=== PATIENT | female | born 1950 ===

== ENCOUNTER 2025-02-02 09:14 | Outpatient (REF) | payer OTHER, SELFPAY ==
[2025-02-02 13:06] LABS: MANUAL DIFF FLAG NO
[2025-02-02 13:13] LABS: Hematocrit 39.4 % (37.0-47.0); Hemoglobin 13.0 g/dl (12.0-16.0); Imm Gran Abs Auto 0.04 X10*3/uL (0.00-0.03); Imm Gran Pct Auto 0.5 % (0.0-0.4); Lymphocytes Absolute Auto 3.2 X10*3/uL (1.2-4.9); Mean Corpuscular HGB Conc 33.0 g/dl (31.0-35.0); Mean Corpuscular Hemoglobin 28.8 pg (27.0-33.0); Mean Corpuscular Volume 87.2 fL (80.0-98.0); NRBC Abs Auto 0.000 X10*3/uL (0.0-0.012); NRBC Pct Auto 0.0 /100WBC (0.0-0.2); Platelet Count 340 X10*3/uL (160-400); Red Blood Count 4.52 X10*6/uL (4.20-5.50); White Blood Count 7.4 X10*3/uL (4.8-10.8)
[2025-02-02 13:37] LABS: Alanine Aminotransferase 22 U/L (0-31); Albumin Level 4.7 g/dL (3.5-5.0); Alkaline Phosphatase 78 U/L (39-117); Anion Gap 13 (12-20); Aspartate Amino Transferase 23 U/L (5-31); Blood Urea Nitrogen 9 mg/dL (9-16); Calcium 9.9 mg/dL (8.4-10.2); Carbon Dioxide 25 mmol/L (22-29); Chloride 105 mmol/L (96-108); Cholesterol 221 mg/dL (<200); Estimated Glomerular Filt Rate > 60; HDL Cholesterol 45 mg/dL (>40); Magnesium 1.9 mg/dL (1.6-2.6); Potassium 3.9 mmol/L (3.3-5.1); Sodium 139 mmol/L (135-145); Total Protein 7.6 g/dL (6.5-8.0); Triglycerides 197 mg/dL (<150)
[2025-02-02 13:58] LABS: Folate 15.1 ng/mL (> or = 4.0); Vitamin B12 421 pg/mL (200-900)
[2025-02-03 04:28] LABS: Syphilis Screen Nonreactive (Nonreactive)
[2025-02-03 04:50] LABS: HBS Num1 0.65 mIU/mL (0-7.99); HBsAGNum1 0.43 S/CO (0.00-0.99); HIV Num 1 0.05 S/CO (0.00-0.99); Hepatitis B Surface Antigen Negative (Negative); ~HepC Num1 0.07 S/CO (0.00-0.79); ~Hepatitis B Surface Antibody NONREACTIVE (Nonreactive); ~Hepatitis C Antibody Nonreactive (Nonreactive)
[2025-02-06 05:13] LABS: VITAMIN D (1,25 OH) D3 42 pg/mL; Vit D (1,25-Dihydroxy) Total 42 pg/mL (18-72); Vitamin D (1,25 OH) D2 <8 pg/mL
== END 2025-02-02 09:15 | disposition home or self-care (01) ==
LOC: HO.HKASLDS 09:14
PROVIDERS: PCP Student in an Organized Health Care Education/Training Program; Visit Provider Student in an Organized Health Care Education/Training Program
DX: Z76.89 Persons encountering health services in other specified circumstances (principal); Z11.4 Encounter for screening for human immunodeficiency virus [HIV]; K21.9 Gastro-esophageal reflux disease without esophagitis; I10 Essential (primary) hypertension; E78.5 Hyperlipidemia, unspecified; E11.40 Type 2 diabetes mellitus with diabetic neuropathy, unspecified
CPT/HCPCS: 36415; 80053; 80061; 82607; 82652; 82746; 83036; 83735; 84443; 85025; 86706; 86780; 86803; 87340; 87389

== ENCOUNTER 2025-02-02 09:14 | Outpatient (AMB) | payer OTHER, SELFPAY ==
--- OUTSIDE RECORDS SUMMARY | 2012-02-05 04:00 | XMS_ITS | Continuity of Care Document ---
Author Organization [facility] Address [address] [place] [address] Phone Care Team Providers Care Biostatistics Professor Name Role Phone Unavailable Unavailable Unavailable Allergies, Adverse Reactions, Alerts Substance Reaction Status Criticality No Known Allergies Active No Inform ation Medications Medication Instructions Dosage Effective Dates (start - stop) Status Comments Glipizide 5 mg Tab take 1 tablet (5MG) by ORAL route every day before meals 5 MG - No Longer Active Metformin 500 mg Tab take 1 tablet (500MG) by ORAL route 2 times every day with morning and evening meals 500 MG - No Longer Active Lisinopril 20 mg Tab take 1 tablet (20MG) by ORAL route every day 20 MG - No Longer Active Procedures Procedure Date COMPLETE CBC W/AUTO DIFF WBC BASIC METABOLIC PANEL LIPID PANEL GLYCATED HEMOGLOBIN TEST MICROALBUMIN, QUANTITATIVE SPECIMEN HANDLING OFFICE/OUTPATIENT VISIT, [facility] Advance Directives Directive Yes / No Effective Date File Name No Information Encounters Encounter Description Practice Location Reason(s) For Visit Diagnoses Date Provider Providers Copied on Encounter [facility], [address], [place], [id number], [place] tel:[phone] [facility] Labs only (chief complaint) No Information 2 No Information OFFICE/OUTPA TIENT VISIT, [facility], [address], [place], [id number], [place] tel:[phone] [facility] DM/HTN (chief complaint) Diabetes Mellitus Type 2, Uncomplicated Hypertension, BenignObesity 2-201 2 No Information Family History Family Member Type Diagnosis Age At Onset No Information Payers Payer name Insurance type Covered republican ID Authoriza tion(s) No Information Social History [...]
--- OUTSIDE RECORDS SUMMARY | 2016-10-28 04:45 | XMS_ITS | Continuity of Care Document ---
Author Organization [facility] Address [address] [place] [address] Phone Care Team Providers Care Dolly Pusher Name Role Phone [facility] Unavailable Unavailable Procedures Procedure Date ELECTROCARDIOGRAM, COMPLETE OBSERV/HOSP SAME DATE EYE EXAM, NEW PATIENT Bilat dil retinal exam Advance Directives Directive Yes / No Effective Date File Name No Information Encounters Encounter Description Practice Location Reason(s) For Visit Diagnoses Date Provider Providers Copied on Encounter [facility], [address], [place], [address], [place] tel:[phone] [facility] SWA (chief complaint) Encounter for screening for cardiovascular disorders [facility]. [address] [place], [address], [place]. tel:[phone] Referring Provider: VAMSI GRANADOS, [address] [facility], [place], [address]. tel:[phone] OBSERV/HOSP SAME DATE [facility], [address], [place], [address], [place] tel:[phone] [facility] No Information Jn Wooten. [address], [address], [place], [address]. tel:[phone] [facility], [address], [place], [address], tel:[phone] [facility] retinal exam (chief complaint) Diabetes mellitus treated with oral medication Anthony Bustamante. [address], [address], [place], [id number] . tel:[phone] Family History Family Member Type Diagnosis Age At Onset No Information Payers Payer name Insurance type Covered constitution party ID Authordeyaniraa gabe(s) [facility] [id number] Social History Type Description Quantity Date Captured Comments Sex Female Smoking Status No Information Vital Signs Date / Time: Height Weight BMI Pulse Rate Blood Pressure Temperature Respiratory Rate Body Surface Area Head Circumference Head Circ. Percentile Wt./Justo. Percentile BMI percentile Pulse Ox Inhaled Ox 8:39 AM 56.00 in 73.028 kg (161.00 lbs) 36.0 9 kg/m eter (2) 73 /min 130/72 mm[Hg] 97.00 F 16 /min 1.70 meter(2) 98 % Chief Complaint And Reason For Visit From encounter dated '10/28/2016 08:45'. SWA (chief complaint). Description: SEE SCANNED DOCUMENTS. Reason For Referral Reason For Referral No Information Plan Of Treatment Date Type Action Status Goal Zoster vaccine. Due on due Goal DEXA scan. Due on 7 due Goal Td vaccine. Due on 17 due Goal Depression screening. Due on due Goal FOBT. Due on due Goal Eye Exam. Due on due Goal Foot Exam. Due on 7 due Goal Mammogram. Due on 7 due Goal Colonoscopy. Due on 017 due Goal Sigmoidoscopy. Due on due Goal Influenza vaccine. Due on due Goal Tdap. Due on due Goal Pap/HPV testing. Due on due Goal Pneumococcal vaccine. Due on due History Of Present Illness Encounter Date Complaint History Of Prese nt Illness SWA SEE SCANNED DOCU MENTS. Functional Status Date Functional Assessmen t Pain Score 0/10 Instructions Date Instruction Additional Infor mation No Information Assessments Type Assessment Date No Information Patient Care Teams Name Effective Dates (start - stop) Status Members No Information
--- OUTSIDE RECORDS SUMMARY | 2022-01-15 10:03 | XMS_ITS | Continuity of Care Document ---
Author Organization [facility] Address [address] [place] [address] Care Team Providers Care Internal Medicine Hospitalist Name Role Phone Rivas OD, Lavender Unavailable Unavailable Advance Directives Directive Yes / No Effective Date File Name No Information Encounters Encounter Description Practice Location Reason(s) For Visit Diagnoses Date Provider Providers Copied on Encounter [facility], [address], [place], [place], [id number], [place] [address] LMO routine exam (chief complaint) No Information Rivas Lavender. [address] [facility], [address], [place], [place], [address], [place]. tel:[phone] Family History Family Member Type Diagnosis Age At Onset No Information Payers Payer name Insurance type Covered democrat ID Authoriza tion(s) No Information Social History [...]
--- OUTSIDE RECORDS SUMMARY | 2023-10-20 05:15 | XMS_ITS ---
Author Organization [employer] Address [address] [place] [address] Care Team Providers Care Lathmaker Name Role Phone Wilfrido SUNG, Niraj Primary Care Provider Edson Garces PA-C REASON FOR VISIT 3m fasting labs Encounters Encounter Location Date Provider Diagnosis [facility] [address] [place] [id number] 10/20/2023 Edson Garces Plan Of Treatment No Information Progress Notes * Mimi ALBRECHTDOB:1950 (74 yo F)Acc No.[id number]:10/20/2023 UNLOCKED PROGRESS NOTE Patient: Mimi Gleason Provider: Solange Garces PA-C :1950 A ge:73 Y S ex:Female Date:10/20/2023 Address:[facility] [place] [facility] [id number] Pcp:Niraj Anna MD Subjective: * Chief Complaints: * 3 m fasting labs Objective: Past Vitals:* 07/21/2023 BP:sittin/59mm Hg, RR:1 6/min, Pulse:sittin/min, Temp:oral:97.3F, Ht:56in, Wt:148.2lbs, BMI:33.22Index, Oxygen Sat:Room Air:98%, Pain Scale:01-10 * Electronic signature of Vlad Garces PA-C, PA-C on 02/02/2025 at 09:01 AM CDT Sign off status: Pending * Provider: Solange Garces PA-C Date: 0 10/20/2023 Generated for Anjali madison/Lv/Isabelle on: 1 09:01 AM CDT
--- OUTSIDE RECORDS SUMMARY | 2023-12-04 09:15 | XMS_ITS ---
Author Organization [facility] Billing Info Address [address] [place], [place] [address] Care Team Providers Care Tank Cleaning Supervisor Name Role Phone Unruly Kenney Primary Care Provider Unavailabl e UNRULY KENNEY Unavailable [phone] DOMINIC SHANKS Unavailable [phone] Allergies Allergen (clinical drug ingredient) Drug/Non Drug Allergy documented on EMR Reaction Allergy Type Onset Date Status empagliflozin Jardiance nausea/vomiting Drug Allergy Active trazodone Trazodone intolerance Drug Allergy Activ e Reason For Referral Reason eval and treat Diagnosis 1 Left lumbar radiculo chuy (M54.16) Referral Organization [id number] Referring Provider First Name DOMINIC Referring Provider Last Name DIMITRIS Referring Provider Speciality Nurse Prac titioner Referred Provider [place] Referred Provider Specialty Physical The rapy General Notes KRISTI JACOBS 01:23:31 PM >eval and treat [facility] Clinical Notes KRISTI JACOBS 02:47:05 PM >left message for patient to call and schedule an appointment with specialist, KRISTI VICENTE 12/11/2023 10:27:43 AM >rerouted per patientJULES MELISSA 12/11/2023 10:29:43 AM >left message for patient to call and schedule an appointment with specialist Referral Priority Routine REASON FOR VISIT Lt glut / leg pain x 3/d w/ radiculapathy [id number] Medications Medication SIG (Take, Route, Frequency, Duration) [...] 12/04/2023 Encounters Encounter Location Date Provider Diagnosis [id number] [address] [address] [place], [place] [id number] 12/04/2023 DOMINIC SHANKS Left lumbar radiculopathy M54.16 [...] 12/04/2023, eval and treat, Spine and Rehab [place] Next Appt Details Follow Up: prn, Reason: Progress Notes * Mimi ALBRECHTDOB:1950 (73 yo F)Acc No.[id number]:12/04/2023 PROGRESS NOTE Patient: Mimi BENTLEY Provider: MOSHE Pace :1950 A ge:73 Y S ex:Female Date:12/04/2023 C #:[id number] Address:[address] [place] [address], [facility] Pcp:Unruly Kenney Patient's Default Facility:[address] [place] [address] MED [facility] Subjective: * Chief Complaints: * L t glut / leg pain x 3/d w/ radiculapathy [id number] * HPI: F irst Point of Contact [...] or a close contact traveled outside the [facility] and you are now ill? N o [...] pain. Pt has a pending trip to [place]. * Medical History: * Surgical History: N [...] ast Orders: L ab:Comp. Metabolic Panel (14) ([id number]) (Order Date - 10/02/2023) (Collection Date & [...] 0 12/04/2023 Generated for Anjali madison/Lv/Isabelle on: 1 08:59 AM CDT History and Physical Notes * HPI [...] pain. Pt has a pending trip to [place]. First Point of Contact Screening Do any [...]
--- OUTSIDE RECORDS SUMMARY | 2023-12-08 05:49 | XMS_ITS ---
Author Organization [facility]ician [facility] Billing Info Address [address] [place], [place] [address] Care Team Providers Care Gear Technician Name Role Phone Sinan Kenney Primary Care Provider SINAN Olivas Unavailable [phone] REASON FOR VISIT New Referral Encounters Encounter Location Date Provider [id number] [address] [address] [place], [place] [address] 12/08/2023 SINAN KENNEY Plan Of Treatment No Information Progress Notes * Mimi ALBRECHTDOB:1950 (73 yo F)Acc No.[id number]:12/08/2023 Patient: Mimi BENTLEY :1950 A ge:73 Y S ex:Female Address:[address], [place], [address] * true * Date: Generated for Printi ng/Fajoyg/eTransmitting on: 09:00 AM CDT
--- OUTSIDE RECORDS SUMMARY | 2023-12-18 05:03 | XMS_ITS ---
Author Organization [facility] Billing Info Address [address] [place], [place] [address] Care Team Providers Care Director Of Global Sales Name Role Phone Unruly Kenney Primary Care Provider UNRULY Olivas [facility] [phone] REASON FOR VISIT Refill Medications Medication SIG (Take, Route, Frequency, Duration) Notes Start Date End Date Status Amlodipine Besylate 10 MG 1 tablet Orally Once a day Active Encounters Encounter Location Date Provider Diagnosis [id number] [address] [address] [place], [place] [address] 12/18/2023 UNRULY KENNEY Essential hypertensi on I10 [...] Notes * AMBROCIO MimiDOB:1950 (73 yo F)Acc No.[id number]:12/18/2023 Patient: Mimi BENTLEY :1950 A ge:73 Y S ex:Female Address:[facility] [address], [place], [address] * Refills Refill Amlodipine Besylate Tablet, 10 MG, Orally, 1 tablet, Once a day Stop Telmisartan-HCTZ Tablet, 80-12.5 MG, Orally, 1 tablet, Once a day in AM for high blood pressure * true * Date: Generated for Anjali madison/Lv/Isabelle on: 1 08:59 AM CDT
--- OUTSIDE RECORDS SUMMARY | 2024-01-14 10:00 | XMS_ITS ---
Author Organization [facility] Billing Info Address [address] [place], [place] [address] Care Team Providers Care Accountant Controller Name Role Phone Sinan Kenney Primary Care Provider SINAN Olivas [facility] [phone] Allergies Allergen (clinical drug ingredient) Drug/Non Drug [...] smoker Encounters Encounter Location Date Provider Diagnosis [id number] [facility] [address] [address] [place], [place] [phone] 01/14/2024 SINAN KENNEY Assessments Encounter Date Diagnosis (ICD Code) Assessment Notes Treatment Notes Treatment Clinical Notes Section Notes 01/14/2024 Other A Healthy Lifestyle: Care Instructions material was published Plan Of Treatment Treatment Notes Assessment Notes Other A Healthy Lifestyle: Care Instructions material was published Progress Notes * Mimi ALBRECHTDOB:1950 (74 yo F)Acc No.[id number]:01/14/2024 PROGRESS NOTE Patient: Mimi BENTLEY Provider: Tamar KENNEY MD :1950 A ge:73 Y S ex:Female Date:01/14/2024 C HN#:[id number] Address:[facility] [address], [phone] Pcp:Sinan Kenney Patient's Default Facility:[address] [place] [address] MED ASS[facility] Subjective: * Chief Complaints: * [...] MD Date: 0 01/14/2024 Generated for Anjali madison/vL/Kapilitting on: 09:00 AM CDT History and Physical Notes * [...] ill? : No OFFICE USE (If universal Baccarat jordana is not in place, provide patients age 2 years and older with a facemask to wear over their mouth and nose while in the practice.):: Patient answered no to all questions OR only answered yes to question 1 No further action needed : 01/14/2024
--- OUTSIDE RECORDS SUMMARY | 2024-02-11 03:26 | XMS_ITS ---
Author Organization [facility] Physician Servic es Billing Info Address [address] [place], [place] [address] Care Team Providers Care Electron Beam Machine Welder Setter Name Role Phone Unruly Kenney Primary Care Provider UnavailUNRULY Vanegas Unavailable [phone] REASON FOR VISIT reschedule Encounters Encounter Location Date Provider Diagnosis [id number] [address] [address] [place], [place] [phone] 02/11/2024 UNRULY KENNEY Plan Of Treatment No Information Progress Notes * Mimi ALBRECHTDOB:1950 (73 yo F)Acc No.[id number]:02/11/2024 Patient: Mimi BENTLEY :1950 A ge:73 Y S ex:Female Address:[facility] [address], [place], [address] * true * Date: Generated for Printi ng/Fajoyg/eTransmitting on: 09:00 AM CDT
--- OUTSIDE RECORDS SUMMARY | 2024-08-27 11:30 | XMS_ITS ---
Author Organization [facility] Address [address] [place] [address] Care Team Providers Care Electronic Engineering Draftsperson Name Role Phone Chiki Jarquin Primary Care Provider Sujata Santos [phone] REASON FOR VISIT Puerto Rican SpeakerHeart beating irregularly - RR, Consent forms on file-VS Encounters Encounter Location Date Provider Diagnosis [facility] [address] [place] [address] 08/27/2024 Sujata Santos Plan Of Treatment No Information Progress Notes * Mimi ALBRECHTDOB:1950 (74 yo F)Acc No.[id number]:08/27/2024 Patient: Mimi BENTLEY Provider: Tamar Santos APRN :1950 A ge:74 Y S ex:Female Date:08/27/2024 External Visit ID:[id number] [address] [place] Pcp:Chiki Jarquin Subjective: * Chief Complaints: * 1 . Puerto Rican SpeakerHeart beating irregularly - RR, Consent forms on file-VS. * Medical History: Objective: * Vitals: Assessment: Plan: * Treatment: * Billing Information: * Visit Code: * Procedure Codes: * Electronic signature of Giselle Santos APRN on 02/02/2025 at 09:59 AM EDT Sign off status: Pending * Provider: Tamar Santos APRN Date: 0 08/27/2024 Generated for Anjali madison/Lv/eTransmitting on: 1 09:59 AM EDT
--- OUTSIDE RECORDS SUMMARY | 2024-09-06 07:00 | XMS_ITS ---
Author Organization [facility] Address [address] [place] [address] Care Team Providers Care Studio Set Up Worker Name Role Phone Chiki Jarquin Primary Care Provider REASON FOR VISIT mtn a.cKelsey // Nikkie confirmed 08/30/24 11:23am Encounters Encounter Location Date Provider Diagnosis [address] [address] 09/06/2024 Chiki Jarquin Plan Of Treatment No Information Progress Notes * Mimi ALBRECHTDOB:1950 (74 yo F)Acc No.[id number]:09/06/2024 Progress Notes Patient: Mimi BENTLEY Provider: Milo Jarquin DO :1950 A ge:74 Y S ex:Female Date:09/06/2024 External Visit ID:[id number] [address] [place] [facility] Subjective: * Chief Complaints: * 1 . mtn a.cKelsey // Nikkie confirmed 08/30/24 11:23am. * Medical History: Objective: * Vitals: * Physical Examination: Assessment: Plan: * Treatment: Care Plan: * Problems: * Billing Information: * Visit Code: * Procedure Codes: Care Plan Details* * Electronic signature of Yesica Jarquin DO on 02/02/2025 at 09:59 AM EDT Sign off status: Pending * Provider: Milo Jarquin DO Date: 0 09/06/2024 Generated for Printi ng/Faxing/eTransmitting on: 1 09:59 AM EDT
--- OUTSIDE RECORDS SUMMARY | 2025-01-05 07:20 | XMS_ITS ---
Author Organization [facility] Address [address] [place] [address] Care Team Providers Care Document Specialist Name Role Phone Chiki Jarquin Primary Care Provider [phone] REASON FOR VISIT Diabetes Follow-up - gn Encounters Encounter Location Date Provider Diagnosis [address] [address] 01/05/2025 Chiki Jarquin Plan Of Treatment No Information Progress Notes * Mimi ALBRECHTDOB:1950 (74 yo F)Acc No.[id number]:01/05/2025 Progress Notes Patient: Mimi BENTLEY Provider: Milo Jarquin DO :1950 A ge:74 Y S ex:Female Date:01/05/2025 External Visit ID:[id number] [address] [place] Subjective: * Chief Complaints: * 1 . Diabetes Follow-up - gn. * Medical History: Objective: * Vitals: * Physical Examination: Assessment: Plan: * Treatment: Care Plan: * Problems: * Billing Information: * Visit Code: * Procedure Codes: Care Plan Details* * Electronic signature of Yesica Jarquin DO on 02/02/2025 at 09:59 AM EDT Sign off status: Pending * Provider: Milo Jarquin DO Date: 0 01/05/2025 Generated for Anjali madison/Lv/eTransmitting on: 1 09:59 AM EDT
[2025-02-02 09:27] VITALS: BP 154/68; PULSE 89; RESP 16; TEMP 36.7; O2SAT 98; BMI 34.3
--- NOTE | 2025-02-02 09:27 | A.OFFPC_ITS ---
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 Required: No Accompanied by: Self / Same As Patient Allergies empagliflozin (From Jardiance) Allergy (Mild, Verified 02/02/25 09:31) swollen lips gabapentin Allergy (Mild, Verified 02/02/25 09:31) swollen lips Tobacco use date assessed: 02/02/25 Fall risk assessment: No Falls in past year Last assessed Fall Risk: 02/02/25 Dental Screening Dental Screen Date: 02/02/25 Did you have a dental visit in the last 12 months?: Yes Did you have a dental problem in the last 6 months where you did not have access to dental care?: No Was dental information given to patient?: Patient has dentist HPI HPI Comments History of Present Illness Details History of Present Illness The patient is a 74-year-old female presenting for management of chronic conditions including diabetes mellitus, essential hypertension, diabetic neuropathy, and gastroesophageal reflux disease. Diabetes Mellitus: - The patient has had diabetes mellitus for approximately 30 years, managed with metformin 1000 mg twice daily. - Her last A1c was reported to be around 5, indicating good glycemic control. Essential Hypertension: - The patient is on losartan 50 mg twice daily for essential hypertension. Diabetic Neuropathy: - The patient experiences neuropathy and had an adverse reaction to gabapentin, resulting in lip and eye swelling. Gastroesophageal Reflux Disease (GERD): - The patient experiences stomach pain a t night, which is alleviated by esomeprazole, previously tried omeprazole without relief. Hyperlipidemia: - The patient has hyperlipidemia and att empts dietary modifications to manage it. Review of Systems - Endocrine: Reports diabetes mellitus, denies insulin use. - Cardiovascular: Reports essential hype rtension, denies chest pain. - Neurological: Reports neuropathy with adverse reaction to gabapentin. - Gastrointestinal: Reports GERD with ni ghttime stomach pain, alleviated by esomeprazole. - Musculoskeletal: Denies recent foot do ctor visits. - Ophthalmologic: Reports last eye exam last year, uses lenses. 10-point ROS reviewed and negative excep t as noted in HPI Past Medical History - Diabetes Mellitus for 30 years, manage d with metformin. - Essential Hypertension, managed with l osartan. - Diabetic Neuropathy with adverse react ion to gabapentin. - Gastroesophageal Reflux Disease, manag ed with omeprazole - Hyperlipidemia, attempts dietary modif ications. Health Maintenance - Mammography: Last performed last year, results normal. - Eye exam: Last performed last year, us es corrective lenses. colonoscopy performed last year as per patient normal Physical Exam General: Well-appearing, in no acute distress. Vital signs: Within normal limits. HEENT: Normocephalic, atraumatic. PERRLA, EOMI. Conjunctiva clear, sclera anicteric. Oropharynx clear, mucous membranes moist. TMs intact bilaterally. Neck: Supple, no lymphadenopathy, no thyromegaly, no JVD or carotid bruits. Cardiovascular: RRR, normal S1/S2, no murmurs, rubs, or gallops. Peripheral pulses 2+ and symmetric. No edema. Respiratory: Lungs clear to auscultation bilaterally, no wheezes, rales, or rhonchi. Normal effort. Abdomen: Soft, non-tender, non-distended. Normoactive bowel sounds. No hepatospl enomegaly, no masses. MSK: Full range of motion, no joint swelling or deformity. Normal gait. Skin: Warm, dry, intact. No rashes, lesions, or pallor. Neuro: Alert and oriented x3. Cranial nerves II-XII intact. Strength 5/5 throughout. Sensation intact. Reflexes 2+ symmetric. Normal coordination and gait. Psych: Appropriate mood and affect. Normal judgment and insight. Plan 1. Diabetes Mellitus - Continue metformin 1000 mg twice daily , monitor blood glucose levels regularly. 2. Essential Hypertension - Continue losartan 50 mg twice daily, m onitor blood pressure regularly. 3. Diabetic Neuropathy - Avoid gabapentin due to adverse reacti on, consider alternative neuropathy management options. 4. Gastroesophageal Reflux Disease (Gerd ) - Continue esomeprazole for GERD managem ent, monitor symptoms. 5. Hyperlipidemia - Continue dietary modifications, consid er lipid panel monitoring. Discussion Notes During the visit, we discussed the management of the patient's chronic conditions, including diabetes, hypertension, neuropathy, GERD, and hyperlipidemia. We reviewed the current medication regimen and emphasized the importance of regular monitoring of blood glucose and blood pressure. We also discussed the adverse reaction to gabapentin and the need to explore alternative treatments for neuropathy. The patient was advised to continue dietary modifications for hyperlipidemia and to monitor symptoms of GERD while on esomeprazole. Patient was informed and verbally consented to the use of an ambient scribe for clinic note documentation during this visit. Patient Instructions - Continue taking metformin and losartan as prescribed. - Monitor blood glucose and blood pressu re regularly. - Avoid gabapentin due to previous aller gic reaction. - Take esomeprazole for GERD and monitor symptoms. - Maintain dietary modifications to mary carmen ge cholesterol levels. [facility] Medical History (Updated 02/02/25 @ 10:07 by Lee Becerra MD) Chronic GERD without esophagitis Diabetic neuropathy GERD (gastroesophageal reflux disease) Hyperlipidemia Hypertension Diabetes mellitus type 2, controlled, without complications Family History (Updated 02/02/25 @ 09:37 by Cem Starks MA) Father No problems noted. Mother Stroke Social History (Updated 02/02/25 @ 09:37 by Cem Starks MA) Housing: House Alcohol intake: current Alcohol intake frequency: holidays/special occasions only Patient Tobacco Use Status: Never used Tobacco service: No Current occupational status: retired Cognitive needs: Yes (cane) Hearing needs: No Vision needs: Yes (rx glasses) Questionnaire PHQ-9 Over the last 2 weeks, how often have you been bothered by any of the following problems? 1. Little interest or pleasure in doing things: not at all 2. Feeling down, depressed, or hopeless: not at all 3. Trouble falling or staying asleep, or sleeping too much: several days 4. Feeling tired or having little energy: not at all 5. Poor appetite or overeating: not at all 6. Feeling bad about yourself - or that you are a failure or have let yourself or your family down: not at all 7. Trouble concentrating on things, such as reading the newspaper or watching television: not at all 8. Moving or speaking so slowly that other people could have noticed. Or the opposite - being so fidgety or restless that you have been moving around a lot more than usual: not at all 9. Thoughts that you would be better off or of hurting yourself in some way: not at all Total score: 1 Source: Developed by Drs. Frank Jacob, Laura Bahena, Pramod Gustafson and colleagues, with an educational reece from [employer]. Thrive Questionnaire I am a: Patient What is your living situation today?: I have a steady place to live Within the past 12 months, did the food you bought not last and you didn't have the money to get more?: I choose not to answer this question Within the past 12 months, did you worry whether your food would run out before you got money to buy more?: I choose not to answer this question Do you have trouble paying for medicines?: I choose not to answer this question Do you have trouble getting transportation to medical appointments?: I choose not to answer this question Do you have trouble paying your heating and electricity bill?: I choose not to answer this question Do you have trouble taking care of your child, family member or friend?: I choose not to answer this question Are you currently unemployed and looking for a job?: No Are you interested in more education?: No Please select the resources that you would like help with: None Currently or been in a relationship where the following occur: No concerns reported THRIVE Score: 0 AUDIT C Alcohol Use Questionnaire (AUDIT-C) 1. How often do you have a drink containing alcohol?: Never Total Score: 0 J LUIS-7 AMB Questionnaire J LUIS-7 Feeling nervous, anxious, or on edge: 0 = Not at all Not being able to stop or control worryin = Not at all Worrying too much about different things: 0 = Not at all Trouble relaxin = Not at all Being so restless that it is hard to sit still: 0 = Not at all Becoming easily annoyed or irritable: 1 = Several days Feeling afraid as if something awful might happen: 0 = Not at all Total J LUIS-7 score (0-4 normal; 5-9 mild; 10-14 moderate; 15-21 severe): 1 Source: Developed by Drs. Frank Jacob, Pramod Thomas and colleagues, with an educational reece from [employer]. Physical exam (Primary Care) Vital Signs: Last Vital Signs Temp 98.1 F 02/02/25 09:27 Pulse 89 02/02/25 09:27 Resp 16 02/02/25 09:27 BP 154/68 H 02/02/25 09:27 Pulse Ox 98 02/02/25 09:27 Oxygen Delivery Method Room Air 02/02/25 09:27 BMI result Body Mass Index 34.3 Tobacco/Smoking Status: Tobacco use Status Tobacco use date assessed 02/02/25 02/02/25 09:41 Patient Tobacco Use Status Never used Tobacco 02/02/25 09:41 PHQ-9: PHQ-9 Score PHQ-9: Total score 1 02/02/25 09:41 Currently or been in a relationship where the following occur: No concerns reported Coding Level of Care Code New Pt Level 3 (41754) Diagnoses Encounter to establish care Z76.89 Diabetes mellitus type 2, controlled, without complications E11.9 Hypertension I10 Hyperlipidemia E78.5 Encounter for screening, unspecified Z13.9 Counseling, unspecified Z71.9 Diabetic neuropathy E11.40 Chronic GERD without esophagitis K21.9 Assessment & Plan Assessment & Plan (1) Encounter to establish care: Code(s): Z76.89 - Persons encountering health services in other specified circumstances (2) Diabetes mellitus type 2, controlled, without complications: Code(s): E11.9 - Type 2 diabetes mellitus without complications Category: Medical (3) Hypertension: Code(s): I10 - Essential (primary) hypertension Category: Medical (4) Hyperlipidemia: Code(s): E78.5 - Hyperlipidemia, unspecified Category: Medical (5) Encounter for screening, unspecified: Code(s): Z13.9 - Encounter for screening, unspecified (6) Counseling, unspecified: Code(s): Z71.9 - Counseling, unspecified (7) Diabetic neuropathy: Code(s): E11.40 - Type 2 diabetes mellitus with diabetic neuropathy, unspecified Category: Medical (8) Chronic GERD without esophagitis: Code(s): K21.9 - Gastro-esophageal reflux disease without esophagitis Category: Medical Plan Orders: Orders Comprehensive Met. Panel Today Z13.9 - Encounter for screening, unspecified, Z76.89 - Persons encountering health services in other specified circumstances Hemoglobin A1c Today Z13.9 - Encounter for screening, unspecified, Z76.89 - Persons encountering health services in other specified circumstances Hepatitis B Surface Antibody Today Z13.9 - Encounter for screening, unspecified, Z76.89 - Persons encountering health services in other specified circumstances Hepatitis B Surface Antigen Today Z13.9 - Encounter for screening, unspecified, Z76.89 - Persons encountering health services in other specified circumstances Hepatitis C Antibody Today Z13.9 - Encounter for screening, unspecified, Z76.89 - Persons encountering health services in other specified circumstances Lipid Panel Today Z13.9 - Encounter for screening, unspecified, Z76.89 - Persons encountering health services in other specified circumstances Vitamin B12 and Folate Today Z13.9 - Encounter for screening, unspecified, Z76.89 - Persons encountering health services in other specified circumstances Vitamin D 1,25 dihydroxy Today Z13.9 - Encounter for screening, unspecified, Z76.89 - Persons encountering health services in other specified circumstances Complete Blood Count Auto Diff Today Z13.9 - Encounter for screening, unspecified, Z76.89 - Persons encountering health services in other specified circumstances HIV Ab/Ag Today Z13.9 - Encounter for screening, unspecified, Z76.89 - Persons encountering health services in other specified circumstances Magnesium Today Z13.9 - Encounter for screening, unspecified, Z76.89 - Persons encountering health services in other specified circumstances Syphilis Screen Today Z13.9 - Encounter for screening, unspecified, Z76.89 - Persons encountering health services in other specified circumstances TSH reflex Free T4 Today Z13.9 - Encounter for screening, unspecified, Z76.89 - Persons encountering health services in other specified circumstances UA CC w/rflx Micro + Cult Today Z13.9 - Encounter for screening, unspecified, Z76.89 - Persons encountering health services in other specified circumstances Microalbumin, Random (w Creat) Today Z13.9 - Encounter for screening, unspecified, Z76.89 - Persons encountering health services in other specified circumstances Referrals Podiatry Referral E11.9 - Type 2 diabetes mellitus without complications Ophthalmology Referral E11.9 - Type 2 diabetes mellitus without complications Nutrition/Dietitian Referral E11.9 - Type 2 diabetes mellitus without complications Nurse Navigator Referral E11.9 - Type 2 diabetes mellitus without complications Medications: New esomeprazole magnesium 40 mg PO DAILY 90 caps 0RF K21.9 - Gastro-esophageal reflux disease without esophagitis
--- OUTSIDE RECORDS SUMMARY | 2025-02-02 09:59 | XMS_ITS | Patient Health Record ---
Author Organization [employer] Address [address] [place] [address] Care Team Providers Care Member Certification Manager Name Role Phone Niraj Anna MD Primary Care Provider Allergies Allergen (clinical drug ingredient) Drug/Non Drug Allergy documented on EMR Reaction Allergy Type Onset Date Status empagliflozin Jardiance edema Drug Allergy 07/21/2023 Ac tive Reason For Referral No Information Medications Medication SIG (Take, Route, Frequency, Duration) Notes Start Date End Date Status traZODone HCl 50 MG Tablet 1 tablet at b edtime as needed Orally Once a day; Duration: 90 days Active Omeprazole 20 MG Capsule Delayed Release 1 capsule 30 minutes before morning meal Orally Once a day; Duration: 90 days Active amLODIPine Besylate 10 MG Tablet 1 tablet Orally Once a day; Duration: 90 days Active FreeStyle Lite Test - Strip use 1 strip In Vitro once daily; Duration: 90 days Active Losartan Potassium 50 MG Tablet 1 tablet Orally Once a day; Duration: 90 days Active metFORMIN HCl 1000 MG Tablet 1 tablet with a meal Orally Once a day in the evening; Duration: 90 days Active Atorvastatin Calcium 20 MG Tablet 1 tablet Orally Once a day; Duration: 90 days Active metFORMIN HCl 500 MG Tablet 1 tablet wit h a meal Orally Once a day in the morning; Duration: 90 days Active Social History Social History Elder Abuse Suspicion Index Social Info Question Answer Notes EASI 1. Have you relied o n people for any of the following: bathing, dressing, shopping or meals? Yes 2. Has anyone prevented you from getting food, clothes, medications, glasses, hearing aids or medical care, or from being with people you wanted to be with? No 3. Have you been upset becau se someone talked to you in a way that made you feel shamed or threatened? No 4. Has anyone tried to force you to sign papers or to use your money against your will? No 5. Has anyone made you afrai d, touched you in ways that you did not want, or hurt you physically? No Other Social Factors: Social Info Question Answer Notes Caffeine Intake: Frequency: 1-2 cups per day coffee, tea Pets: Do you have any pets? none Home Health: Is the patient in a Home Health program? No Exercise: Frequency: occasional walking Driving Status: Does the patient drive? yes Home detector use: Type of detector(s) used? smoke det ectors Functional Status: Pt uses ambulatory a ssisted device(s): No Patient/Family Concerns Concerns regardi ng abuse and/or neglect No Domestic Violence: none Travel outside of the [place]: In the last six m onths: none Seatbelt Use: Uses seatbelt everytime? Yes HISTORICAL Occupation: Employment status: unemployed Living with: spouse Marital status: Status: Tobacco Control Assessment Social Info Question Answer Notes Questionnaire 1. Do you currently use any form or forms of tobacco or nicotine? No 2. Have you in the past used any form or forms of tobacco or nicotine? No 3. Have you been/are you cur rently exposed to second hand smoke? No Interpretation: Non-smoker/Never smo ked (less than 100 cigarettes during individual's lifetime) Physical Activity Assessment Social Info Question Answer Notes Physical Activity Assessment 1. How physically active are you? Not at all active Additional Details Category Social Info Options Details Other Social Factors: ----- Annmarie Mandujano RMA 07/21/2023 10:56:45 AM > Problems Problem Type SNOMED Code ICD Code Onset Dates Problem Status W/U Status Risk Notes Problem Mixed hyperlipidemia (599799180) Mixed hyperlipidemia (E78.2) Active confirmed Problem Primary insomnia (9014129) Primary insomnia (F51.01) Active confirmed Problem Gastroesophageal reflux disease (292499247) GERD without esophagitis (K21.9) Active confirmed Problem Essential hypertension (03399022) Essential (primary) hypertension (I10) Active confirmed Problem Polyneuropathy due to type 2 diabetes mellitus (333414960) Type 2 diabetes mellitus with diabetic polyneuropathy, without long-term current use of insulin (E11.42) Active confirmed Problem Type 2 diabetes mellitus with other specified complication, unspecified whether care home insulin use (E11.69) Active confirmed Problem Screening procedure (87896708) Due for screening (Z13.9) Active confirmed Encounters Encounter Location Date Provider Diagnosis [facility] [address] [facility] [place] [phone] 03/09/2024 Niraj Anna [facility] [address] [facility] [id number] 03/11/2024 Niraj Anna [facility] [address] [facility] [id number] 03/11/2024 Niraj Anna [facility] [address] [facility] [place] [id number] 03/16/2024 Niraj Anna Plan Of Treatment Future Test Test Name Order Date Hemoglobin A1C 10/17/2023 Complete Blood Count With Differential W ith Reflex to Smear Review (CBC) 10/17/2023 Lipid Panel Without Ratio 10/17/2023 Comprehensive Metabolic Panel 14 (CMP) 0 10/17/2023 Insurance Providers Payer Name Payer Address Payer Phone Subscriber Number Group Number Insured Name Patient Relationship to Insured Coverage Start Date Coverage End Date [id number] [employer] [place] [address] [address] [place], [place] [id number] [phone] Mimi Vallejo Self - patient is the insured Medical (General) History Medical History History ICD Code diabetes high cholesterol hypertension acid reflux insomnia neuropathy [place], repeat in 2025 Surgical History Surgery Date(Month/Year) C section 1986 Hospitalization History Reason Date(Month/Year) 3 child 1973,1983, 1986 hypertension 2020
--- OUTSIDE RECORDS SUMMARY | 2025-02-02 10:00 | XMS_ITS | Patient Health Record ---
Author Organization [facility] Billing Info Address [address] [place] [address] Care Team Providers Care Assisted Living Assistant Name Role Phone Sinan Kenney Primary Care Provider SINAN Olivas Unavailable [phone] Allergies Allergen (clinical drug ingredient) Drug/Non Drug Allergy documented on EMR Reaction Allergy Type Onset Date Status empagliflozin Jardiance nausea/vomiting Drug Allergy Active trazodone Trazodone intolerance Drug Allergy Activ e Reason For Referral No Information Medications Medication SIG (Take, Route, Frequency, Duration) Notes Start Date End Date Status Losartan Potassium 50 MG 1 tablet Orally Once a day for 90 days Not-Taking Amlodipine Besylate 10 MG 1 tablet Orall y Once a day Active Ashwagandha 500 MG as directed Orally Active Metformin HCl 500 MG 1 tablet with a janessa l Orally Once a day for 90 days Active Atorvastatin Calcium 20 MG 1 tablet Orally Once a day for 90 days Active Beet Root 500 MG as directed Orally Active Omeprazole 10 MG 1 capsule 30 minutes before morning meal Orally Once a day for 90 days Active GlipiZIDE ER 2.5 MG 1 tablet with breakf ast Orally Once a day for 90 days 11/20/2023 Active Glucose Test Strips - Patient Choice of Test Strips -- check blood glucose as directed capillary as directed for 100 days 10/02/2023 Active Ibuprofen 600 MG 1 tablet with food o r milk Orally Three times a day for 14 days 12/04/2023 Active Handicap Placard for Mobility Impairment -- 10/02/2023 Activ e Gabapentin 300 MG 1 capsule Orally harsh ry 8 hrs prn nerve pain for 30 days 12/04/2023 Active Social History Tobacco Use: Social History Observation Description Date Details (start date - stop date) Never Smoker NA - NA Tobacco Status: Question Answer Notes Patient is a never smoker Problems Problem Type SNOMED Code ICD Code Onset Dates Problem Status W/U Status Risk Notes Problem 921090416 Overweight (E66.3) Active confirmed Problem 352829116 Mixed hyperlipid emia (E78.2) Active confirmed Problem 276388474 Dietary counseli ng and surveillance (Z71.3) Active confirmed Problem 52536648 Essential hypertension (I10) Active confirmed Problem 697548124 Chronic insomnia (F51.04) Active confirmed Problem 854959611 Gastroesophageal reflux disease without esophagitis (K21.9) Active confirmed Problem 454989686 BMI 28.0-28.9,ad ult (Z68.28) Active confirmed Problem 20919742 Lipoma of scalp (D17.0) Active confirmed Problem 121488313 Edema of both fe et (R60.0) Active confirmed Problem Diabetic peripheral neuropathy associated with type 2 diabetes mellitus (9534197384230 ) Type 2 diabetes mellitus with diabetic neuropathy, without long-term current use of insulin (E11.40) Active confirmed Problem 756664220 Osteopenia of multiple sites (M85.89) Active confirmed Problem 11219085 Type 2 diabetes mellitus with other specified complication, without long-term current use of insulin (E11.69) Active confirmed Encounters Encounter Location Date Provider Diagnosis [id number] [address] [address] [place], [place] [id number] 02/11/2024 SINAN KENNEY Plan Of Treatment Future Test Test Name Order Date Hemoglobin A1c ([id number]) 01/05/2024 Comp. Metabolic Panel (14) ([id number]) Insurance Providers Payer Name Payer Address Payer Phone Subscriber Number Group Number Insured Name Patient Relationship to Insured Coverage Start Date Coverage End Date [employer] MED ADVANTAGE CHOICE HMO [address] [address] [place], [place] [id number] GenevieveMimi Self - patient is the insured Medical (General) History Medical History History ICD Code HTN DM II DM Neuropathy HLD HTN Osteopenia GERD
--- OUTSIDE RECORDS SUMMARY | 2025-02-02 10:01 | XMS_ITS | Patient Health Record ---
Author Organization [facility] Address [address] [place] [address] Care Team Providers Care Extractions Technician Name Role Phone Chiki Jarquin Primary Care Provider [phone] Sujata Santos Unavailable [phone] Allergies No Known Allergies Results Component Value Reference Range Notes Comp Metabolic Panel w/eGFR 74205 Reviewed date:2024 01:53:00 PM Interpretation:glucose 125 Performing Lab:1, , [address] [place], [address] Catie Maier M.D. Notes/Report: Received Date: 0; 0; 0; 0; 0 FASTING:YES PATIENT UNABLE TO VOID; ADVISED TO RETURN FOR CO FASTING: YES GLUCOSE 125 65-99 mg/dL Fasting reference interval For someone without known diabetes, a glucose value between 100 and 125 mg/dL is consistent with prediabetes and should be confirmed with a follow-up test. UREA NITROGEN (BUN) 10 7-25 mg/dL CREATININE 0.54 0.60-1.00 mg/dL EGFR 98 > OR = 60 mL/min/1.73m2 BUN/CREATININE RATIO 19 6-22 (calc) SODIUM 139 135-146 mmol/L POTASSIUM 4.5 3.5-5.3 mmol/L CHLORIDE 101 98-110 mmol/L CARBON DIOXIDE 28 20-32 mmol/L CALCIUM 9.5 8.6-10.4 mg/dL PROTEIN, TOTAL 7.1 6.1-8.1 g/dL ALBUMIN 4.3 3.6-5.1 g/dL GLOBULIN 2.8 1.9-3.7 g/dL (calc) ALBUMIN/GLOBULIN RATIO 1.5 1.0-2.5 (calc) BILIRUBIN, TOTAL 0.6 0.2-1.2 mg/dL ALKALINE PHOSPHATASE 62 37-153 U/L AST 18 10-35 U/L Results slightl y increased due to hemolysis. ALT 11 6-29 U/L CBC (H/H,RBC,Indices,WBC,Plt ) 1759 Reviewed date:2024 01:53:00 PM Interpretation: Normal Performing Lab:NL1, , [address] [place], [address] Catie Maier M.D. Notes/Report: Received Date: [id number] 0; 0; 0; 0; 0 FASTING:YES PATIENT UNABLE TO VOID; ADVISED TO RETURN FOR CO FASTING: YES WHITE BLOOD CELL COUNT 7.9 3.8-10.8 Thousand/ uL RED BLOOD CELL COUNT 4.36 3.80-5.10 Million/uL HEMOGLOBIN 12.6 11.7-15.5 g/dL HEMATOCRIT 38.8 35.0-45.0 % MCV 89.0 80.0-100.0 fL MCH 28.9 27.0-33.0 pg MCHC 32.5 32.0-36.0 g/dL For adults, a slight decrease in the calculated MCHC value (in the range of 30 to 32 g/dL) is most likely not clinically significant; however, it should be interpreted with caution in correlation with other red cell parameters and the patient's clinical condition. RDW 13.0 11.0-15.0 % PLATELET COUNT 315 140-400 Thousand/uL MPV 10.0 7.5-12.5 fL Hemoglobin A1c 496 Reviewed date:2024 01:53:00 PM Interpretation:7.6 Performing Lab:NL1, , [address] [place], [address] Catie Maier M.D. Notes/Report: Received Date: [id number] 0; 0; 0; 0; 0 FASTING:YES PATIENT UNABLE TO VOID; ADVISED TO RETURN FOR CO FASTING: YES HEMOGLOBIN A1c 7.6 <5.7 % For someone without known diabetes, a hemoglobin A1c value of 6.5% or greater indicates that they may have diabetes and this should be confirmed with a follow-up test. For someone with known diabetes, a value <7% indicates that their diabetes is well controlled and a value greater than or equal to 7% indicates suboptimal control. A1c targets should be individualized based on duration of diabetes, age, comorbid conditions, and other considerations. Currently, no consensus exists regarding use of hemoglobin A1c for diagnosis of diabetes for children. Lipid Panel w/refl LDL 69585 Reviewed date:2024 01:53:00 PM Interpretation: Normal Performing Lab:NL1, , [address] [place], [address] Catie Maier M.D. Notes/Report: Received Date: [id number] 0; 0; 0; 0; 0 FASTING:YES PATIENT UNABLE TO VOID; ADVISED TO RETURN FOR CO FASTING: YES CHOLESTEROL, TOTAL 161 <200 mg/dL HDL CHOLESTEROL 52 > OR = 50 mg/dL TRIGLYCERIDES 121 <150 mg/dL LDL-CHOLESTEROL 87 Reference range: <100 Desirable range <100 mg/dL for primary prevention; <70 mg/dL for patients with CHD or diabetic patients with > or = 2 CHD risk factors. LDL-C is now calculated using the Lewis-Jose E calculation, which is a validated novel method providing better accuracy than the Friedewald equation in the estimation of LDL-C. Lewis SS et al. ARMAND. 2013;310(19): 4612-6603 (http://education.[employer]faq/INP436) CHOL/HDLC RATIO 3.1 <5.0 (calc) NON HDL CHOLESTEROL 109 <130 mg/dL (calc) For patients with diabetes plus 1 major ASCVD risk factor, treating to a non-HDL-C goal of <100 mg/dL (LDL-C of <70 mg/dL) is considered a therapeutic option. Urinalysis IH Reviewed date:09/03/2024 11:28:25 AM Interpretation:Normal Performing Lab: Notes/Report: Normal Exp. Date 02/01/2025 Lot No. [id number] Leuko Negative Nitrite Negative Urobilinogen 0.2 Protein Negative pH 6.0 Blood Negative Sp. Gr. 1.010 Ketone Negative Biliruben Negative Glucose 100 mg/dl Reason For Referral Reason chest pain Diagnosis 1 Chest pain (R07.9) Diagnosis 2 Long QT interval (I4 5.81) Diagnosis 3 Congestive heart dis ease (I50.9) Diagnosis 4 Left axis deviation (R94.31) Referral Organization [facility] Referring Provider First Name Chiki Referring Provider Last Name Britton Referring Provider Speciality Internal M edicine Referred Provider [facility] Referred Provider Specialty Cardiology General Notes Jose D Referral Field Spec Roxann thurman 09/07/2024 02:12:09 PM > faxed referral medical summary progress note labs noEKG [phone], pernell, support 09/07/2024 14:23:00 PM>, [facility]: Referral for , [facility] no auth required, pernell, support 09/07/2024 14:23:00 PM>, [facility]: Referral Recommendations Sent to Patient , [facility] , [address] , [facility], [id number] , , , [employer], support 09/10/2024 14:26:00 PM>, [facility] 09/10/24 02:15 PM: Patient Reviewed Link, pernell, support 09/15/2024 14:23:00 PM>, [facility] 09/15/24 02:17 PM: Patient Confirmed Appt Scheduled, pernell, support 09/20/2024 10:39:00 AM>, [facility] 09/20/24 09:55 AM: Patient opted out of SMS communication., pernell, support 10/20/2024 15:51:42 PM>, [facility] Summary, [facility] 09/07/24 01:13 PM: Patient Sent Specialist Recommendation , [facility] , [address] , [facility], [id number] , , , [facility] 09/10/24 01:13 PM: Patient Sent Recommendations - 2nd Attempt, [facility] 09/10/24 01:15 PM: Patient Reviewed Link, [facility] 09/15/24 01:15 PM: Confirmation of Scheduled Appointment - 1st Request, [facility] 09/15/24 01:17 PM: Appointment Date 1st Request, [facility] 09/15/24 01:17 PM: Patient Confirmed Appt Scheduled, [facility] 09/17/24 01:16 PM: Appointment Date 2nd Request, [facility] 09/17/24 01:19 PM: Patient Provided Appointment Date - 11/16/2024, [facility] 09/20/24 08:55 AM: Patient opted out of SMS communication., Lee Fermin 11/18/2024 12:18:53 PM > consult received Referral Priority Routine Referral Appointment Date 11/16/2024 Medications Medication SIG (Take, Route, Frequency, Duration) Notes Start Date End Date Status Accu-Chek Guide Test - 1 In Vitro 3 times a day for 90 days 11/18/2024 Active Durable Medical Equipment Accu-Check lancets DX code E11.9 three times a day for 90 days 11/18/2024 Active Omeprazole 40 MG 1 capsule Orally Once a day for 90 days Active FreeStyle Lancets - USE TO CHECK BLOOD GLUOCSE ONCE A DAY for 90 Days Active True Metrix Blood Glucose Test - 1 In Vitro 4 times a day for 90 days pls disregard metformin 1000 once a day prescription 08/09/2024 Active metFORMIN HCl 1000 MG TAKE 1 TABLET BY MOUTH DAILY WITH A MEAL Oral twice a day for 90 days Active FreeStyle Lite w/Device USE TO TEST BLOOD SUGAR ONCE A DAY for 90 Days Active Accu-Chek Guide Test - 1 In Vitro once a day for 90 days 11/16/2024 Active FreeStyle Lite Test - USE TO CHECK BLOOD GLUCOSE ONCE A DAY In Vitro for 90 Days Active Accu-Chek Guide w/Device 1 subcutaneous once a day for 90 11/16/2024 Active Losartan Potassium 50 MG 1 tablet Orally twice a day for 90 days Active Atorvastatin Calcium 10 MG TAKE 1 TABLET BY MOUTH EVERY DAY Oral for 90 Days Active Social History Tobacco Use: Social History Observation Description Date Details (start date - stop date) Never Smoker NA - NA Tobacco Control (Standard) Question Answer Notes Tobacco use: Nonsmoker Problems Problem Type SNOMED Code ICD Code Onset Dates Problem Status W/U Status Risk Notes Problem Body mass index 30.00 to 34.99 (785652645260729 ) Body mass index (BMI) 33.0-33.9, adult (Z68.33) 5 Active confirmed Problem Body mass index 30.00 to 34.99 (883982399833908 ) Body mass index (BMI) 34.0-34.9, adult (Z68.34) 5 Active confirmed Problem Hypertension (05961502) Hypertension (I10) Active confirmed Problem Long QT syndrome (3728197) Long QT interval (I45.81) Active confirmed Problem Congestive heart disease (83894013) Congestive heart disease (I50.9) Active confirmed Problem Left axis deviation (59019018) Left axis deviation (R94.31) Active confirmed Problem Type II diabetes mellitus without complication (251258120) DM type 2, goal HbA1c < 7% (E11.9) Active confirmed Vital Signs Temperature 98.5 degrees Fahrenheit 09/03/2024 Respiratory Rate 16 /min 09/03/2024 Oximetry 98 % 09/03/2024 Blood pressure diastolic 85 mm Hg 09/03/2024 Height 57 in 09/03/2024 Blood pressure systolic 138 mm Hg 09/03/2024 Weight 156.4 lbs 09/03/2024 BMI 33.84 kg/m2 09/03/2024 Encounters Encounter Location Date Provider Diagnosis [facility] of [address] [address] 08/09/2024 Chiki Jarquin DM type 2, goal HbA1 c < 7% E11.[address] [address] 08/10/2024 Chiki Jarquin [address] [address] 08/20/2024 Chiki Jarquin [address] [address] 2024 Chiki Jarquin [address] [address] 09/13/2024 [place] [address] 10/15/2024 Chiki Jarquin [address] [id number] [address] 10/21/2024 Chiki Jarquin [address] [address] 11/16/2024 Chiki Jarquin [address] [address] 11/18/2024 Chiki Jarquin [address] [address] 12/13/2024 Chiki Jarquin Hypertension I10 and DM type 2, goal HbA1c < 7% E11.[address] [address] 09/03/2024 Chiki Jarquin Chest pain R07.9 ; Congestive heart disease I50.9 ; Left axis deviation R94.31 ; Long QT interval I45.81 ; Hypertension I10 ; Body mass index (BMI) 33.0-33.9, adult Z68.33 and Dysuria R30.[address] [address] 08/09/2024 Chiki Jarquin Encounter for behavioral health screening Z13.30 ; DM type 2, goal HbA1c < 7% E11.9 ; Hypertension I10 ; Congestive heart disease I50.9 and Body mass index (BMI) 34.0-34.9, adult Z68.34 Assessments Encounter Date Diagnosis (ICD Code) Assessment Notes Treatment Notes Treatment Clinical Notes Section Notes 08/09/2024 DM type 2, goal HbA1c < 7% (ICD-10 - E11.9) 08/09/2024 Encounter for behavioral health screening (ICD-10 - Z13.30) 08/09/2024 DM type 2, goal HbA1c < 7% (ICD-10 - E11.9) 09/03/2024 Chest pain (ICD-10 - R07.9) 09/03/2024 Congestive heart disease (ICD-10 - I50.9) 12/13/2024 Hypertension (ICD-10 - I10) 12/13/2024 DM type 2, goal HbA1c < 7% (ICD-10 - E11.9) 09/03/2024 Left axis deviation (ICD-10 - R94.31) 08/09/2024 Hypertension (ICD-10 - I10) 08/09/2024 Congestive heart disease (ICD-10 - I50.9) 09/03/2024 Long QT interval (ICD-10 - I45.81) 08/09/2024 Body mass index (BMI) 34.0-34.9, adult (ICD-10 - Z68.34) 09/03/2024 Hypertension (ICD-10 - I10) 09/03/2024 Body mass index (BMI) 33.0-33.9, adult (ICD-10 - Z68.33) 09/03/2024 Dysuria (ICD-10 - R30.0) 08/09/2024 Other Plan Of Treatment Pending Test Test Name Order Date Microalbumin,[facility] (w/creat) 6517 0 11/2024 Cologuard 10/22/2024 Insurance Providers Payer Name Payer Address Payer Phone Subscriber Number Group Number Insured Name Patient Relationship to Insured Coverage Start Date Coverage End Date [facility] [address] [place] [address] [phone] [id number] Mimi Vallejo Self - patient is the insured [employer] Cortney Boogie MD [address] [place] [address] [id number] Mimi Vallejo Self - patient is the insured Medical (General) History Hospitalization History Reason Date(Month/Year) HTN
--- OUTSIDE RECORDS SUMMARY | 2025-02-02 10:01 | XMS_ITS | Clinical Summary ---
Author Organization [facility] Address [address] [place] [address] Care Team Providers Care Fire Claims Adjuster Name Role Phone Chiki Jarquin DO Primary Care Provider [phone] Pravin Davis MD Unavailable Allergies Active Allergy Reactions Criticality Noted Date Comments Gabapentin Swelling Medium 11/16/2024 Lip and face Empagliflozin Swelling Medium 11/16/2024 Lip and face swelling Medications losartan (COZAAR) 100 MG tablet Take 1 tablet (100 mg total) by mouth daily. 08/11/2024 Active OMEprazole (PriLOSEC) 40 MG capsule Take 1 capsule (40 mg total) by mouth every morning before breakfast. 11/03/2024 Active atorvastatin (LIPITOR) 20 MG tablet Take 1 tablet (20 mg total) by mouth daily. Active metFORMIN (GLUCOPHAGE) 1000 MG tablet Take 1 tablet (1,000 mg total) by mouth 2 (two) times a day with meals. 08/09/2024 Active amLODIPine (NORVASC) 10 MG tablet Take 1 tablet (10 mg total) by mouth daily. Active glipiZIDE (GLUCOTROL XL) 2.5 MG 24 hr tablet Take 1 tablet (2.5 mg total) by mouth every morning with breakfast. Active Ascorbic Acid (VITAMIN C PO) Take by mouth. Active VITAMIN D PO Take by mouth. Active Active Problems Problem Noted Date Diagnosed Date Chest pain 11/16/2024 Abnormal ECG 11/16/2024 Primary hypertension 11/16/2024 Mixed hyperlipidemia 11/16/2024 Encounters Date Type Department Care Team Description 11/16/2024 9:00 AM EDT Consult [facility] [place] [address] [facility] [address] [place] [address] Pravin Davis MD Chest pain, unspecified type (Primary Dx); Abnormal ECG; Primary hypertension ; Mixed hyperlipidemia 11/16/2024 Travel from Last 3 Months Family History Medical History Relation Name Comments No Known Problems Father No Known Problems Mother Relation Name Status Comments Father Mother Social History Tobacco Use Types Packs/Day Years Used Date Smoking Tobacco: Never Smokeless Tobacco: Never Tobacco Cessation:Counseling Given: Not Answered Alcohol Use Standard Drinks/Week Comments Not Currently 0 (1 standard drink = 0.6 oz pur e alcohol) Comments Unknown Sex and Gender Information Value Date Recorded Sex Assigned at Female 09/10/2024 2:32 PM EDT Legal Sex Female 8:27 AM EDT Gender Identity Female 09/10/2024 2:32 PM EDT Sexual Orientation Heterosexual (straight) 09/10 2:32 PM EDT Last Filed Vital Signs Vital Sign Reading Time Taken Comments Blood Pressure 143/64 11/16/2024 8:22 AM EDT Pulse 102 11/16/2024 8:22 AM EDT Temperature - - Respiratory Rate - - Oxygen Saturation - - Inhaled Oxygen Concentration - - Weight 71.4 kg (157 lb 6.4 oz) 11/16/2024 8:22 A M EDT Height 134.6 cm (4' 5 ) 11/16/2024 8:22 AM EDT Body Mass Index 39.4 11/16/2024 8:22 AM EDT Plan of Treatment Health Maintenance Due Date Last Done Comments Advance Care Planning 1950 Hepatitis C Virus Screening 1950 DTaP/Tdap/Td Vaccines (1 - Tdap) 08/24/1970 Mammogram 1991 Colonoscopy 08/24/1996 Pneumococcal Vaccines 50+ (1 of 1 - PCV) 08/24/2001 Zoster (Shingles) Vaccine (1 of 2) 08/24/2001 RSV Vaccine 60 years and old er and Patients (1 - Risk 60-74 years 1-dose series) 2011 DXA Bone Density (Females,Ag es 65 and older) 08/24/2016 Influenza Vaccine 12/03/2024 COVID-19 Vaccine ( - 2023-2 5 season) 2025 Hepatitis B Vaccines Aged Out No long er eligible based on patient's age to complete this topic Procedures Procedure Name Priority Date/Time Associated Diagnosis Comments ECG 12-LEAD Routine 11/16/2024 8:41 AM EDT Chest pain, unspecified type from Last 3 Months Results * ECG 12 lead (11/16/2024 8:41 AM EDT) Ventricular rate 102 BPM EKG [facility] Atrial rate 102 BPM EKG [facility] P-R interval [address] [facility] QRS duration [address] [facility] Q-T interval [address] [facility] QTC calculation (Bazett) 453 ms EKG [facility] P axis 36 degrees EKG [facility] R axis -37 degrees EKG [facility] T axis 39 degrees EKG [facility] 11/16/2024 8:41 AM EDT Narrative EKG [facility] - 11/16/2024 2:55 PM EDT Sinus tachycardia Left anterior fascicular block Abnormal ECG No previous ECGs available Confirmed by MD Davis Eran () on 11/16/2024 2:55:46 PM Procedure Note Pravin Davis MD - 11/16/2024 Sinus tachycardia Left anterior fascicular block Abnormal ECG No previous ECGs available Confirmed by MD Davis Eran () on 11/16/2024 2:55:46 PM Pravin Davis MD ECG ORDERABLES Final Result [facility] from Last 3 Months Insurance [facility] MEDIC[facility] Care Teams Fire Claims Adjuster Relationship Specialty Start Date End Date Chiki Jarquin DO [address] [place] [id number] PCP - General Internal Medicine 09/10/24 Pravin Davis MD [address] [place] [address] Primary Foot Orthopedist Cardiovascular Disease 11/18/24
--- OUTSIDE RECORDS SUMMARY | 2025-02-02 10:01 | XMS_ITS ---
Author Name [facility] Organization Unknown History of Medication Use Medication Directions Dispensed Refills Start Date End Date Stat us OMEprazole (PriLOSEC) 40 MG capsule Take 1 capsule (40 mg total) by mouth every morning before breakfast. 11/03/2024 active losartan (COZAAR) 100 MG tablet Take 1 tablet (100 mg total) by mouth daily. 08/11/2024 active metFORMIN (GLUCOPHAGE) 1000 MG tablet Take 1 tablet (1,000 mg total) by mouth 2 (two) times a day with meals. 08/09/2024 active amLODIPine (NORVASC) 10 MG tablet Take 1 tablet (10 mg total) by mouth daily. active atorvastatin (LIPITOR) 20 MG tablet Take 1 tablet (20 mg total) by mouth daily. active glipiZIDE (GLUCOTROL XL) 2.5 MG 24 hr tablet Take 1 tablet (2.5 mg total) by mouth every morning with breakfast. active VITAMIN D PO Take by mouth. acti ve Allergies Allergen Reaction Severity Comment Documented Date Source Statu s EMPAGLIFLOZIN SWELLING Lip and face swelling 11/16/2024 [facility] active GABAPENTIN SWELLING Lip and face 11/16/2024 [facility] acti ve Problems Problem Status Onset Date Problem Type Date of Resoluti on Source Chest pain active 2024-11-16 ProblemAct [facility] Mixed hyperlipidemia active 2024-11-16 ProblemAct [facility] Abnormal ECG active 2024-11-16 ProblemAct [facility] Primary hypertension active 2024-11-16 ProblemAct [facility] Encounters Encounter Type Encounter Reason Primary Diagnosis Location Date Ambulatory Chest pain, unspecified Chest pain, unspecified [facility] 11/16/2024 Ambulatory Heart failure, unspecified (CMS/HCC V24, CMS/[facility] V28) Heart failure, unspecified (CMS/HCC V24, CMS/HCC V28) [facility] 08/13/2024 Care Team Organization Name Specialty Phone Email Start Date End [facility] Chiki Jarquin Primary Care 11/16/2024 [facility] 09/10/2024 [facility] 09/08/2024 [facility] Chiki [facility] 08/18/2024 [facility] 08/16/2024 [facility] 08/13/2024
--- OUTSIDE RECORDS SUMMARY | 2025-02-02 10:01 | XMS_ITS | Encounter Summary ---
Author Organization [facility] Address [address] [place] [address] Care Team Providers Care Environmental Associate Name Role Phone JenniferZenia fletcheralberto HAMILTON Primary Care Provider + Pravin Davis MD Unavailable Encounter Details Date Type Department Care Team (Late st Contact Info) Description 09/08/2024 Scanned Document [facility] [address] [address] Primary Care, Scan Social History Tobacco Use Types Packs/Day Years Used Date Smoking Tobacco: Never Assessed Comments Unknown Sex and Gender Information Value Date Recorded Sex Assigned at Female 09/10/2024 2:32 PM EDT Legal Sex Female 8:27 AM EDT Gender Identity Female 09/10/2024 2:32 PM EDT Sexual Orientation Heterosexual (straight) 09/10 2:32 PM EDT documented as of this encounter Plan of Treatment Not on file documented as of this encounter Visit Diagnoses Not on filedocumented in this encounter Care Teams Environmental Associate Relationship Specialty Start Date End Date Chiki Jarquin DO [address] [place] [id number] PCP - General Internal Medicine 09/10/24 Pravin Davis MD [address] [place] [address] Primary Intake Man Cardiovascular Disease 11/18/24 documented as of this encounter
--- OUTSIDE RECORDS SUMMARY | 2025-02-02 10:01 | XMS_ITS | Clinical Summary ---
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 Lip and face Trazodone Other,Hives 12/15/2024 Medications amLODIPine (NORVASC) 10 mg tablet TAKE 1 TABLET (10 MG) BY MOUTH DAILY. FOR BLOOD PRESSURE (BP) 3 Active atorvastatin (LIPITOR) 20 mg tablet 1 (one) time each day in the evening. 3 Active omeprazole (PriLOSEC) [address] capsule Take by mouth 1 (one) time each day. 3 Active mupirocin (BACTROBAN) 2 % ointment APPLY 1 APPLICATION TOPICALLY 2 TIMES DAILY. USE A SMALL AMOUNT DIRECTED 3 Active metFORMIN (GLUCOPHAGE) 500 mg tablet Take 500 mg by mouth in the morning and at bedtime. 3 Active losartan (COZAAR) 50 mg tablet TAKE 1 TABLET (50 MG) BY MOUTH IN THE MORNING AND AT BEDTIME. 3 Active FreeStyle Lite Strips test strip USE 1 STRIP TO TEST TWICE A DAY (BEFORE MEALS) 3 Active diclofenac (VOLTAREN) 1 % topical gel APPLY 2 GRAMS TO THE AFFECTED AREA(S) BY TOPICAL ROUTE 4 TIMES PER DAY Active glimepiride (AMARYL) 2 mg tablet Take 2 mg by mouth. Active nitroglycerin (NITROSTAT) 0.4 mg SL tablet Take 0.4 mg by mouth. 3 Active metFORMIN (GLUCOPHAGE) 1,000 mg tablet Take 1 tablet by mouth in the morning and 1 tablet in the evening. Take with meals. 2 Active calcium carbonate/sherry min D3 (CALCIUM CARBONATE-SHERRY MIN D PO) Take by mouth. Activ e Accu-Chek Guide Glucose Meter misc USE TO CHECK BLOOD SUGAR SUBCUTANEOUSLY ONCE A DAY 5 Active Accu-Chek Softclix Lancets lancets 5 Active FreeStyle Lancets 28 gauge lancets USE TO CHECK BLOOD GLUOCSE ONCE A DAY 90 DAYS 5 Active atorvastatin (LIPITOR) 20 mg tablet Take 20 mg by mouth 1 (one) time each day. Active atorvastatin (LIPITOR) 20 mg tablet Take by mouth. Activ e losartan (COZAAR) 50 mg tablet Take 50 mg by mouth in the morning. Active losartan (COZAAR) 100 mg tablet Take 100 mg by mouth 1 (one) time each day. 5 Active losartan (COZAAR) 50 mg tablet Take by mouth. Activ e metFORMIN (GLUCOPHAGE) 1,000 mg tablet Take 1,000 mg by mouth in the morning and 1,000 mg in the evening. Take with meals. 5 Active omeprazole (PriLOSEC) [address] capsule Take 40 mg by mouth. Active omeprazole (PriLOSEC) [address] capsule Take 40 mg by mouth 1 (one) time each day. 5 Active amLODIPine (NORVASC) 10 mg tablet 1 (one) time each day at the same time. Active atorvastatin (LIPITOR) 20 mg tablet 1 (one) time each day at the same time. Active losartan (COZAAR) 50 mg tablet 1 (one) time each day at the same time. Active metFORMIN (GLUCOPHAGE) 500 mg tablet 1 tablet with a meal Orally Once a day in the morning; Duration: 90 days Active omeprazole (PriLOSEC) [address] capsule 1 (one) time each day at the same time. Active traZODone (DESYREL) 50 mg tablet 1 (one) time each day at the same time. Active atorvastatin (LIPITOR) 20 mg tablet 1 (one) time each day at the same time. Active losartan (COZAAR) 50 mg tablet 1 (one) time each day at the same time. Active metFORMIN (GLUCOPHAGE) 500 mg tablet 1 (one) time each day at the same time. Active omeprazole (PriLOSEC) [address] capsule 1 (one) time each day at the same time. Active Active Problems Problem Noted Date Diagnosed Date Class 1 obesity 12/21/2024 Type 2 diabetes mellitus wit h diabetic neuropathy, unspecified 12/15/2024 Overview (12/15/2024): Type 2 diabetes mellitus with diabetic neuropathy, without long-term current use of insulin Laceration of left index fin elisa without foreign body without damage to nail 07/31/2022 Overview (10/09/2022): Last Assessment & Plan: ACTIVE NOTED ON PE HEALING WELL NO SIGNS OF INFECTION OR TENDERNESS CONTINUE TO MONITOR Laceration of right lower extremity 07/31/2022 Overview (10/09/2022): Last Assessment & Plan: ACTIVE NOTED ON PE HAS ERYTHEMA START MUPIROCIN 2% CREAM BID CONTINUE TO MONITOR Polyneuropathy due to type 2 diabetes mellitus 0 05/28/2022 Overview (10/09/2022): Last Assessment & Plan: - Stable - Tereza current management - DIABETES MILLETUS (DM) foot exam done today - referral podiatry for DIABETES MILLETUS (DM) foot care - Tight BS controled - F/U in 6 M Plantar fasciitis 05/28/2022 Overview (10/09/2022): Last Assessment & Plan: ACTIVE CONTINUE TO TREAT OTC EXERCISES PRINTED AND HANDED TO PT IN CLINIC MONITOR Bilateral hand numbness 04/30/2022 Overview (10/09/2022): Last Assessment & Plan: Stable. Etiology is unclear at this time. Mostly onset at night while asleep. Review of patient's labs show patient's diabetes under good control. May be due to positional changes during sleep. Recommend the patient sleep with a supportive pillow. Referred to chiropractor for further management. F/u prn for new or worsening symptoms. Continue to monitor. Pain of right heel 04/30/2022 Overview (10/09/2022): Last Assessment & Plan: Active. Etiology is unclear at this time. May be due to heel spur vs plantar fasciitis. Recommend the patient ambulate with orthotics. F/u prn for new or worsening symptoms. Continue to monitor. Primary insomnia 03/11/2022 Overview (12/15/2024): Last Assessment & Plan: STABLE DECLINES MEDICATION SLEEP HYGIENE DISCUSSED. AVOID DRINKING CAFFEINE AND USE OF ELECTRONICS NIGHT. RECOMMEND HEALTHY DIET AND EXERCISE. MONITOR. Chronic insomnia Multiple thyroid nodules 10/30/2021 Overview (10/09/2022): Last Assessment & Plan: ACTIVE NOTED ON THYROID US 11/28/21 REFERRED TO IR FOR BX MONITOR Numbness in feet 10/30/2021 Overview (10/09/2022): Last Assessment & Plan: Active Recommended to f/u for self-changed medication report Will assess once changes in medications are clear Monitor Left sided sciatica 10/13/2021 Overview (10/09/2022): Last Assessment & Plan: Symptoms consistent w/ left sciatica Continue w/ ice over SI area Patient making appt with physical therapy soon She has no urine infection per urine culture She may continue tylenol Tizanidine prescribed for further pain relief Lumbar x-ray and SI x-rays ordered Monitor Back pain 10/03/2021 Overview (10/09/2022): Last Assessment & Plan: Stable Ibuprofen and tylenol OTC for pain and rest Referral to PT Return to clinic if sx worsen or do not improve FOLLOW UP with pcp for further treatment and evaluation if not improving. ER precautions given for worsening sx Bilateral cold feet 09/18/2021 Overview (10/09/2022): Last Assessment & Plan: Stable. Diminished pulses noted upon physical exam. US arterial duplex lower extremity to be obtained as ordered below. F/u pending imaging results. Continue to monitor. Edema of both feet 09/18/2021 Overview (12/15/2024): Last Assessment & Plan: Active Recommended to make an appointment to review self-made changes of medications Suspect she decrease dose of JOHNNIE inhibitor causing edema from medication side effect (Amlodipine) Will assess once changes in medications are clear Monitor Edema of both feet Bilateral swelling of feet and ankles 07/19/2021 Overview (10/09/2022): Last Assessment & Plan: Stable. Unlikely to be cardiac in nature. Discussed with the patient that blood vessels lose their elasticity with age, which can predispose her to experience swelling in her feet and ankles. Recommend patient keep her legs elevated as tolerated. Recommend the use of compression stockings. F/u prn for new or worsening symptoms. Continue to monitor. Hepatic steatosis 07/19/2021 Overview (10/09/2022): Last Assessment & Plan: Clinically stable. Revealed by imaging. Weight loss advised. F/u prn. Continue to monitor. UTI symptoms 05/24/2021 Overview (10/09/2022): Last Assessment & Plan: Active. Likely viral. Currently experiencing symptoms of dry cough, congestion, wheezing. Recommend patient drink hot liquids like teas or soups. Continue taking diabetic robitussin to help with cough. F/u prn if symptoms persist or worsen. Continue to monitor. Last Assessment & Plan: Active. Given symptoms of lower abdominal pain and burning with urination, suspect likely to be UTI. UA in clinic returned negative. Urine culture sent to pathology. Patient is to begin taking Keflex 250 mg QID x 5 days as prescribed below. F/u if symptoms persist despite completion of complete course of antibiotics. Monitor. Mixed hyperlipidemia 05/17/2021 Overview (12/15/2024): Mixed hyperlipidemia Fear of flying 04/24/2021 Overview (10/09/2022): Last Assessment & Plan: Active Ativan 0.5 mg prescribed CURES reviewed Monitor Uncontrolled type 2 diabetes mellitus with hyper glycemia 04/24/2021 Overview (10/09/2022): Last Assessment & Plan: Continue with Metformin 1000 mg po twice a day Patient to increase physician activity to help reduce A1C below 7 Diet instructions provided ERICK (obstructive sleep apnea) 02/27/2021 Overview (10/09/2022): Last Assessment & Plan: Referral sent for pulmonology to get sleep study Will reassess after results of sleep study are obtained Will consider further work up upon completion of sleep study Allergic rhinitis due to animal (cat) (dog) hair and dander 08/24/2020 Overview (10/09/2022): Last Assessment & Plan: Active Start the use of Montelukast 10 mg q hs Monitor MDD (major depressive disorder), recurrent episo de, mild 08/24/2020 Overview (10/09/2022): Last Assessment & Plan: . .No flowsheet data found. . FM PHQ9 score 05/30/2022 05/30/2020 PHQ9 Patient Summary Score (calculated) 1 5 -Stable -No HI, OR SI -continue current management -Following recommendations were advised : -Follow-up with psychotherapy -Diary of achievement -Diary of gratefulness -Cognitive triad discussed - Advised Pt to Exercise regularly by walking 30 mint x 5 days/ week and engage in back yard activities -Advised Pt to make check list about concerning things and try to find solutions and action to come over them --Follow-up NEEDED Right upper quadrant abdominal pain 06/15/2020 Overview (10/09/2022): Last Assessment & Plan: Active US abdomen ordered R/o gallstones Advised patient to adhere to healthy lifestyle Monitor F/u pending results Last Assessment & Plan: Active Based off clinical presentation and upon review of EGD from 08/2020, suspect epigastric pain likely to be due to GERD. Directed the patient to continue taking Omeprazole in the morning and TUMS in the evening. Advised patient to avoid spicy, acidic, tomato-based, or fatty foods. Suggested the patient limit intake of coffee, tea, alcohol, and soda beverages. Avoid gorging during mealtime and bedtime snacks. Instructed patient to sleep at a whole body incline and to avoid sleeping with multiple pillows. Referred to gastroenterology and directed the patient to follow-up with GI if symptoms persist or worsen. F/u prn for new or worsening symptoms. Monitor. Thyroid nodule 06/15/2020 Overview (10/09/2022): Atrophic right lobe. Enlarged left lobe secondary to a large nodule. The overall thyroid parenchyma demonstrates diffusely heterogeneous echotexture with normal vascularity. This is unchanged from prior study and suggestive of the sequela of thyroiditis. 2. 5.7 x 4.9 x 5.6 cm solid nodule identified in the left lower lobe. This is labeled 3. This nodule has increased in size from prior study. However, this nodule was previously biopsied in 2017 and found to be benign. Continued clinical monitoring is recommended. ACR TI RADS category 5. 3. 1.3 x 1.0 x 1.0 cm nodule in the left mid lobe. This is labeled 1. This nodule has remained stable from prior imaging. This nodule is indeterminate due to calcification. Continued ultrasound surveillance in 1 year is recommended. ACR TI RADS category 4. 4. 1.2 x 0.8 x 0.8 cm nodule identified in the left mid lobe. This is labeled 2. This nodule has remained stable from prior imaging. This nodule is indeterminate due to calcifications. Continued ultrasound surveillance in 1 year is recommended. ACR TI RADS category 4. Last Assessment & Plan: - Stable - TSH unremarkable - Us noted above - referral endocrine Vitamin D deficiency 06/15/2020 Overview (10/09/2022): Last Assessment & Plan: STABLE LABS REVIEWED: Lab Results Component Value Date VDT 42 10/19/2020 RECOMMEND OTC VITAMIN D3 5,000 I.U. DAILY. INCREASE INTAKE OF FATTY FISH OR FOODS FORTIFIED WITH VITAMIN D. LABS ORDERED MONITOR Arthralgia 05/30/2020 Overview (10/09/2022): Last Assessment & Plan: Stable Continue the use of Votaren topical Medication refillled Anxiety 11/18/2019 Calcification of aorta 11/18/2019 Overview (12/15/2024): XR Chest 12/14/18 XR Chest 12/14/18 Calcified granuloma of lung 11/18/2019 Overview (10/09/2022): CT Angio Chest 11/12/18 Morbid obesity 11/18/2019 Overview (10/09/2022): W/ COMORBIDITY HLD, DM II AND HTN Last Assessment & Plan: .Active BMI 35.06 Advised increased aerobic exercise; recommended 30 min 5x a week Discussed goal of increasing daily step count Advised keeping food log, calorie counting; advised meal planning Advised regular, healthy diet and benefits of keto diet, intermittent fasting Seasonal allergies 11/18/2019 Osteopenia 04/12/2019 Overview (12/15/2024): DEXA scan on 12/15/2018 Osteopenia of multiple sites Nontoxic multinodular goiter 12/04/2018 Vocal fold paresis, left 12/04/2018 Dilatation of pulmonic artery 11/25/2018 Chest pain 11/14/2018 Overview (10/09/2022): Last Assessment & Plan: STABLE REVIEWED ED NOTES 06/16/22 ADVISED TO TAKE NITROGLYCERIN PRESCRIBED PRN FOR CHEST PAIN ER PRECAUTIONS GIVEN MONITOR Hypertension associated with diabetes 11/14/2018 Overview (10/09/2022): Last Assessment & Plan: CONTROLLED. REVIEWED ED VISIT FROM 06/16/22 BLOOD PRESSURE TODAY: WNL CONTINUE TAKING ANTIHYPERTENSIVES PRESCRIBED. RECOMMENDED PATIENT CHECK HOME BLOOD PRESSURE READINGS REGULARLY. UTILIZE EXERCISE AND A HEALTHY DIET. CONTINUE TO FOLLOW UP FOR EVALUATION OF DISEASE PROGRESSION. LABS ORDERED MONITOR Essential hypertension 11/14/2018 Overview (12/15/2024): Last Assessment & Plan: Stable Continue current management Monitor BP at home, and BP diary If avg systolic BP >140, return in 1 week for reassessment Recommend low-salt < 3g /day DASH diet Exercise 30 mint/day/5 days /week Limit ETOH to less than 2 drinks /day for men and 1 drink /day for women Weigh loss for goal is BMI of 25 ED precautions given Essential hypertension Gastroesophageal reflux disease 11/14/2018 Overview (12/15/2024): Last Assessment & Plan: hida scan reviewed with patient, normal findings Will consider CT scan to assess hiatal hernia in the future after sleep study returns normal Continue ppi Gastroesophageal reflux disease without esophagitis Thyroid nodule 11/14/2018 Overview (12/15/2024): Atrophic right lobe. Enlarged left lobe secondary to a large nodule. The overall thyroid parenchyma demonstrates diffusely heterogeneous echotexture with normal vascularity. This is unchanged from prior study and suggestive of the sequela of thyroiditis. 2. 5.7 x 4.9 x 5.6 cm solid nodule identified in the left lower lobe. This is labeled 3. This nodule has increased in size from prior study. However, this nodule was previously biopsied in 2017 and found to be benign. Continued clinical monitoring is recommended. ACR TI RADS category 5. 3. 1.3 x 1.0 x 1.0 cm nodule in the left mid lobe. This is labeled 1. This nodule has remained stable from prior imaging. This nodule is indeterminate due to calcification. Continued ultrasound surveillance in 1 year is recommended. ACR TI RADS category 4. 4. 1.2 x 0.8 x 0.8 cm nodule identified in the left mid lobe. This is labeled 2. This nodule has remained stable from prior imaging. This nodule is indeterminate due to calcifications. Continued ultrasound surveillance in 1 year is recommended. ACR TI RADS category 4. Type 2 diabetes mellitus with other specified co mplication 11/14/2018 Overview (12/15/2024): Last Assessment & Plan: . . Lab Results Component Value Date A1C 7.0 (H) 04/08/2022 A1C 7.5 (H) 11/01/2021 Stable Continue current management Recheck HgbA1c, lipids labs in 3 months Foot exam referral to podiatry Rental exam UTD Pneumonia Decline Shingles Decline Self-Management: -Discussed appropriate glucose monitoring and medication adherence -Discussed adjustment?s/titration of diabetic medication to meet individualized A1c goal -Counseled on hypoglycemic precautions Lifestyle: -Moderate weight loss (7% body weight) and regular physical activity (150 min/week) can reduce the risk of diabetes complications and improve glycemic control. -Reduce intake of trans fat/saturated fat (lowers LDL cholesterol and increases HDL cholesterol) -Discussed carbohydrate consistent diet -Lifestyle modification discussed F/u in 3M Last Assessment & Plan: STABLE. LABS REVIEWED: Lab Results Component Value Date A1C 7.2 (H) 06/24/2022 A1C 7.0 (H) 04/08/2022 DIABETIC DYSLIPIDEMIA IS TREATED WITH STATIN. D/C GLIMEPIRIDE 2MG DUE TO HYPOGLYCEMIA EPISODES. PT IS TAKING METFORMIN 500MG BID INSTEAD OF 1000MG BID PRESCRIBED. CONTINUE WITH METFORMIN 500MG BID DISCUSSED WITH THE PATIENT THE IMPORTANCE OF UTILIZING A LOW CARB/SUGAR DIET. DIRECTED TO EXERCISE TOLERATED. MONITOR. HAS F/U ON 10/02/22 FOR LAB REVIEW Type 2 diabetes mellitus with other specified complication, without long-term current use of insulin Type 2 diabetes mellitus wit h hyperglycemia, without long-term current use of insulin 11/14/2018 Resolved Problems Problem Noted Date Diagnosed Date Resolved Date Screening mammogram for breast cancer 06/15/2020 10/09/2022 Overview (10/09/2022): Last Assessment & Plan: Active Mammogram ordered F/u pending results Monitor Encounters Date Type Department Care Team Description 01/11/2025 3:00 PM PDT Office Visit Dentists [address] [phone] Dexter Quintero DDS 01/05/2025 10:30 AM PDT Office Visit Dentists [address] [address] [place] [phone] Dexter Quintero DDS 12/21/2024 2:00 PM PDT Office Visit Dentists [address] [phone] Dexter Quintero DDS 12/16/2024 1:15 PM PDT Office Visit Dentists [address] [address] [place] [phone] Michelle Graves RDH 12/15/2024 10:00 AM PDT Office Visit Dentists of [address] [phone] Dexter Quintero DDS from Last 3 Months Social History Tobacco Use Types Packs/Day Years Used Date Smoking Tobacco: Never Assessed Comments Unknown Sex and Gender Information Value Date Recorded Sex Assigned at Not on file Legal Sex Female 11:18 AM PDT Gender Identity Not on file Sexual Orientation Not on file Last Filed Vital Signs Vital Sign Reading Time Taken Comments Blood Pressure 148/96 10/09/2022 11:37 AM PDT Pulse 81 10/09/2022 11:37 AM PDT Temperature - - Respiratory Rate - - Oxygen Saturation - - Inhaled Oxygen Concentration - - Weight - - Height - - Body Mass Index - - Plan of Treatment Upcoming Encounters Date Type Department Care Team ([facility] Contact Info) Description 03/22/2025 10:30 AM PST Office Visit Dentists of [address] [phone] Michelle Graves, [facility] [address] [facility] [address] [place] [address] Health Maintenance Due Date Last Done Comments Periodontal Maintenance 1950 Dental X-Ray: Bitewings 04/11/2023 10/09/2022 OralFitnessCheck Screening 06/17/2025 12/15/2024 Dental Oral Exam 06/18/2025 12/15/2024, 10/09/2022 Scaling and Root Planing 12/30/2026 025, 12/16/2024, 12/16/2024, Additional history exists Dental CBCT 12/16/2027 12/15/2024 Dental X-Ray: Full Mouth 12/17/2027 12/15/2024, 11/2022 Dental X-Ray: Panoramic 12/17/2027 12/15/2024, 10/09 Procedures Procedure Name Priority Date/Time Associated Diagnosis Comments RE-EVALUATION POST-OPERATIVE OFFICE VISIT Routine 01/11/2025 3:00 PM PDT CEMENT BRIDGE Routine 01/05/2025 10:30 AM PDT CEMENT BRIDGE Routine 01/05/2025 10:30 AM PDT 4 CORE BUILDUP, INCLUDING ANY PINS WHEN REQUIRED Routine 12/21/2024 2:00 PM PDT 6 CORE BUILDUP, INCLUDING ANY PINS WHEN REQUIRED Routine 12/21/2024 2:00 PM PDT 6 RETAINER CROWN - PFM - ANT Routine 12/21/2024 2:00 PM PDT 4 RETAINER CROWN - PFM - POST Routine 12/21/2024 2:00 PM PDT 5 PONTIC - PFM - POST Routine 12/21/2024 2:00 PM PDT TOPICAL APPLICATION OF FLUORIDE VARNISH Routine 12/16/2024 1:15 PM PDT ORAL HYGIENE INSTRUCTIONS Routine 12/16/2024 1:15 PM PDT LR ANTIBACT IRR/QUAD Routine 12/16/2024 1:15 PM PDT LR PERIODONTAL SCALING AND ROOT PLANING - FOUR OR MORE TEETH PER QUADRANT Routine 12/16/2024 1:15 PM PDT LR PARAS DECON/QD Routine 12/16/2024 1:15 PM PDT LL PARAS DECON/QD Routine 12/16/2024 1:15 PM PDT LL ANTIBACT IRR/QUAD Routine 12/16/2024 1:15 PM PDT LL PERIODONTAL SCALING AND ROOT PLANING - FOUR OR MORE TEETH PER QUADRANT Routine 12/16/2024 1:15 PM PDT UL PARAS DECON/QD Routine 12/16/2024 1:15 PM PDT UL ANTIBACT IRR/QUAD Routine 12/16/2024 1:15 PM PDT UL PERIODONTAL SCALING AND ROOT PLANING - FOUR OR MORE TEETH PER QUADRANT Routine 12/16/2024 1:15 PM PDT UR PARAS DECON/QD Routine 12/16/2024 1:15 PM PDT UR ANTIBACT IRR/QUAD Routine 12/16/2024 1:15 PM PDT UR PERIODONTAL SCALING AND ROOT PLANING - FOUR OR MORE TEETH PER QUADRANT Routine 12/16/2024 1:15 PM PDT NEW PATIENT ORALFITNESSCHECK INITIAL SCREEN Routine 12/15/2024 10:00 AM PDT NEW PATIENT PHOTO INTRA ORAL Routine 12/15/2024 10:00 AM PDT NEW PATIENT PHOTO INTRA ORAL Routine 12/15/2024 10:00 AM PDT NEW PATIENT PHOTO INTRA ORAL Routine 12/15/2024 10:00 AM PDT NEW PATIENT PHOTO INTRA ORAL Routine 12/15/2024 10:00 AM PDT NEW PATIENT INTRAORAL - PERIAPICAL EACH ADDITIONAL RADIOGRAPHIC IMAGE Routine 12/15/2024 10:00 AM PDT NEW PATIENT INTRAORAL - PERIAPICAL EACH ADDITIONAL RADIOGRAPHIC IMAGE Routine 12/15/2024 10:00 AM PDT NEW PATIENT INTRAORAL - PERIAPICAL EACH ADDITIONAL RADIOGRAPHIC IMAGE Routine 12/15/2024 10:00 AM PDT NEW PATIENT INTRAORAL - PERIAPICAL EACH ADDITIONAL RADIOGRAPHIC IMAGE Routine 12/15/2024 10:00 AM PDT NEW PATIENT INTRAORAL - PERIAPICAL EACH ADDITIONAL RADIOGRAPHIC IMAGE Routine 12/15/2024 10:00 AM PDT NEW PATIENT SPECIAL EXAM - ADULT Routine 12/15/2024 10:00 AM PDT HAT STEAMER FOUR BITEWING XRAYS Routine 10:00 AM PDT NEW PATIENT INTRAORAL - PERIAPICAL FIRST RADIOGRAPHIC IMAGE Routine 12/15/2024 10:00 AM PDT HAT STEAMER CBCT Routine 12/15/2024 10:00 AM PDT ORAL FITNESS AMMP-8 DOCKED DEVICE Routine 12/15/2024 9:28 AM PDT PANORAMIC RADIOGRAPHIC IMAGE Routine 10/09/2022 11:30 AM PDT INTRAORAL - COMPREHENSIVE SERIES OF RADIOGRAPHIC IMAGES Routine 10/09/2022 11:30 AM PDT from Last 3 Months or Most Recently Relevant to Health Maintenance Results * (ABNORMAL) POCT Oral Fitness AMMP-8 docked device (12/15/2024 9:28 AM PDT) Active matrix metalloprotein ase-8 level 59(RPD) ng/ml DENTOGNOSTICS Saliva Salivary gland structure / Unknown Dexter Quintero DDS PDS POCT [facility] Prudence l Result DENTOGNOSTICS from Last 3 Months Insurance [facility]
--- OUTSIDE RECORDS SUMMARY | 2025-02-02 10:01 | XMS_ITS | Clinical Summary ---
Author Organization [facility] Address [address] [place] [address] Phone Care Team Providers Care Higher Education Administrator Name Role Phone Chiki Jarquin DO Primary Care Provider [phone] Social History Tobacco Use Types Packs/Day Years Used Date Smoking Tobacco: Never Assessed Comments Unknown Sex and Gender Information Value Date Recorded Sex Assigned at Not on file Legal Sex Female 2:48 PM EDT Gender Identity Not on file Sexual Orientation Not on file Plan of Treatment Health Maintenance Due Date Last Done Comments Breast Cancer Screening 1950 DTaP,Tdap,and Td Vaccines (1 - Tdap) 08/24/1970 Pneumococcal Vaccine: 50+ Ye ars (1 of 1 - PCV) 08/24/2001 Zoster Vaccines (1 of 2) 08/24/2001 RSV Immunization Adult Patie nts (1 - Risk 60-74 years 1-dose series) 2011 Depression Screening 05/05/2024 Colorectal Cancer Screening: Colonoscopy 08/13/2024 Falls Risk Assessment 08/13/2024 Hepatitis C Screening 08/13/2024 Hypertension/CHF/CAD Annual BMP Blood Test 08/13/2024 Medicare Annual Wellness Visit 08/13/2024 Osteoporosis Screening (Bone Density Screening) 08/13/2024 Social Influencers of Health Screening 08/13/2024 COVID-19 Vaccine ( - 2023-2 5 season) 2025 Influenza Vaccine (#1) 2025 HIB Vaccines Aged Out No longer eligi ble based on patient's age to complete this topic HPV Vaccines Aged Out No longer eligi ble based on patient's age to complete this topic Hepatitis A Vaccines Aged Out No long er eligible based on patient's age to complete this topic Hepatitis B Vaccines Aged Out No long er eligible based on patient's age to complete this topic IPV Vaccines Aged Out No longer eligi ble based on patient's age to complete this topic MMR Vaccines Aged Out No longer eligi ble based on patient's age to complete this topic Meningococcal ACWY Vaccine Aged Out N o longer eligible based on patient's age to complete this topic Meningococcal B Vaccine Aged Out No l onger eligible based on patient's age to complete this topic RSV Immunization Patients Un juju 20 months Aged Out No longer eligible b ased on patient's age to complete this topic Varicella Vaccines Aged Out No longer eligible based on patient's age to complete this topic Insurance [employer] MEDICARE Care Teams Higher Education Administrator Relationship Specialty Start Date End Date Chiki Jarquin DO [address] [place] [id number] PCP - General Internal Medicine 10/06/24
--- OUTSIDE RECORDS SUMMARY | 2025-02-02 10:01 | XMS_ITS | Encounter Summary ---
Author Organization [facility] Health Address [address] [place] [address] Care Team Providers Care Train Station Agent Name Role Phone Unavailable Primary Care Provider Unavailabl e Prior Encounters Date Type Department Care Team Description 01/11/2025 3:00 PM PDT Office Visit Dentists [address] [phone] Dexter Quintero DDS 01/05/2025 10:30 AM PDT Office Visit Dentists [address] [address] Dexter Quintero DDS 12/21/2024 2:00 PM PDT Office Visit Dentists [address] [address] Dexter Quintero DDS 12/16/2024 1:15 PM PDT Office Visit Dentists [address] [phone] Michelle Graves [facility] 12/15/2024 10:00 AM PDT Office Visit Dentists [address] [address] Dexter Quintero DDS 10/09/2022 11:30 AM PDT Office Visit [facility] [address] [facility] [place] [phone] Ana Maria Pennington DMD Last Filed Vital Signs Vital Sign Reading Time Taken Comments Blood Pressure 148/96 10/09/2022 11:37 AM PDT Pulse 81 10/09/2022 11:37 AM PDT Temperature - - Respiratory Rate - - Oxygen Saturation - - Inhaled Oxygen Concentration - - Weight - - Height - - Body Mass Index - - Plan of Treatment Upcoming Encounters Date Type Department Care Team ([facility] st Contact Info) Description 03/22/2025 10:30 AM PST Office Visit [facility] [place] [address] [place] [phone] Michelle Graves, [facility] [address] [place] [address] Procedures Procedure Name Priority Date/Time Associated Diagnosis [...] - ADULT Routine 12/15/2024 10:00 AM PDT SPECIAL EFFECTS DESIGNER FOUR BITEWING XRAYS Routine 10:00 AM PDT NEW PATIENT INTRAORAL - PERIAPICAL FIRST RADIOGRAPHIC IMAGE Routine 12/15/2024 10:00 AM PDT SPECIAL EFFECTS DESIGNER CBCT Routine 12/15/2024 10:00 AM PDT ORAL FITNESS AMMP-8 DOCKED DEVICE Routine 12/15/2024 9:28 AM PDT INTRAORAL PHOTO Routine 10/09/2022 11:30 AM PDT INTRAORAL PHOTO Routine 10/09/2022 11:30 AM PDT INTRAORAL PHOTO Routine 10/09/2022 11:30 AM PDT INTRAORAL PHOTO Routine 10/09/2022 11:30 AM PDT PANORAMIC RADIOGRAPHIC IMAGE Routine 10/09/2022 11:30 AM PDT INTRAORAL - COMPREHENSIVE SERIES OF RADIOGRAPHIC IMAGES Routine 10/09/2022 11:30 AM PDT COMPREHENSIVE ORAL EVALUATION - NEW OR ESTABLISHED PATIENT Routine 10/09/2022 11:30 AM PDT 14 ABUTMENT Routine 10/09/2022 12:00 AM PDT 13 ABUTMENT Routine 10/09/2022 12:00 AM PDT 11 ABUTMENT Routine 10/09/2022 12:00 AM PDT 6 ABUTMENT Routine 10/09/2022 12:00 AM PDT 4 ABUTMENT Routine 10/09/2022 12:00 AM PDT 12 PONTIC Routine 10/09/2022 12:00 AM PDT 5 PONTIC Routine 10/09/2022 12:00 AM PDT 17 O AMALGAM FILLING Routine 10/09/2022 12:00 AM PDT 32 O AMALGAM FILLING Routine 10/09/2022 12:00 AM PDT 2 O AMALGAM FILLING Routine 10/09/2022 1 2:00 AM PDT 13 ROOT CANAL Routine 10/09/2022 12:00 AM PDT 6 ROOT CANAL Routine 10/09/2022 12:00 AM PDT 4 ROOT CANAL Routine 10/09/2022 12:00 AM PDT Results * (ABNORMAL) POCT Oral Fitness AMMP-8 docked device (12/15/2024 9:28 AM PDT) Active matrix metalloprotein ase-8 level 59(RPD) ng/ml [facility] Saliva Salivary gland structure / Unknown us Dexter Quintero DDS PDS POCT [facility] Prudence l Result DENTOGNOSTICS Visit Diagnoses Not on file Insurance [facility] HMO
== END 2025-02-02 10:06 | disposition home or self-care (01) ==
LOC: HO.HMCFMS 09:14
PROVIDERS: PCP Student in an Organized Health Care Education/Training Program; Visit Provider Student in an Organized Health Care Education/Training Program
DX: E11.40 Type 2 diabetes mellitus with diabetic neuropathy, unspecified (principal); I10 Essential (primary) hypertension; E78.5 Hyperlipidemia, unspecified; K21.9 Gastro-esophageal reflux disease without esophagitis

== ENCOUNTER 2025-02-16 10:47 | Outpatient (REF) | payer MEDICARE, SELFPAY ==
[2025-02-16 18:28] LABS: Appearance Urine Clear; Glucose Urine UA >=1000 mg/dL (Negative); PH 5.5 (5.0-9.0); Specific Gravity - Urine 1.015 (1.005-1.025); UMIC TRIGGER UACC YES
[2025-02-16 18:59] LABS: Microalbum/Creatinine Ratio Ur 67.2 ug/mg cr (<30)
== END 2025-02-16 10:48 | disposition home or self-care (01) ==
LOC: HO.HKASLDS 10:47
PROVIDERS: PCP Student in an Organized Health Care Education/Training Program; Visit Provider Student in an Organized Health Care Education/Training Program
DX: E11.9 Type 2 diabetes mellitus without complications (principal); E78.5 Hyperlipidemia, unspecified; I10 Essential (primary) hypertension; Z76.89 Persons encountering health services in other specified circumstances
CPT/HCPCS: 81001; 82043; 82570

== ENCOUNTER 2025-02-16 10:47 | Outpatient (AMB) | payer OTHER, SELFPAY ==
--- OUTSIDE RECORDS SUMMARY | 2023-10-20 05:15 | XMS_ITS ---
Author Organization [employer] Address [address] [place] [address] Care Team Providers Care Industrial Health And Safety Professor Name Role Phone Wilfrido SUNG, Niraj Primary Care Provider [phone] Edson Garces PA-C [phone] REASON FOR VISIT 3m fasting labs Encounters Encounter Location Date Provider Diagnosis [facility] [address] [place] [id number] 10/20/2023 Edson Garces Plan Of Treatment No Information Progress Notes * Mimi ALBRECHTDOB:1950 (74 yo F)Acc No.[id number]:10/20/2023 UNLOCKED PROGRESS NOTE Patient: Mimi Gleason Provider: Solange Garces PA-C :1950 A ge:73 Y S ex:Female Date:10/20/2023 Address:[facility] [place] [facility] [id number] Pcp:Niraj Anna MD Subjective: * Chief Complaints: * 3 m fasting labs Objective: Past Vitals:* 07/21/2023 BP:sittin/59mm Hg, RR:1 6/min, Pulse:sittin/min, Temp:oral:97.3F, Ht:56in, Wt:148.2lbs, BMI:33.22Index, Oxygen Sat:Room Air:98%, Pain Scale:01-10 * Electronic signature of Vlad Garces PA-C, PA-C on 02/16/2025 at 12:02 PM CDT Sign off status: Pending * Provider: Solange Garces PA-C Date: 0 10/20/2023 Generated for Anjali madison/Lv/Isabelle on: 1 12:02 PM CDT
--- OUTSIDE RECORDS SUMMARY | 2023-12-04 09:15 | XMS_ITS ---
Author Organization [facility] Billing Info Address [address] [place], [place] [address] Care Team Providers Care Carpet Inspector Name Role Phone Unruly Kenney Primary Care Provider Unavailabl e UNRULY KENNEY Unavailable [phone] DOMINIC SHANKS Unavailable [phone] Allergies Allergen (clinical drug ingredient) Drug/Non Drug Allergy documented on EMR Reaction Allergy Type Onset Date Status empagliflozin Jardiance nausea/vomiting Drug Allergy Active trazodone Trazodone intolerance Drug Allergy Activ e Reason For Referral Reason eval and treat Diagnosis 1 Left lumbar radiculo chuy (M54.16) Referral Organization [id number] Referring Provider First Name DOMINIC Referring Provider Last Name DIMITRIS Referring Provider Speciality Nurse Prac titioner Referred Provider [place] Referred Provider Specialty Physical The rapy General Notes KRISTI JACOBS 01:23:31 PM >eval and treat [place] Clinical Notes KRISTI JACOBS 02:47:05 PM >left message for patient to call and schedule an appointment with specialist, KRISTI VICENTE 12/11/2023 10:27:43 AM >rerouted per patientJULES MELISSA 12/11/2023 10:29:43 AM >left message for patient to call and schedule an appointment with specialist Referral Priority Routine REASON FOR VISIT Lt glut / leg pain x 3/d w/ radiculapathy [id number] Medications Medication SIG (Take, Route, Frequency, Duration) [...] 12/04/2023 Encounters Encounter Location Date Provider Diagnosis [id number] [address] [address] [place], [place] [id number] 12/04/2023 DOMINIC SHANKS Left lumbar radiculopathy M54.16 [...] 12/04/2023, eval and treat, Spine and Rehab [place] Next Appt Details Follow Up: prn, Reason: Progress Notes * Mimi ALBRECHTDOB:1950 (73 yo F)Acc No.[id number]:12/04/2023 PROGRESS NOTE Patient: Mimi BENTLEY Provider: MOSHE Pace :1950 A ge:73 Y S ex:Female Date:12/04/2023 C #:[id number] Address:[address] [place] [address], [facility] Pcp:Unruly Kenney Patient's Default Facility:[address] [place] [address] [facility] Subjective: * Chief Complaints: * L t glut / leg pain x 3/d w/ radiculapathy [id number] * HPI: F irst Point of Contact [...] or a close contact traveled outside the [facility] and you are now [...] pain. Pt has a pending trip to [place]. * Medical History: * Surgical History: N [...] ast Orders: L ab:Comp. Metabolic Panel (14) ([id number]) (Order Date - 10/02/2023) (Collection Date & [...] 12/04/2023 Generated for Anjali madison/Lv/Isabelle on: 1 12:01 PM CDT History and Physical Notes * [...] pain. Pt has a pending trip to [place]. First Point of Contact Screening Do any [...]
--- OUTSIDE RECORDS SUMMARY | 2023-12-08 05:49 | XMS_ITS ---
Author Organization [facility] Billing Info Address [address] [place], [place] [address] Care Team Providers Care Candy Wrapping Machine Operator Name Role Phone Sinan Kenney Primary Care Provider SINAN Olivas Unavailable [phone] REASON FOR VISIT New Referral Encounters Encounter Location Date Provider [facility] [address] [address] [place], [place] [address] 12/08/2023 SINAN KENNEY Plan Of Treatment No Information Progress Notes * Mimi ALBRECHTDOB:1950 (73 yo F)Acc No.[id number]:12/08/2023 Patient: Mimi BENTLEY :1950 A ge:73 Y S ex:Female Address:[address], [place], [address] * true * Date: Generated for Printi ng/Faxing/eTransmitting on: 1 12:02 PM CDT
--- OUTSIDE RECORDS SUMMARY | 2023-12-18 05:03 | XMS_ITS ---
Author Organization [facility] Billing Info Address [address] [place], [place] [address] Care Team Providers Care Lap Machine Tender Name Role Phone Unruly Kenney Primary Care Provider UNRULY Olivas [facility] [phone] REASON FOR VISIT Refill Medications Medication SIG (Take, Route, Frequency, Duration) Notes Start Date End Date Status Amlodipine Besylate 10 MG 1 tablet Orally Once a day Active Encounters Encounter Location Date Provider Diagnosis 439449[facility] [address] [address] [place], [place] [address] 12/18/2023 UNRULY KENNEY Essential hypertensi on I10 [...] Notes * AMBROCIO, MimiDOB:1950 (73 yo F)Acc No.[id number]:12/18/2023 Patient: Mimi BENTLEY :1950 A ge:73 Y S ex:Female Address:[facility] [address], [place], [address] * Refills Refill Amlodipine Besylate Tablet, 10 MG, Orally, 1 tablet, Once a day Stop Telmisartan-HCTZ Tablet, 80-12.5 MG, Orally, 1 tablet, Once a day in AM for high blood pressure * true * Date: Generated for Anjali madison/Lv/Isabelle on: 1 12:02 PM CDT
--- OUTSIDE RECORDS SUMMARY | 2024-01-14 10:00 | XMS_ITS ---
Author Organization [facility] Billing Info Address [address] [place], [place] [address] Care Team Providers Care Piece Hand Name Role Phone Sinan Kenney Primary Care Provider SINAN Olivas [facility] [phone] Allergies Allergen (clinical drug ingredient) Drug/Non Drug [...] smoker Encounters Encounter Location Date Provider Diagnosis [id number] [facility] [address] [address] [place], [place] [phone] 01/14/2024 SINAN KENNEY Assessments Encounter Date Diagnosis (ICD Code) Assessment Notes Treatment Notes Treatment Clinical Notes Section Notes 01/14/2024 Other A Healthy Lifestyle: Care Instructions material was published Plan Of Treatment Treatment Notes Assessment Notes Other A Healthy Lifestyle: Care Instructions material was published Progress Notes * Mimi ALBRECHTDOB:1950 (74 yo F)Acc No.[id number]:01/14/2024 PROGRESS NOTE Patient: Mimi BENTLEY Provider: Tamar KENNEY MD :1950 A ge:73 Y S ex:Female Date:01/14/2024 C HN#:[id number] Address:[facility] [address], [place] [phone] Pcp:Sinan Kenney Patient's Default Facility:[address] [place] [address] MED ASS[facility] Subjective: * Chief Complaints: * [...] MD Date: 0 01/14/2024 Generated for Anjali madison/Lv/Isabelle on: 1 12:02 PM CDT History and Physical Notes * [...]
--- OUTSIDE RECORDS SUMMARY | 2024-02-11 03:26 | XMS_ITS ---
Author Organization [facility] Physician Servic es Billing Info Address [address] [place], [place] [address] Care Team Providers Care Network Operations Specialist Name Role Phone Unruly Kenney Primary Care Provider UnavailUNRULY Vanegas Unavailable [phone] REASON FOR VISIT reschedule Encounters Encounter Location Date Provider Diagnosis [id number] [facility] [address] [address] [place], [place] [phone] 02/11/2024 UNRULY KENNEY Plan Of Treatment No Information Progress Notes * Mimi ALBRECHTDOB:1950 (73 yo F)Acc No.[id number]:02/11/2024 Patient: Mimi BENTLEY :1950 A ge:73 Y S ex:Female Address:[facility] [address], [place], [address] * true * Date: Generated for Printi ng/Faxing/eTransmitting on: 1 12:02 PM CDT
--- NOTE | 2025-02-16 10:49 | MHC.PC.OV ---
Vital Signs 02/16/25 10:50 Height 4 ft 8.69 in BP 150/68 H Blood Pressure Location Lt brachial Position Sitting Respiration 16 Pulse 84 Pulse Source Pulse Oximeter Temp 97.4 F Temp Source Oral Pulse Oximetry (%) 100 Oxygen Delivery Method Room Air Intake Visit Reasons: 2 wk f/u Heavy Cleaner Required: No Accompanied by: Self / Same As Patient Allergies empagliflozin (From Jardiance) Allergy (Mild, Verified 02/02/25 09:31) swollen lips gabapentin Allergy (Mild, Verified 02/02/25 09:31) swollen lips Tobacco use date assessed: 02/02/25 Fall risk assessment: No Falls in past year Last assessed Fall Risk: 02/02/25 Dental Screening Dental Screen Date: 02/02/25 Did you have a dental visit in the last 12 months?: Yes Did you have a dental problem in the last 6 months where you did not have access to dental care?: No Was dental information given to patient?: Patient has dentist HPI HPI Comments History of Present Illness Details Consent Patient was informed and verbally consented to the use of an ambient scribe for clinic note documentation during this visit. History of Present Illness The patient is a 74-year-old female presenting with management of Type 2 Diabetes Mellitus, Hyperlipidemia, and Hypertension. Type 2 Diabetes Mellitus: - The patient's hemoglobin A1c has increased to 7.6, indicating poor glycemic control. - She is currently taking metformin 1000 mg twice daily. - The patient plans to attempt dietary control for three months before considering additional medication. Hyperlipidemia: - The patient's LDL cholesterol is elevated at 137 mg/dL, total cholesterol at 221 mg/dL, and triglycerides at 197 mg/dL. - She is currently prescribed atorvastatin 20 mg but has not been taking it regularly. - discussed medication compliance and she will start taking her medication regularly Hypertension: - The patient has been experiencing elevated blood pressure readings, with recent measurements of 154 and 158 mmHg. - She is currently taking losartan 50 mg twice daily. - A home blood pressure monitoring plan has been initiated to assess the need for medication adjustment. Review of Systems 10-point ROS reviewed and negative except as noted in HPI Past Medical History Health Maintenance - Referral to a manager human resources and healthcare educator for dietary management and education. Physical Exam General: Well-appearing, in no acute distress. Vital signs: Blood pressure noted to be high at 154 and 158 on separate occasions. HEENT: Normocephalic, atraumatic. PERRLA, EOMI. Conjunctiva clear, sclera anicteric. Oropharynx clear, mucous membranes moist. TMs intact bilaterally. Neck: Supple, no lymphadenopathy, no thyromegaly, no JVD or carotid bruits. Cardiovascular: RRR, normal S1/S2, no murmurs, rubs, or gallops. Peripheral pulses 2+ and symmetric. No edema. Respiratory: Lungs clear to auscultation bilaterally, no wheezes, rales, or rhonchi. Normal effort. Abdomen: Soft, non-tender, non-distended. Normoactive bowel sounds. No hepatosplenomegaly, no masses. MSK: Full range of motion, no joint swelling or deformity. Normal gait. Skin: Warm, dry, intact. No rashes, lesions, or pallor. Neuro: Alert and oriented x3. Cranial nerves II-XII intact. Strength 5/5 throughout. Sensation intact. Reflexes 2+ symmetric. Normal coordination and gait. Psych: Appropriate mood and affect. Normal judgment and insight. Plan 1. Type 2 Diabetes Mellitus - The patient will attempt dietary control for three months before considering additional medication such as Januvia. - Follow-up with a manager human resources and healthcare educator has been arranged. 2. Hyperlipidemia - start taking atorvastatin 20 mg - Emphasize the importance of medication adherence to the patient. 3. Hypertension - Initiate home blood pressure monitoring to determine the need for medication adjustment. - Re-evaluate blood pressure control in two weeks. Discussion Notes During the visit, I discussed with the patient the management of her Type 2 Diabetes Mellitus, emphasizing the need for dietary control and the potential addition of Januvia if glycemic control does not improve in three months. We also reviewed her hyperlipidemia, patient confesses that she has not been taking the atorvastatin and will start taking now we will repeat labs in 3 - 6 months. For hypertension, I advised home blood pressure monitoring to assess the need for medication adjustment, with a follow-up scheduled in two weeks. Patient Instructions - Monitor blood pressure at home twice daily and record the readings. - Follow dietary recommendations provided by the manager human resources and healthcare educator. - Take atorvastatin as prescribed and report any side effects. Medical Decision Making The patient's Type 2 Diabetes Mellitus requires improved glycemic control, with a current A1c of 7.6. I recommended dietary modifications and potential addition of Januvia if no improvement is seen in three months. Her hyperlipidemia management involves increasing atorvastatin to 40 mg due to elevated LDL and triglycerides, emphasizing adherence to medication. For hypertension, home monitoring will guide potential medication adjustments, with a follow-up in two weeks to reassess blood pressure control. Total time spent caring for the patient today was 30 minutes. This includes time spent before the visit reviewing the chart, time spent documenting, and time spent reviewing laboratory results, diagnostic imaging, medications, performing a medically necessary evaluation, counseling on diagnoses, care coordination. [facility] Medical History (Updated 02/02/25 @ 10:07 by Lee Becerra MD) Chronic GERD without esophagitis Diabetic neuropathy GERD (gastroesophageal reflux disease) Hyperlipidemia Hypertension Diabetes mellitus type 2, controlled, without complications Family History Father No problems noted. Mother Stroke Social History Housing: House Alcohol intake: current Alcohol intake frequency: holidays/special occasions only Patient Tobacco Use Status: Never used Tobacco service: No Current occupational status: retired Cognitive needs: Yes (cane) Hearing needs: No Vision needs: Yes (rx glasses) Questionnaire PHQ-9 Over the last 2 weeks, how often have you been bothered by any of the following problems? 1. Little interest or pleasure in doing things: not at all 2. Feeling down, depressed, or hopeless: not at all 3. Trouble falling or staying asleep, or sleeping too much: several days 4. Feeling tired or having little energy: not at all 5. Poor appetite or overeating: not at all 6. Feeling bad about yourself - or that you are a failure or have let yourself or your family down: not at all 7. Trouble concentrating on things, such as reading the newspaper or watching television: not at all 8. Moving or speaking so slowly that other people could have noticed. Or the opposite - being so fidgety or restless that you have been moving around a lot more than usual: not at all 9. Thoughts that you would be better off or of hurting yourself in some way: not at all Total score: 1 Source: Developed by Drs. Frank Jacob, LauraPramod Ponce and colleagues, with an educational reece from [employer]. Thrive Questionnaire Date Thrive assessed: 02/16/25 I am a: Patient What is your living situation today?: I have a steady place to live Within the past 12 months, did the food you bought not last and you didn't have the money to get more?: I choose not to answer this question Within the past 12 months, did you worry whether your food would run out before you got money to buy more?: I choose not to answer this question Do you have trouble paying for medicines?: I choose not to answer this question Do you have trouble getting transportation to medical appointments?: I choose not to answer this question Do you have trouble paying your heating and electricity bill?: I choose not to answer this question Do you have trouble taking care of your child, family member or friend?: I choose not to answer this question Do you have trouble with day-to-day activities such as bathing, preparing meals, shopping, managing finances, etc.?: No Are you currently unemployed and looking for a job?: No Are you interested in more education?: No Please select the resources that you would like help with: None Currently or been in a relationship where the following occur: No concerns reported THRIVE Score: 0 AUDIT C Alcohol Use Questionnaire (AUDIT-C) 3. How often do you have six or more drinks on one occasion?: Never Total Score: 0 J LUIS-7 AMB Questionnaire J LUIS-7 Feeling nervous, anxious, or on edge: 0 = Not at all Not being able to stop or control worryin = Not at all Worrying too much about different things: 0 = Not at all Trouble relaxin = Not at all Being so restless that it is hard to sit still: 0 = Not at all Becoming easily annoyed or irritable: 1 = Several days Feeling afraid as if something awful might happen: 0 = Not at all Total J LUIS-7 score (0-4 normal; 5-9 mild; 10-14 moderate; 15-21 severe): 1 Source: Developed by Drs. Frank Jacob, Pramod Thomas and colleagues, with an educational reeec from [employer]. Physical exam (Primary Care) Vital Signs: Last Vital Signs Temp 97.4 F 02/16/25 10:50 Pulse 84 02/16/25 10:50 Resp 16 02/16/25 10:50 BP 150/68 H 02/16/25 10:50 Pulse Ox 100 02/16/25 10:50 Oxygen Delivery Method Room Air 02/16/25 10:50 Tobacco/Smoking Status: Tobacco use Status Tobacco use date assessed 02/02/25 02/16/25 10:52 Patient Tobacco Use Status Never used Tobacco 02/16/25 10:52 PHQ-9: PHQ-9 Score PHQ-9: Total score 1 02/16/25 10:52 Thrive Assessment: Date of Thrive Assessment Date Thrive assessed 02/16/25 02/16/25 10:52 Currently or been in a relationship where the following occur: No concerns reported Coding Level of Care Code Est Pt Level 4 (01955) Diagnoses Diabetes mellitus type 2, controlled, without complications E11.9 Hyperlipidemia E78.5 Hypertension I10 Assessment & Plan Assessment & Plan (1) Diabetes mellitus type 2, controlled, without complications: Code(s): E11.9 - Type 2 diabetes mellitus without complications Category: Medical (2) Hyperlipidemia: Code(s): E78.5 - Hyperlipidemia, unspecified Category: Medical (3) Hypertension: Code(s): I10 - Essential (primary) hypertension Category: Medical Plan
[2025-02-16 10:50] VITALS: BP 150/68; PULSE 84; RESP 16; TEMP 36.3; O2SAT 100
--- OUTSIDE RECORDS SUMMARY | 2025-02-16 13:01 | XMS_ITS | Encounter Summary ---
Author Organization [facility] Address [address] [place] [address] Care Team Providers Care Medical Affairs Leader Name Role Phone JenniferZenia fletcheralberto HAMILTON Primary Care Provider + Pravin Davis MD Unavailable Encounter Details Date Type Department Care Team (Late st Contact Info) Description 09/08/2024 Scanned Document [facility] [address] [address] Primary Care, Scan Social History Tobacco Use [...] on filedocumented in this encounter Care Teams Medical Affairs Leader Relationship Specialty Start Date End Date Chiki Jarquin DO [address] [place] [address] PCP - General Internal Medicine 09/10/24 Pravin Davis MD [address] [place] [address] Primary Wood Boatbuilder Apprentice Cardiovascular Disease 11/18/24 documented as of this encounter
--- OUTSIDE RECORDS SUMMARY | 2025-02-16 13:01 | XMS_ITS | Clinical Summary ---
Author Organization [facility] Address [address] [place] [address] Care Team Providers Care Administrative Services Specialist Name Role Phone Chiki Jarquin DO Primary Care Provider [phone] Pravin Davis MD Unavailable Allergies Active Allergy [...] Team Description 11/16/2024 9:00 AM EDT Consult [facility] [place] [address] [facility] [address] [place] [address] Pravin Dvais MD Chest pain, unspecified type (Primary Dx); [...] Vaccine (1 of 2) 08/24/2001 RSV Vaccine 50 years and old er and Patients (1 [...] AM EDT) Ventricular rate 102 BPM EKG [facility] Atrial rate 102 BPM EKG [facility] P-R interval 168 ms EKG [facility] QRS duration 88 ms EKG [facility] Q-T interval 348 ms EKG [facility] QTC calculation (Bazett) 453 ms EKG [facility] P axis 36 degrees EKG [facility] R axis -37 degrees EKG [facility] T axis 39 degrees EKG [facility] 11/16/2024 8:41 AM EDT Narrative EKG [facility] - 11/16/2024 2:55 PM EDT Sinus tachycardia Left anterior fascicular block Abnormal ECG No previous ECGs available Confirmed by MD Davis Eran () on 11/16/2024 2:55:46 PM Procedure Note Pravin Davis MD - 11/16/2024 Sinus tachycardia Left anterior fascicular block Abnormal ECG No previous ECGs available Confirmed by MD Davis Eran () on 11/16/2024 2:55:46 PM Pravin Davis MD ECG ORDERABLES Final Result [facility] from Last 3 Months Insurance [facility] MEDICARE Care Teams Administrative Services Specialist Relationship Specialty Start Date End Date Chiki Jarquin DO [address] [place] [id number] PCP - General Internal Medicine 09/10/24 Pravin Davis MD [address] [place] [address] Primary Horticultural Specialty Grower Cardiovascular Disease 11/18/24
--- OUTSIDE RECORDS SUMMARY | 2025-02-16 13:02 | XMS_ITS | Clinical Summary ---
Author Organization [facility] Health Address [address] [place] [address] Care Team Providers Care Balling Machine Operator Name Role Phone Unavailable Primary Care Provider [...] 01/11/2025 3:00 PM PDT Office Visit Dentists [address] [phone] Dexter Quintero DDS 01/05/2025 10:30 AM PDT Office Visit Dentists [place] [address] [place] [address] Dexter Quintero DDS 12/21/2024 2:00 PM PDT Office Visit Dentists [address] [phone] Dexter Quintero DDS 12/16/2024 1:15 PM PDT Office Visit [facility]ists [address] [place] [address] [place] [address] Michelle Graves RDH 12/15/2024 10:00 AM PDT Office Visit Dentists of [address] [phone] Dexter Quintero DDS from Last 3 Months [...] Upcoming Encounters Date Type Department Care Team ([facility] Contact Info) Description 03/22/2025 10:30 AM PST Office Visit [facility]ists of [address] [phone] Michelle Graves, [facility] [address] [facility] [address] [place] [address] Health Maintenance Due Date Last Done Comments [...] - ADULT Routine 12/15/2024 10:00 AM PDT MEDICAL RECORDS AUDITOR FOUR BITEWING XRAYS Routine 10:00 AM PDT NEW PATIENT INTRAORAL - PERIAPICAL FIRST RADIOGRAPHIC IMAGE Routine 12/15/2024 10:00 AM PDT MEDICAL RECORDS AUDITOR CBCT Routine 12/15/2024 10:00 AM PDT ORAL [...] Result [facility]STICS from Last 3 Months [facility]
--- OUTSIDE RECORDS SUMMARY | 2025-02-16 13:02 | XMS_ITS | Patient Health Record ---
Author Organization [facility] Billing [facility] Address [address] [place] [address] Care Team Providers Care Signal Wirer Name Role Phone Sinan Kenney Primary Care Provider SINAN Olivas Unavailable [phone] Allergies Allergen (clinical drug ingredient) Drug/Non Drug [...] Problem Status W/U Status Risk Notes Problem 268817799 Overweight (E66.3) Active confirmed Problem 173967714 Mixed hyperlipid emia (E78.2) Active confirmed Problem 561715906 Dietary counseli ng and surveillance (Z71.3) Active confirmed Problem 90558331 Essential hypertension (I10) Active confirmed Problem 531880525 Chronic insomnia (F51.04) Active confirmed Problem 616388307 Gastroesophageal reflux disease without esophagitis (K21.9) Active confirmed Problem 864878582 BMI 28.0-28.9,ad ult (Z68.28) Active confirmed Problem 94710433 Lipoma of scalp (D17.0) Active confirmed Problem 091892281 Edema of both fe et (R60.0) Active confirmed Problem Diabetic peripheral neuropathy associated with type 2 diabetes mellitus (0409081562751 ) Type 2 diabetes mellitus with diabetic neuropathy, without long-term current use of insulin (E11.40) Active confirmed Problem 333989754 Osteopenia of multiple sites (M85.89) Active confirmed Problem 60646940 Type 2 diabetes mellitus with other specified complication, without long-term current use of insulin (E11.69) Active confirmed Plan Of Treatment Future Test Test Name Order Date Hemoglobin A1c ([id number]) 01/05/2024 Comp. Metabolic Panel (14) ([id number]) Insurance Providers Payer Name Payer Address Payer Phone Subscriber Number Group Number Insured Name Patient Relationship to Insured Coverage Start Date Coverage End Date [employer] MED ADVANTAGE CHOICE HMO [address] [address] [place], [place] [id number] GenevieveMimi Self - patient is the insured Medical (General) History Medical History History ICD Code HTN DM II DM Neuropathy HLD HTN Osteopenia GERD
--- OUTSIDE RECORDS SUMMARY | 2025-02-16 13:02 | XMS_ITS | Clinical Summary ---
Author Organization [facility] Address [address] [place] [address] Phone Care Team Providers Care Electro Winning Operator Name Role Phone Chiki Jarquin DO Primary Care Provider [phone] Social History Tobacco Use Types Packs/Day Years Used Date Smoking Tobacco: Never Assessed Comments Unknown Sex and Gender Information Value Date Recorded Sex Assigned at Not on file Legal Sex Female 2:48 PM EDT Gender Identity Not on file Sexual Orientation Not on file Plan of Treatment Health Maintenance Due Date Last Done Comments Breast Cancer Screening 1950 Colorectal Cancer Screening: Colonoscopy 1950 DTaP,Tdap,and Td Vaccines (1 - Tdap) 08/24/1970 Pneumococcal Vaccine: 50+ Ye ars (1 of 1 - PCV) 08/24/2001 Zoster Vaccines (1 of 2) 08/24/2001 Depression Screening 05/05/2024 Falls Risk Assessment 08/13/2024 Hepatitis C Screening 08/13/2024 Medicare Annual Wellness Visit 08/13/2024 Osteoporosis Screening (Bone Density Screening) 08/13/2024 Social Influencers of Health Screening 08/13/2024 COVID-19 Vaccine ( - 2023-2 5 season) 2025 Influenza Vaccine (#1) 2025 RSV Immunization Adult Patie nts (1 - 1-dose 75+ series) 08/24/2026 HIB Vaccines Aged Out No longer eligi [...] topic Insurance [employer] MEDICARE Care Teams Electro Winning Operator Relationship Specialty Start Date End Date Chiki Jarquin DO [address] [place] [id number] PCP - General Internal Medicine 10/06/24
--- OUTSIDE RECORDS SUMMARY | 2025-02-16 13:02 | XMS_ITS | Encounter Summary ---
Author Organization [facility] Address [address] [place] [address] Care Team Providers Care Human Resources Professional Name Role Phone Unavailable Primary Care Provider Unavailabl e Prior Encounters Date Type Department Care Team Description 01/11/2025 3:00 PM PDT Office Visit [facility]ists [address] [phone] Dexter Quintero DDS 01/05/2025 10:30 AM PDT Office Visit Dentists [address] [phone] Dexter Quintero DDS 12/21/2024 2:00 PM PDT Office Visit Dentists [address] [phone] Dexter Quintero DDS 12/16/2024 1:15 PM PDT Office Visit [facility]ists [address] [phone] Michelle Graves 12/15/2024 10:00 AM PDT Office Visit [facility]ists [address] [address] Dexter Quintero DDS 10/09/2022 11:30 AM PDT Office Visit [facility] [address] [place] [phone] Ana Maria Pennington DMD Last Filed Vital [...] Upcoming Encounters Date Type Department Care Team ([facility] st Contact Info) Description 03/22/2025 10:30 AM PST Office Visit [facility] [address] [place] [phone] Michelle Graves, [address] [place] [address] Procedures Procedure Name Priority Date/Time Associated Diagnosis [...] - ADULT Routine 12/15/2024 10:00 AM PDT CABINET MAKER FOUR BITEWING XRAYS Routine 10:00 AM PDT NEW PATIENT INTRAORAL - PERIAPICAL FIRST RADIOGRAPHIC IMAGE Routine 12/15/2024 10:00 AM PDT CABINET MAKER CBCT Routine 12/15/2024 10:00 AM PDT ORAL [...] DENTOGNOSTICS Visit Diagnoses Not on file Insurance [facility]
--- OUTSIDE RECORDS SUMMARY | 2025-02-16 13:02 | XMS_ITS | Patient Health Record ---
Author Organization [email or web address] Address [address] [place] [address] Care Team Providers Care Irrigationist Name Role Phone Niraj Anna MD Primary [...] W/U Status Risk Notes Problem Mixed hyperlipidemia (615792277) Mixed hyperlipidemia (E78.2) Active confirmed Problem Primary insomnia (4567977) Primary insomnia (F51.01) Active confirmed Problem Gastroesophageal reflux disease (164164372) GERD without esophagitis (K21.9) Active confirmed Problem Essential hypertension (20299995) Essential (primary) hypertension (I10) Active confirmed Problem Polyneuropathy due to type 2 diabetes mellitus (264267619) Type 2 diabetes mellitus with diabetic polyneuropathy, without long-term current use of insulin (E11.42) Active confirmed Problem Type 2 diabetes mellitus with other specified complication, unspecified whether terminal gauger insulin use (E11.69) Active confirmed Problem Screening procedure (62926061) Due for screening (Z13.9) Active confirmed Encounters Encounter Location Date Provider Diagnosis [facility] [address] [facility], [place] [phone] 03/09/2024 Niraj Anna [facility] [address] [facility], [place] [id number] 03/11/2024 Niraj Anna [facility] [address] [facility], [place] [phone] 03/11/2024 Niraj Anna [facility] [address] [facility], [place] [phone] 03/16/2024 Niraj Anna Plan Of Treatment Future [...] Insured Coverage Start Date Coverage End Date [id number] [place] [address] [address] [place], [place] [id number] [phone] Mimi Vallejo Self - patient is the insured Medical (General) History Medical History History ICD Code diabetes high cholesterol hypertension acid reflux insomnia neuropathy [place] 2025 Surgical History Surgery Date(Month/Year) C section 1986 Hospitalization History Reason Date(Month/Year) 3 child 1973,1983, 1986 hypertension 2020
--- OUTSIDE RECORDS SUMMARY | 2025-02-16 13:03 | XMS_ITS | Patient Health Record ---
Author Organization [employer] [facility] Address [address] [place] [address] Care Team Providers Care Dessert Cup Machine Feeder Name Role Phone Chiki Jarquin Primary Care Provider [phone] Sujata Santos Unavailable [phone] Allergies No Known Allergies Results Component Value Reference Range Flag Notes Comp Metabolic Panel w/eGFR 16327 Reviewed date:2024 01:53:00 PM Interpretation:glucose 125 Performing Lab:1, , [address] [place], [address] Catie Maier M.D. Notes/Report: Received Date: 0; 0; 0; 0; 0 FASTING:YES PATIENT UNABLE TO VOID; ADVISED TO RETURN FOR CO FASTING: YES GLUCOSE 125 65-99 mg/dL H Fasting reference interval For someone without known diabetes, a glucose value between 100 and 125 mg/dL is consistent with prediabetes and should be confirmed with a follow-up test. UREA NITROGEN (BUN) 10 7-25 mg/dL N CREATININE 0.54 0.60-1.00 mg/dL L EGFR 98 > OR = 60 mL/min/1.73m2 N BUN/CREATININE RATIO 19 6-22 (calc) N SODIUM 139 135-146 mmol/L N POTASSIUM 4.5 3.5-5.3 mmol/L N CHLORIDE 101 98-110 mmol/L N CARBON DIOXIDE 28 20-32 mmol/L N CALCIUM 9.5 8.6-10.4 mg/dL N PROTEIN, TOTAL 7.1 6.1-8.1 g/dL N ALBUMIN 4.3 3.6-5.1 g/dL N GLOBULIN 2.8 1.9-3.7 g/dL (calc) N ALBUMIN/GLOBULIN RATIO 1.5 1.0-2.5 (calc) N BILIRUBIN, TOTAL 0.6 0.2-1.2 mg/dL N ALKALINE PHOSPHATASE 62 37-153 U/L N AST 18 10-35 U/L N Results slight ly increased due to hemolysis. ALT 11 6-29 U/L N CBC (H/H,RBC,Indices,WBC,Plt ) 1759 Reviewed date:2024 01:53:00 PM Interpretation: Normal Performing Lab:[facility]1, , [address] [place], [address] Catie Maier M.D. Notes/Report: Received Date: [id number] 0; 0; 0; 0; 0 FASTING:YES PATIENT UNABLE TO VOID; ADVISED TO RETURN FOR CO FASTING: YES WHITE BLOOD CELL COUNT 7.9 3.8-10.8 Thousand/uL N RED BLOOD CELL COUNT 4.36 3.80-5.10 Million/uL N HEMOGLOBIN 12.6 11.7-15.5 g/dL N HEMATOCRIT 38.8 35.0-45.0 % N MCV 89.0 80.0-100.0 fL N MCH 28.9 27.0-33.0 pg N MCHC 32.5 32.0-36.0 g/dL N For adults, a slight decrease in the calculated MCHC value (in the range of 30 to 32 g/dL) is most likely not clinically significant; however, it should be interpreted with caution in correlation with other red cell parameters and the patient's clinical condition. RDW 13.0 11.0-15.0 % N PLATELET COUNT 315 140-400 Thousand/uL N MPV 10.0 7.5-12.5 fL N Hemoglobin A1c 496 Reviewed date:2024 01:53:00 PM Interpretation:7.6 Performing Lab:[facility]1, , [address] [place], [address] Catie Maier M.D. Notes/Report: Received Date: [id number] 0; 0; 0; 0; 0 FASTING:YES PATIENT UNABLE TO VOID; ADVISED TO RETURN FOR CO FASTING: YES HEMOGLOBIN A1c 7.6 <5.7 % H For someone without known diabetes, a hemoglobin [...] diabetes for children. Lipid Panel w/refl LDL 07110 Reviewed date:2024 01:53:00 PM Interpretation: Normal Performing Lab:NL1, , [address] [place], [address] Catie Maier M.D. Notes/Report: Received Date: [id number] 0; 0; 0; 0; 0 FASTING:YES PATIENT UNABLE TO VOID; ADVISED TO RETURN FOR CO FASTING: YES CHOLESTEROL, TOTAL 161 <200 mg/dL N HDL CHOLESTEROL 52 > OR = 50 mg/dL N TRIGLYCERIDES 121 <150 mg/dL N LDL-CHOLESTEROL 87 N Reference range: <100 Desirable range <100 mg/dL for primary prevention; <70 mg/dL for patients with CHD or diabetic patients with > or = 2 CHD risk factors. LDL-C is now calculated using the Lewis-Dorantes calculation, which is a validated novel method providing better accuracy than the Friedewald equation in the estimation of LDL-C. Lewis SS et al. ARMAND. 2013;310(19): 2864-4475 (http://education.Iencuentra/faq/CQJ861) CHOL/HDLC RATIO 3.1 <5.0 (calc) N NON HDL CHOLESTEROL 109 <130 mg/dL (calc) N For patients with diabetes plus 1 major ASCVD risk factor, treating to a non-HDL-C goal of <100 mg/dL (LDL-C of <70 mg/dL) is considered a therapeutic option. Urinalysis IH Reviewed date:09/03/2024 11:28:25 AM Interpretation:Normal Performing Lab: Notes/Report: Normal Exp. Date 02/01/2025 Lot No. [id number] Leuko Negative Nitrite Negative Urobilinogen 0.2 Protein Negative pH 6.0 Blood Negative Sp. Gr. 1.010 Ketone Negative Biliruben Negative Glucose 100 mg/dl Reason For Referral Reason chest pain Diagnosis 1 Chest pain (R07.9) Diagnosis 2 Long QT interval (I4 5.81) Diagnosis 3 Congestive heart dis ease (I50.9) Diagnosis 4 Left axis deviation (R94.31) Referral Organization [facility] Referring Provider First Name Chiki Referring Provider Last Name Britton Referring Provider Speciality Internal M edicine Referred Provider Self [facility] Referred Provider Specialty Cardiology General Notes Addy Referral Paratransit Driver olman, Roxann 09/07/2024 02:12:09 PM > faxed referral medical summary progress note labs noEKG [phone], pernell, support 09/07/2024 14:23:00 PM>, [facility]: Referral for , [facility] no auth required, pernell, support 09/07/2024 14:23:00 PM>, [facility]: Referral Recommendations Sent to Patient , [facility] , [address] , [facility], [address] , , , pernell, support 09/10/2024 14:26:00 PM>, [facility] 09/10/24 02:15 PM: Patient Reviewed Link, pernell, support 09/15/2024 14:23:00 PM>, [facility] 09/15/24 02:17 PM: Patient Confirmed Appt Scheduled, pernell, support 09/20/2024 10:39:00 AM>, [facility] 09/20/24 09:55 AM: Patient opted out of SMS communication., pernell, support 10/20/2024 15:51:42 PM>, [facility] Summary, [facility] 09/07/24 01:13 PM: Patient Sent Specialist Recommendation , [facility] , [address] , [facility], [address] , , , [facility] 09/10/24 01:13 PM: [...] 08:55 AM: Patient opted out of SMS communication.Milli Lee Menon 11/18/2024 12:18:53 PM > consult received Referral Priority Routine Referral Appointment Date 11/16/2024 Medications Medication SIG (Take, Route, Frequency, Duration) Notes Start Date End Date Status Accu-Chek Guide Test - Strip 1 In Vitro 3 times a day; Duration: 90 days 11/18/2024 Active Durable Medical Equipment Accu-Check lancets DX code E11.9 three times a day; Duration: 90 days 11/18/2024 Active Omeprazole 40 MG Capsule Delayed Release 1 capsule Orally Once a day; Duration: 90 days Active FreeStyle Lancets - Miscellaneous USE TO CHECK BLOOD GLUOCSE ONCE A DAY; Duration: 90 Days Active True Metrix Blood Glucose Test - Strip 1 In Vitro 4 times a day; Duration: 90 days pls disregard metformin 1000 once a day prescription 08/09/2024 Active metFORMIN HCl 1000 MG Tablet TAKE 1 TABLET BY MOUTH DAILY WITH A MEAL Oral twice a day; Duration: 90 days Active FreeStyle Lite w/Device Kit USE TO TEST BLOOD SUGAR ONCE A DAY; Duration: 90 Days Active Accu-Chek Guide Test - Strip 1 In Vitro once a day; Duration: 90 days 11/16/2024 Active FreeStyle Lite Test - Strip USE TO CHECK BLOOD GLUCOSE ONCE A DAY In Vitro; Duration: 90 Days Active Accu-Chek Guide w/Device Kit 1 subcutaneous once a day; Duration: 90 11/16/2024 Active Losartan Potassium 50 MG Tablet 1 tablet Orally twice a day; Duration: 90 days Active Atorvastatin Calcium 10 MG Tablet TAKE 1 TABLET BY MOUTH EVERY DAY Oral; Duration: 90 Days Active Social History Tobacco Use: Social History Observation Description Date Details (start date - stop date) Never Smoker NA - NA Social History Social History Social Info Question Answer Notes Patient's perception of literacy I read well in: Portuguese Sierra Leonean, 08/09/2024 ES Tobacco Control (Standard) Tobacco use: Nonsmoker Health Literacy How confident are yo u filling out medical forms by yourself? 1 Extremely 08/09/2024 ES How do you like To Learn : all of them, 08/09/2024 ES Language Spoken Language Spoken [place]an, Portuguese 025 ES // Portuguese is 1st language Problems Problem Type SNOMED Code ICD Code Onset Dates Problem Status W/U Status Risk Notes Problem Body mass index 30.00 to 34.99 (296724468031540 ) Body mass index (BMI) 33.0-33.9, adult (Z68.33) Active confirmed Problem Body mass index 30.00 to 34.99 (522797994121518 ) Body mass index (BMI) 34.0-34.9, adult (Z68.34) Active confirmed Problem Hypertension (30011803) Hypertension (I10) Active confirmed Problem Long QT syndrome (5461391) Long QT interval (I45.81) Active confirmed Problem Congestive heart disease (66784971) Congestive heart disease (I50.9) Active confirmed Problem Left axis deviation (90337699) Left axis deviation (R94.31) Active confirmed Problem Type II diabetes mellitus without complication (339107254) DM type 2, goal HbA1c < 7% (E11.9) Active confirmed Vital Signs Temperature 98.5 degrees Fahrenheit 09/03/2024 Respiratory Rate 16 /min 09/03/2024 Oximetry 98 % 09/03/2024 Blood pressure diastolic 85 mm Hg 09/03/2024 Height 57 in 09/03/2024 Blood pressure systolic 138 mm Hg 09/03/2024 Weight 156.4 lbs 09/03/2024 BMI 33.84 kg/m2 09/03/2024 Encounters Encounter Location Date Provider Diagnosis [facility] [address] [address] 08/09/2024 Chiki Jarquin DM type 2, goal HbA1 c < 7% E11.9 [facility] [address] [address] 08/10/2024 Chiki Jarquin [address] [address] 08/20/2024 Chiki Jarquin [address] [address] 2024 Chiki Jarquin [address] [address] 09/13/2024 Chiki Jarquin [place] [address] 10/15/2024 Chiki Jarquin [address] [id number] [address] 10/21/2024 Chiki Jarquin [address] [address] 11/16/2024 Chiki Jarquin [address] [address] 11/18/2024 Chiki Jarquin [address] [address] 12/13/2024 Chiki Jarquin Hypertension I10 and DM type 2, goal HbA1c < 7% E11.[address] [address] 09/03/2024 Chiki Jarquin Chest pain R07.9 ; Congestive heart disease I50.9 ; Left axis deviation R94.31 ; Long QT interval I45.81 ; Hypertension I10 ; Body mass index (BMI) 33.0-33.9, adult Z68.33 and Dysuria R30.[address] [address] 08/09/2024 Chiki Jarquin Encounter for behavioral health [...] - Z68.33) 09/03/2024 Dysuria (ICD-10 - R30.0) Plan Of Treatment Pending Test Test Name Order Date Microalbumin,[facility] (w/creat) 6517 11/2024 Cologuard 10/22/2024 Insurance Providers Payer Name Payer Address Payer Phone Subscriber Number Group Number Insured Name Patient Relationship to Insured Coverage Start Date Coverage End Date [facility] - Medical [address] [place] [address] [phone] [id number] Mimi Vallejo Self - patient is the insured [facility] Medicare Adv PPO - [address] [place] [id number] Mimi Vallejo Self - patient is the insured Medical (General) History Hospitalization History Reason Date(Month/Year) HTN
== END 2025-02-16 11:17 | disposition home or self-care (01) ==
LOC: HO.HMCFMS 10:48
PROVIDERS: PCP Student in an Organized Health Care Education/Training Program; Visit Provider Student in an Organized Health Care Education/Training Program
DX: E11.9 Type 2 diabetes mellitus without complications (principal); E78.5 Hyperlipidemia, unspecified; I10 Essential (primary) hypertension

== ENCOUNTER 2025-03-01 13:22 | Outpatient (AMB) | payer OTHER, SELFPAY ==
--- OUTSIDE RECORDS SUMMARY | 2023-10-20 05:15 | XMS_ITS ---
Author Organization [employer] Address [address] [place] [address] Care Team Providers Care Admissions Rn Name Role Phone Wilfrido SUNG, Niraj Primary Care Provider [phone] Edson Garces PA-C REASON FOR VISIT 3m fasting labs Encounters Encounter Location Date Provider Diagnosis [facility] [address] [place] [id number] 10/20/2023 Edson Garces Plan Of Treatment No Information Progress Notes * Mimi ALBRECHTDOB:1950 (74 yo F)Acc No.[id number]:10/20/2023 UNLOCKED PROGRESS NOTE Patient: Mimi Gleason Provider: Solange Garces PA-C :1950 A ge:73 Y S ex:Female Date:10/20/2023 Address:[facility] [place] [facility] [id number] Pcp:Niraj Anna MD Subjective: * Chief Complaints: * 3 m fasting labs Objective: Past Vitals:* 07/21/2023 BP:sittin/59mm Hg, RR:1 6/min, Pulse:sittin/min, Temp:oral:97.3F, Ht:56in, Wt:148.2lbs, BMI:33.22Index, Oxygen Sat:Room Air:98%, Pain Scale:01-10 * Electronic signature of Vlad Garces PA-C, PA-C on 03/01/2025 at 04:14 PM CDT Sign off status: Pending * Provider: Solange Garces PA-C Date: 0 10/20/2023 Generated for Anjali madison/Lv/Isabelle on: 1 04:14 PM CDT
--- OUTSIDE RECORDS SUMMARY | 2023-11-13 04:27 | XMS_ITS ---
Author Organization [facility] Physician Servic es Billing Info Address [address] [place], [place] [address] Care Team Providers Care Ladle Operator Name Role Phone Sinan Kenney Primary Care Provider SINAN Olivas Unavailable [phone] REASON FOR VISIT Terrancebelsus SIDNEY Encounters Encounter Location Date Provider Diagnosis [id number] [facility] [address] [address] [place], [place] [id number] 11/13/2023 SINAN KENNEY Plan Of Treatment No Information Progress Notes * Mimi ALBRECHTDOB:1950 (73 yo F)Acc No.[id number]:11/13/2023 Patient: Mimi BENTLEY :1950 A ge:73 Y S ex:Female Address:[address], [place], [address] * true * Date: Generated for Printi ng/Faxing/eTransmitting on: 04:13 PM CDT
--- OUTSIDE RECORDS SUMMARY | 2023-11-17 05:10 | XMS_ITS ---
Author Organization [facility] Billing Info Address [address] [place], [place] [address] Care Team Providers Care Combatant Diver Qualified Name Role Phone Sinan Kenney Primary Care Provider UnavailSINAN Vanegas Unavailable [phone] REASON FOR VISIT PA approved Medications Medication SIG (Take, Route, Frequency, Duration) Notes Start Date End Date Status Rybelsus 7 MG 1 tablet at least 30 minutes before first food, beverage or other oral medicine of the day Orally Once a day for 90 days Rybelsus 3mg started as sample; PA Approved; Rx #: [id number] 11/12/2023 Active Encounters Encounter Location Date Provider Diagnosis [id number] [facility] [address] [address] [place], [place] [address] 11/17/2023 SINAN KENNEY Type 2 diabetes mellitus [...] started as sample; PA Approved; Rx #: [id number] Progress Notes * Mimi ALBRECHTDOB:1950 (73 yo F)Acc No.[id number]:11/17/2023 Patient: Mimi BENTLEY :1950 A ge:73 Y S ex:Female Address:[address] [place] [address], [place], [address] * Refills Refill Rybelsus Tablet, 7 MG, Orally, 90, 1 tablet at least 30 minutes before first food, beverage or other oral medicine of the day, Once a day, 90 days, Refills=1 * true * Date: Generated for Anjali madison/Lv/Estivensmitting on: 04:14 PM CDT
--- OUTSIDE RECORDS SUMMARY | 2023-11-19 07:06 | XMS_ITS ---
Author Organization [facility] Billing Info Address [address] [place], [place] [address] Care Team Providers Care Director Of Cardiac Cath Lab Name Role Phone Sinan Kenney Primary Care Provider SINAN Olivas Unavailable [phone] REASON FOR VISIT Rybelsus and refill for [...] Active Encounters Encounter Location Date Provider Diagnosis [id number] [facility] [address]326 IH [address] [place], [place] [address] 11/19/2023 SINAN KENNEY Type 2 diabetes mellitus [...] started as sample; PA Approved; Rx #: [id number] Progress Notes * Mimi ALBRECHTDOB:1950 (73 yo F)Acc No.[id number]:11/19/2023 Patient: Mimi BENTLEY :1950 A ge:73 Y S ex:Female Address:[address] [place] [address], [place], [address] * Refills Refill Glucose Test Strips - [...] * Date: Generated for Anjali madison/Lv/eTransmitting on: 1 04:11 PM CDT
--- OUTSIDE RECORDS SUMMARY | 2023-12-03 10:15 | XMS_ITS ---
Author Organization [facility] Billing Info Address [address] [place], [place] [address] Care Team Providers Care Cmo Name Role Phone Sinan Ken[place] Primary Care Provider UnavailSINAN Vanegas Unavailable [phone] DOMINIC SHANKS Unavailable [phone] REASON FOR VISIT leg pain ..vfj 964095 Encounters Encounter Location Date Provider Diagnosis [id number] [place] [address] [facility] [address] [address], [place] [address] 12/03/2023 DOMINIC SHANKS Plan Of Treatment No Information Progress Notes * Mimi ALBRECHTDOB:1950 (74 yo F)Acc No.[id number]:12/03/2023 PROGRESS NOTE Patient: Mimi BENTLEY Provider: MOSHE Pace :1950 A ge:73 Y S ex:Female Date:12/03/2023 C HN#:[id number] Address:[address], [id number] Pcp:Sinan Kenney Patient's Default Facility:[address] [place] [address] [facility] Subjective: * Chief Complaints: * 1 . Leg pain ..vfj 517970. * Medical History: Objective: * Vitals: Assessment: Plan: * Treatment: * Care Plan Details* * This progress note has not b een verified nor is it considered complete until locked and signed by the provider. Sign off status: Pending * Provider: MOSHE Pace Date: 0 12/03/2023 Generated for Anjali madison/Lv/Isabelle on: 04:14 PM CDT
--- OUTSIDE RECORDS SUMMARY | 2023-12-04 09:06 | XMS_ITS ---
Author Organization [facility] Billing Info Address [address] [place], [place] [address] Care Team Providers Care Metal Alloy Scientist Name Role Phone Sinan Kenney Primary Care Provider Unavailabl SINAN Godinez Unavailable [phone] REASON FOR VISIT elevated b/p Encounters Encounter Location Date Provider [id number] [address] [address] [place], [place] [id number] 12/04/2023 SINAN KENNEY Plan Of Treatment No Information Progress Notes * Mimi ALBRECHTDOB:1950 (73 yo F)Acc No.[id number]:12/04/2023 Patient: Mimi BENTLEY :1950 A ge:73 Y S ex:Female Address:[address], [place], [address] * true * Date: Generated for Printi ng/Faxing/eTransmitting on: 04:13 PM CDT
--- OUTSIDE RECORDS SUMMARY | 2023-12-04 09:15 | XMS_ITS ---
Author Organization [facility] Billing Info Address [address] [place], [place] [address] Care Team Providers Care Case Managers Name Role Phone Unruly Kenney Primary Care Provider Unavailabl e UNRULY KENNEY Unavailable [phone] DOMINIC SHANKS Unavailable [phone] Allergies Allergen (clinical drug ingredient) Drug/Non Drug Allergy documented on EMR Reaction Allergy Type Onset Date Status empagliflozin Jardiance nausea/vomiting Drug Allergy Active trazodone Trazodone intolerance Drug Allergy Activ e Reason For Referral Reason eval and treat Diagnosis 1 Left lumbar radiculo chuy (M54.16) Referral Organization [id number] Referring Provider First Name DOMINIC Referring Provider Last Name DIMITRIS Referring Provider Speciality Nurse Prac titioner Referred Provider [place] Referred Provider Specialty Physical The rapy General Notes KRISTI JACOBS 01:23:31 PM >eval and treat [place] Clinical Notes KRISTI JACOBS 02:47:05 PM >left message for patient to call and schedule an appointment with specialist, KRISTI VICENTE 12/11/2023 10:27:43 AM >rerouted per patientJULES MELISSA 12/11/2023 10:29:43 AM >left message for patient to call and schedule an appointment with specialist Referral Priority Routine REASON FOR VISIT Lt glut / leg pain x 3/d w/ radiculapathy [id number] Medications Medication SIG (Take, Route, Frequency, Duration) [...] 12/04/2023 Encounters Encounter Location Date Provider Diagnosis [id number] [address] [address] [place], [place] [id number] 12/04/2023 DOMINIC SHANKS Left lumbar radiculopathy M54.16 [...] 12/04/2023, eval and treat, Spine and Rehab [place] Next Appt Details Follow Up: prn, Reason: Progress Notes * Mimi ALBRECHTDOB:1950 (73 yo F)Acc No.[id number]:12/04/2023 PROGRESS NOTE Patient: Mimi BENTLEY Provider: MOSHE Pace :1950 A ge:73 Y S ex:Female Date:12/04/2023 C #:[id number] Address:[address] [place] [address], [facility] Pcp:Unruly Kenney Patient's Default Facility:[address] [place] [address] MED [facility] Subjective: * Chief Complaints: * L t glut / leg pain x 3/d w/ radiculapathy [id number] * HPI: F irst Point of Contact [...] or a close contact traveled outside the [facility] and you are now ill? N o [...] pain. Pt has a pending trip to [place]. * Medical History: * Surgical History: N [...] ast Orders: L ab:Comp. Metabolic Panel (14) ([id number]) (Order Date - 10/02/2023) (Collection Date & [...] 0 12/04/2023 Generated for Anjali madison/Lv/Isabelle on: 04:12 PM CDT History and Physical Notes * HPI (History of Present Illness) Category Sub-Category Detail Notes Category Not es Patient History Onset 3 days ago, pt with pain to posterior L buttock extending down leg. Increased pain in standing/walking position. Aggravated by rolling over in bed. No hx of similar problems. Pt with chronic mild bilateral low back pain. Pt has a pending trip to [place]. First Point of Contact Screening Do any [...]
--- OUTSIDE RECORDS SUMMARY | 2023-12-08 05:49 | XMS_ITS ---
Author Organization [facility] Billing Info Address [address] [place], [place] [address] Care Team Providers Care Pumping Supervisor Name Role Phone Sinan Kenney Primary Care Provider SINAN Olivas Unavailable [phone] REASON FOR VISIT New Referral Encounters Encounter Location Date Provider [facility] [address] [address] [place], [place] [address] 12/08/2023 SINAN KENNEY Plan Of Treatment No Information Progress Notes * Mimi ALBRECHTDOB:1950 (73 yo F)Acc No.[id number]:12/08/2023 Patient: Mimi BENTLEY :1950 A ge:73 Y S ex:Female Address:[address], [place], [address] * true * Date: Generated for Printi ng/Faxing/eTransmitting on: 04:13 PM CDT
--- OUTSIDE RECORDS SUMMARY | 2023-12-18 05:03 | XMS_ITS ---
Author Organization [facility] Billing Info Address [address] [place], [place] [address] Care Team Providers Care Chaperone Name Role Phone Unruly Kenney Primary Care Provider UNRULY Olivas [facility] [phone] REASON FOR VISIT Refill Medications Medication SIG (Take, Route, Frequency, Duration) Notes Start Date End Date Status Amlodipine Besylate 10 MG 1 tablet Orally Once a day Active Encounters Encounter Location Date Provider Diagnosis 835380[facility] [address] [address] [place], [place] [phone] 12/18/2023 UNRULY KENNEY Essential hypertensi on I10 [...] Notes * AMBROCIO, MimiDOB:1950 (73 yo F)Acc No.[id number]:12/18/2023 Patient: Mimi BENTLEY :1950 A ge:73 Y S ex:Female Address:[facility] [address], [place], [address] * Refills Refill Amlodipine Besylate Tablet, 10 MG, Orally, 1 tablet, Once a day Stop Telmisartan-HCTZ Tablet, 80-12.5 MG, Orally, 1 tablet, Once a day in AM for high blood pressure * true * Date: Generated for Anjali madison/Lv/Isabelle on: 1 04:12 PM CDT
--- OUTSIDE RECORDS SUMMARY | 2024-01-14 10:00 | XMS_ITS ---
Author Organization [facility] Billing Info Address [address] [place], [place] [address] Care Team Providers Care Third Grade Teacher Name Role Phone Sinan Kenney Primary Care Provider SINAN Olivas [facility] [phone] Allergies Allergen (clinical drug ingredient) Drug/Non Drug [...] smoker Encounters Encounter Location Date Provider Diagnosis [id number] [facility] [address] [address] [place], [place] [phone] 01/14/2024 SINAN KENNEY Assessments Encounter Date Diagnosis (ICD Code) Assessment Notes Treatment Notes Treatment Clinical Notes Section Notes 01/14/2024 Other A Healthy Lifestyle: Care Instructions material was published Plan Of Treatment Treatment Notes Assessment Notes Other A Healthy Lifestyle: Care Instructions material was published Progress Notes * Mimi ALBRECHTDOB:1950 (74 yo F)Acc No.[id number]:01/14/2024 PROGRESS NOTE Patient: Mimi BENTLEY Provider: Tamar KENNEY MD :1950 A ge:73 Y S ex:Female Date:01/14/2024 C HN#:[id number] Address:[facility] [address], [phone] Pcp:Sinan Kenney Patient's Default Facility:[address] [place] [address] [facility] Subjective: * Chief Complaints: * [...] 0 01/14/2024 Generated for Anjali madison/Lv/Isabelle on: 04:13 PM CDT History and Physical Notes * [...] ill? : No OFFICE USE (If universal MetaCert jordana is not in place, provide patients age 2 years and older with a facemask to wear over their mouth and nose while in the practice.):: Patient answered no to all questions OR only answered yes to question 1 No further action needed : 01/14/2024
--- OUTSIDE RECORDS SUMMARY | 2024-02-11 03:26 | XMS_ITS ---
Author Organization [facility] Physician Servic es Billing Info Address [address] [place], [place] [address] Care Team Providers Care Funeral Workers Name Role Phone Sinan Kenney Primary Care Provider UnavailSINAN Vanegas Unavailable [phone] REASON FOR VISIT reschedule Encounters Encounter Location Date Provider Diagnosis [id number] [facility] [address] [address] [place], [place] [address] 02/11/2024 SINAN KENNEY Plan Of Treatment No Information Progress Notes * Mimi ALBRECHTDOB:1950 (73 yo F)Acc No.[id number]:02/11/2024 Patient: Mimi BENTLEY :1950 A ge:73 Y S ex:Female Address:[facility] [address], [place], [address] * true * Date: Generated for Printi ng/Fajoyg/eTransmitting on: 04:13 PM CDT
--- NOTE | 2025-03-01 13:23 | A.OFFPC_ITS ---
Vital Signs 03/01/25 13:29 BP 144/65 H Blood Pressure Location Lt brachial Position Sitting Pulse 104 H Pulse Source Pulse Oximeter Temp 98.1 F Temp Source Oral Pulse Oximetry (%) 98 Oxygen Delivery Method Room Air Intake Visit Reasons: 2 week follow up Combination Presser Required: No Accompanied by: Self / Same As Patient Allergies empagliflozin (From Jardiance) Allergy (Mild, Verified 03/01/25 13:24) swollen lips gabapentin Allergy (Mild, Verified 03/01/25 13:24) swollen lips Tobacco use date assessed: 03/01/25 Fall risk assessment: No Falls in past year Last assessed Fall Risk: 03/01/25 Dental Screening Dental Screen Date: 03/01/25 Did you have a dental visit in the last 12 months?: Yes Did you have a dental problem in the last 6 months where you did not have access to dental care?: No Was dental information given to patient?: Patient has dentist HPI HPI Comments History of Present Illness Details History of Present Illness The patient is a 74-year-old female presenting for management of chronic conditions, including hypertension and diabetes, and medication review. Essential Hypertension: The patient expresses concern about her blood pressure, noting a recent reading of 144 mmHg. She is currently taking losartan twice daily. She has a history of discontinuing amlodipine due to swollen feet. She recalls her blood pressure being as low as 120 mmHg on a prior medication regimen. Her blood pressure log shows a range from 128-140 systolic which is acceptable at this time but patient wants tighter blood pressure control since she had better control when she was on amlodipine but due to the side effects was discontinued who do a 1 time dose of a combo medication of losartan 100 with hydrochlorothiazide 12.5 re-evaluate in 2 weeks Type 2 Diabetes Mellitus: The patient is currently on metformin 1000 mg twice daily, an increase from a previous dose of 1500 mg daily. She previously took glipizide but has been instructed to discard it. Knee Pain: The patient reports experiencing knee pain that worsens in cold weather. She uses a knee pad for support. She uses diclofenac 1% gel with good effect she has ran out and is asking for a prescription refill Hyperlipidemia: The patient's medication list includes atorvastatin. Medications: - Losartan: for hypertension, taken once in the morning and once at night. - Metformin 1000 mg twice a day: for irving betes. - Atorvastatin: for hyperlipidemia. - Glipizide (discontinued): previously leonor acosta for diabetes. - Amlodipine (discontinued): taken previ ously for hypertension, caused swollen feet. Social History: - Diet: The patient reports she has star yovany a diet and has lost 2 pounds. - Functional Status: The patient request ed completion of paperwork for a disabled parking permit. - Travel: The patient plans to travel to [place] during the winter months to avoid cold weather, which exacerbates her knee pain. Diagnostic Results: - Vitals: Patient-reported blood pressur e reading of 144 mmHg systolic. Past Medical History - Essential Hypertension - Type 2 Diabetes Mellitus - Hyperlipidemia - History of medication-induced peripher al edema (amlodipine) Health Maintenance - Weight Management: The patient has sta rted a diet and reports a 2-pound weight loss. [facility] Medical History Chronic GERD without esophagitis Diabetic neuropathy GERD (gastroesophageal reflux disease) Hyperlipidemia Hypertension Diabetes mellitus type 2, controlled, without complications Family History Father No problems noted. Mother Stroke Social History Housing: House Alcohol intake: current Alcohol intake frequency: holidays/special occasions only Patient Tobacco Use Status: Never used Tobacco service: No Current occupational status: retired Cognitive needs: Yes (cane) Hearing needs: No Vision needs: Yes (rx glasses) Questionnaire PHQ-9 Over the last 2 weeks, how often have you been bothered by any of the following problems? 1. Little interest or pleasure in doing things: not at all 2. Feeling down, depressed, or hopeless: not at all 3. Trouble falling or staying asleep, or sleeping too much: several days 4. Feeling tired or having little energy: not at all 5. Poor appetite or overeating: not at all 6. Feeling bad about yourself - or that you are a failure or have let yourself or your family down: not at all 7. Trouble concentrating on things, such as reading the newspaper or watching television: not at all 8. Moving or speaking so slowly that other people could have noticed. Or the opposite - being so fidgety or restless that you have been moving around a lot more than usual: not at all 9. Thoughts that you would be better off or of hurting yourself in some way: not at all Total score: 1 Source: Developed by Drs. Frank Jacob, Laura Bahena, Pramod Gustafson and colleagues, with an educational reece from [employer]. Thrive Questionnaire Date Thrive assessed: 03/01/25 I am a: Patient What is your living situation today?: I have a steady place to live Within the past 12 months, did the food you bought not last and you didn't have the money to get more?: I choose not to answer this question Within the past 12 months, did you worry whether your food would run out before you got money to buy more?: I choose not to answer this question Do you have trouble paying for medicines?: I choose not to answer this question Do you have trouble getting transportation to medical appointments?: I choose not to answer this question Do you have trouble paying your heating and electricity bill?: I choose not to answer this question Do you have trouble taking care of your child, family member or friend?: I choose not to answer this question Do you have trouble with day-to-day activities such as bathing, preparing meals, shopping, managing finances, etc.?: No Are you currently unemployed and looking for a job?: No Are you interested in more education?: No Please select the resources that you would like help with: None Currently or been in a relationship where the following occur: No concerns reported THRIVE Score: 0 AUDIT C Alcohol Use Questionnaire (AUDIT-C) 3. How often do you have six or more drinks on one occasion?: Never Total Score: 0 J LUIS-7 AMB Questionnaire J LUIS-7 Date J LUIS - 7 assessed: 03/01/25 Feeling nervous, anxious, or on edge: 0 = Not at all Not being able to stop or control worryin = Not at all Worrying too much about different things: 0 = Not at all Trouble relaxin = Not at all Being so restless that it is hard to sit still: 0 = Not at all Becoming easily annoyed or irritable: 1 = Several days Feeling afraid as if something awful might happen: 0 = Not at all Total J LUIS-7 score (0-4 normal; 5-9 mild; 10-14 moderate; 15-21 severe): 1 Source: Developed by Drs. Frank Jacob, Laura Bahena, Pramod Gustafson and colleagues, with an educational reece from [employer]. Review of Systems Narrative Review of Systems - Constitutional: Reports weight loss of 2 pounds. - Cardiovascular: History of peripheral edema with amlodipine. - Musculoskeletal: Reports knee pain exacerbated by cold weather. - Dental: Reports tooth pain. 10-point ROS reviewed and negative except as noted in HPI Physical exam (Primary Care) Vital Signs: Last Vital Signs Temp 98.1 F 03/01/25 13:29 Pulse 104 H 03/01/25 13:29 BP 144/65 H 03/01/25 13:29 Pulse Ox 98 03/01/25 13:29 Oxygen Delivery Method Room Air 03/01/25 13:29 Tobacco/Smoking Status: Tobacco use Status Tobacco use date assessed 03/01/25 03/01/25 13:25 Patient Tobacco Use Status Never used Tobacco 03/01/25 13:25 PHQ-9: PHQ-9 Score PHQ-9: Total score 1 03/01/25 13:28 Thrive Assessment: Date of Thrive Assessment Date Thrive assessed 03/01/25 03/01/25 13:25 Currently or been in a relationship where the following occur: No concerns reported Narrative Physical Exam General: Well-appearing, in no acute distress. Reports a weight loss of 2 pounds after starting a diet. Vital signs: Blood pressure noted to be 144, patient expresses concern about high blood pressure. HEENT: Normocephalic, atraumatic. PERRLA, EOMI. Conjunctiva clear, sclera anicteric. Oropharynx clear, mucous membranes moist. TMs intact bilaterally. Reports dental issues, tooth pain worsening. Neck: Supple, no lymphadenopathy, no thyromegaly, no JVD or carotid bruits. Cardiovascular: RRR, normal S1/S2, no murmurs, rubs, or gallops. Peripheral pulses 2+ and symmetric. Reports swelling in feet, possibly related to medication. No edema noted on exam. Respiratory: Lungs clear to auscultation bilaterally, no wheezes, rales, or rho nchi. Normal effort. Abdomen: Soft, non-tender, non-distended. Normoactive bowel sounds. No hepatosplenomegaly, no masses. MSK: Full range of motion, no joint swelling or deformity. Reports knee pain, especially in cold weather, uses a knee pad for relief. Skin: Warm, dry, intact. No rashes, lesions, or pallor. Neuro: Alert and oriented x3. Cranial nerves II-XII intact. Strength 5/5 throughout. Sensation intact. Reflexes 2+ symmetric. Normal coordination and gait. Psych: Appropriate mood and affect. Normal judgment and insight. Office Procedures Flu Questionnaire Does the patient have a severe egg allergy?: No Does the patient have severe life threatening allergies?: No Does the patient have a fever or illness today?: No Has the patient ever had Guillain-Kendrick Syndrome?: No Has the patient ever had any past reaction to a flu shot?: No Immunizations Fluarix [id number] (PF) 45 mcg (15 mcg x 3)/0.5 mL IM syringe Performing Provider: Lee Becerra MD Per[facility] Documented (not given) by: Alize Gonzalez CMA on 03/01/25 13:34 Reason Not Given: Patient Refused Coding Level of Care Code Est Pt Level 4 (79143) Diagnoses Hypertension I10 Diabetes mellitus type 2, controlled, without complications E11.9 Arthritis of knee M17.10 Assessment & Plan Assessment & Plan (1) Hypertension: Code(s): I10 - Essential (primary) hypertension Category: Medical (2) Diabetes mellitus type 2, controlled, without complications: Code(s): E11.9 - Type 2 diabetes mellitus without complications Category: Medical (3) Arthritis of knee: Code(s): M17.10 - Unilateral primary osteoarthritis, unspecified knee Plan Consent Patient was informed and verbally consented to the use of an ambient scribe for clinic note documentation during this visit. Plan 1. Essential Hypertension - The current losartan regimen will be changed. - A prescription for Losartan 100 mg / hydrochlorothiazide 12.5 mg once daily was provided. - The patient was advised to continue monitoring her blood pressure. 2. Type 2 Diabetes Mellitus - Continue Metformin 1000 mg twice daily. - The patient was instructed to discard her glipizide medication. 3. Hyperlipidemia - Continue atorvastatin. 4. Knee Pain - A prescription for an diclofenac gel 1% for knee pain will be sent. - Advised to use a knee pad for support, especially in cold weather. 5. Disability Evaluation - Agreed to sign paperwork for a disabled parking permit. Discussion Notes I discussed the patient's concern about her elevated blood pressure reading of 144 mmHg. To improve her blood pressure control, I explained that I am changing her medication to a combination pill of Losartan 100 mg and hydrochlorothiazide 12.5 mg to be taken once daily. I advised her to continue monitoring her blood pressure at home. We reviewed her current medications, and I instructed her to continue atorvastatin and her current dose of metformin. I advised her to discard her unused glipizide medication, as it is no longer part of her treatment plan. I sent a new prescription for her knee pain but informed her that insurance may not cover it. I also agreed to complete the paperwork she brought for a disabled parking permit. Patient Instructions - Stop taking your current losartan pills. - Start taking the new combination pill, Losartan 100 mg with hydrochlorothiazide 12.5 mg, once a day for your blood pressure. - Keep checking your blood pressure at home. - Continue taking Metformin 1000 mg twice a day for your diabetes. - Continue taking your atorvastatin for cholesterol. - Throw away the glipizide medication you have at home. - Use a knee pad for support, especially when it gets cold. - A new prescription for your knee pain was sent to your pharmacy. Medical Decision Making The patient is a 74-year-old female here for management of her chronic conditions. She was concerned about an elevated blood pressure reading of 144 mmHg on her current losartan regimen. Given her history of intolerance to amlodipine causing peripheral edema, antihypertensive therapy was intensified by switching to a combination product rather than adding a calcium channel vahe. I have prescribed Losartan 100 mg / hydrochlorothiazide 12.5 mg once daily to achieve better blood pressure control and will have the patient monitor her readings at home to assess efficacy. Her diabetes is managed on Metformin 2000 mg daily. The patient was advised to discard her unused glipizide to reduce polypharmacy and risk of side effects. She will continue her atorvastatin for hyperlipidemia. For her knee pain, a prescription was sent, with the patient being aware that insurance might not provide coverage, and conservative measures like using a knee pad were encouraged. I also agreed to complete disability paperwork for a parking permit as per her request. Total time spent caring for the patient today was 30 minutes. This includes time spent before the visit reviewing the chart, time spent documenting, and time spent reviewing laboratory results, diagnostic imaging, medications, performing a medically necessary evaluation, counseling on diagnoses, care coordination Orders: Orders Influenza [id number] Immunization Today Z23 - Encounter for immunization Medications: New losartan-hydrochlorothiazide 100-12.5 mg 1 tab PO DAILY 30 tabs 0RF diclofenac sodium 1% apply to single knee, ankle, foot; for foot includes sole/toes/top of foot 4 grams topical QID 100 grams 0RF
[2025-03-01 13:29] VITALS: BP 144/65; PULSE 104; TEMP 36.7; O2SAT 98
--- OUTSIDE RECORDS SUMMARY | 2025-03-01 17:12 | XMS_ITS | Patient Health Record ---
Author Organization [facility] Address [address] [place] [address] Care Team Providers Care Slot Attendant Name Role Phone Niraj Anna MD Primary Care Provider [phone] Allergies Allergen (clinical drug ingredient) Drug/Non Drug [...] W/U Status Risk Notes Problem Mixed hyperlipidemia (414247554) Mixed hyperlipidemia (E78.2) Active confirmed Problem Primary insomnia (8669073) Primary insomnia (F51.01) Active confirmed Problem Gastroesophageal reflux disease (699747707) GERD without esophagitis (K21.9) Active confirmed Problem Essential hypertension (23715058) Essential (primary) hypertension (I10) Active confirmed Problem Polyneuropathy due to type 2 diabetes mellitus (086870652) Type 2 diabetes mellitus with diabetic polyneuropathy, without long-term current use of insulin (E11.42) Active confirmed Problem Type 2 diabetes mellitus with other specified complication, unspecified whether terminal operations manager insulin use (E11.69) Active confirmed Problem Screening procedure (05663592) Due for screening (Z13.9) Active confirmed Encounters Encounter Location Date Provider Diagnosis [facility] [address] [facility], [place] [id number] 03/09/2024 Niraj Anna [facility] [address] [facility] [id number] 03/11/2024 Niraj Anna [facility] [address] [facility] [id number] 03/11/2024 Niraj Anna [facility] [address] [facility] [place] [id number] 03/16/2024 Niraj Anna Plan Of Treatment Future [...] Insured Coverage Start Date Coverage End Date [id number] [place] [place] [address] [address] [place], [place] [id number] [phone] Mimi Vallejo Self - patient is the insured Medical (General) History Medical History History ICD Code diabetes high cholesterol hypertension acid reflux insomnia neuropathy [place] in 2025 Surgical History Surgery Date(Month/Year) C section 1986 Hospitalization History Reason Date(Month/Year) 3 child 1973,1983, 1986 hypertension 2020
--- OUTSIDE RECORDS SUMMARY | 2025-03-01 17:13 | XMS_ITS | Patient Health Record ---
Author Organization [facility] Billing Info Address [address] [place] [address] Care Team Providers Care Medicaid Plan Compliance Director Name Role Phone Sinan Kenney Primary Care Provider SINAN Olivas Unavailable [phone] Allergies Allergen (clinical drug ingredient) Drug/Non Drug [...] Problem Status W/U Status Risk Notes Problem 625815101 Overweight (E66.3) Active confirmed Problem 135144151 Mixed hyperlipid emia (E78.2) Active confirmed Problem 589533439 Dietary counseli ng and surveillance (Z71.3) Active confirmed Problem 67172307 Essential hypertension (I10) Active confirmed Problem 474330475 Chronic insomnia (F51.04) Active confirmed Problem 373305267 Gastroesophageal reflux disease without esophagitis (K21.9) Active confirmed Problem 836312210 BMI 28.0-28.9,ad ult (Z68.28) Active confirmed Problem 97701431 Lipoma of scalp (D17.0) Active confirmed Problem 930477303 Edema of both fe et (R60.0) Active confirmed Problem Diabetic peripheral neuropathy associated with type 2 diabetes mellitus (2136408106023 ) Type 2 diabetes mellitus with diabetic neuropathy, without long-term current use of insulin (E11.40) Active confirmed Problem 325595239 Osteopenia of multiple sites (M85.89) Active confirmed Problem 46947711 Type 2 diabetes mellitus with other specified complication, without long-term current use of insulin (E11.69) Active confirmed Plan Of Treatment Future Test Test Name Order Date Hemoglobin A1c ([id number]) 01/05/2024 Comp. Metabolic Panel (14) ([id number]) Insurance Providers Payer Name Payer Address Payer Phone Subscriber Number Group Number Insured Name Patient Relationship to Insured Coverage Start Date Coverage End Date A[employer] MED ADVANTAGE CHOICE HMO [address] [address] [place], [place] [id number] GenevieveMimi Self - patient is the insured Medical (General) History Medical History History ICD Code HTN DM II DM Neuropathy HLD HTN Osteopenia GERD
--- OUTSIDE RECORDS SUMMARY | 2025-03-01 17:14 | XMS_ITS | Encounter Summary ---
Author Organization [facility] Address [address] [place] [address] Care Team Providers Care Project Design Engineer Name Role Phone JenniferZenia fletcheralberto HAMILTON Primary Care Provider + Pravin Davis MD Unavailable Encounter Details Date Type Department Care Team (Late st Contact Info) Description 09/08/2024 Scanned Document [facility] [address] [phone] Primary Care, Scan Social History Tobacco Use [...] on filedocumented in this encounter Care Teams Project Design Engineer Relationship Specialty Start Date End Date Chiki Jarquin DO [address] [place] [address] PCP - General Internal Medicine 09/10/24 Pravin Davis MD [address] [place] [address] Primary Dock[facility] Cardiovascular Disease 11/18/24 documented as of this encounter
--- OUTSIDE RECORDS SUMMARY | 2025-03-01 17:14 | XMS_ITS | Clinical Summary ---
Author Organization [facility] Address [address] [place] [address] Care Team Providers Care Oceanographer Assistant Name Role Phone Unavailable Primary Care Provider [...] 01/11/2025 3:00 PM PDT Office Visit Dentists [address] [phone] Dexter Quintero DDS 01/05/2025 10:30 AM PDT Office Visit Dentists [address] [address] [place] [address] Dexter Quintero DDS 12/21/2024 2:00 PM PDT Office Visit Dentists [address] [phone] Dexter Quintero DDS 12/16/2024 1:15 PM PDT Office Visit Dentists [address] [address] [place] [address] Michelle Graves RDH 12/15/2024 10:00 AM PDT Office Visit Dentists of [address] [phone] Dexter Quintero DDS from Last 3 Months [...] Upcoming Encounters Date Type Department Care Team ([facility] Contact Info) Description 03/22/2025 10:30 AM PST Office Visit Dentists of [address] [phone] Michelle Graves, [facility] [address] [facility] [address] [place] [address] Health Maintenance Due Date Last Done Comments [...] - ADULT Routine 12/15/2024 10:00 AM PDT DATA MANAGEMENT FOUR BITEWING XRAYS Routine 10:00 AM PDT NEW PATIENT INTRAORAL - PERIAPICAL FIRST RADIOGRAPHIC IMAGE Routine 12/15/2024 10:00 AM PDT DATA MANAGEMENT CBCT Routine 12/15/2024 10:00 AM PDT ORAL [...] from Last 3 Months Insurance [facility]
--- OUTSIDE RECORDS SUMMARY | 2025-03-01 17:14 | XMS_ITS | Patient Health Record ---
Author Organization [employer] [facility] [employer] [facility] Address [address] [place] [address] Care Team Providers Care Incident Manager Name Role Phone Chiki Jarquin Primary Care Provider Sujata Santos Unavailable [phone] Allergies No Known Allergies Results Component Value Reference Range Flag Notes Comp Metabolic Panel w/eGFR 73294 Reviewed date:2024 01:53:00 PM Interpretation:glucose 125 Performing Lab:1, , [address] [place], [address] Catie Maier M.D. Notes/Report: Received Date: 0; [...] PM Interpretation: Normal Performing Lab:NL1, , [address] [place], [address] Catie Maier M.D. Notes/Report: Received Date: [id number] 0; 0; 0; 0; 0 FASTING:YES PATIENT [...] 01:53:00 PM Interpretation:7.6 Performing Lab:NL1, , [address] [place], [address] Catie Maier M.D. Notes/Report: Received Date: [id number] 0; 0; 0; 0; 0 FASTING:YES PATIENT [...] diabetes for children. Lipid Panel w/refl LDL 02800 Reviewed date:2024 01:53:00 PM Interpretation: Normal Performing Lab:NL1, , [address] [place], [address] Catie Maier M.D. Notes/Report: Received Date: [id number] 0; 0; 0; 0; 0 FASTING:YES PATIENT [...] LDL-C. Lewis SS et al. ARMAND. 2013;310(19): 2017-6013 (http://education.[employer]/faq/GWD049) CHOL/HDLC RATIO 3.1 <5.0 (calc) N NON HDL CHOLESTEROL 109 <130 mg/dL (calc) N For patients with diabetes plus 1 major ASCVD risk factor, treating to a non-HDL-C goal of <100 mg/dL (LDL-C of <70 mg/dL) is considered a therapeutic option. Urinalysis IH Reviewed date:09/03/2024 11:28:25 AM Interpretation:Normal Performing Lab: Notes/Report: Normal Exp. Date 02/01/2025 Lot No. [id number] Leuko Negative Nitrite Negative Urobilinogen 0.2 Protein Negative pH 6.0 Blood Negative Sp. Gr. 1.010 Ketone Negative Biliruben Negative Glucose 100 mg/dl Reason For Referral Reason chest pain Diagnosis 1 Chest pain (R07.9) Diagnosis 2 Long QT interval (I4 5.81) Diagnosis 3 Congestive heart dis ease (I50.9) Diagnosis 4 Left axis deviation (R94.31) Referral Organization [facility] Referring Provider First Name Chiki Referring Provider Last Name Britton Referring Provider Speciality Internal M edicine Referred Provider [facility] Referred Provider Specialty Cardiology General Notes [place] Referral Firearms Expert olman, Roxann 09/07/2024 02:12:09 PM > faxed referral medical summary progress note labs noEKG [phone], pernell, support 09/07/2024 14:23:00 PM>, ReferralPoint: Referral for , [facility] no auth required, pernell, support 09/07/2024 14:23:00 PM>, [facility]: Referral Recommendations Sent to Patient , [facility] , [address] , [facility], [id number] , , , pernell, support 09/10/2024 14:26:00 PM>, [facility] 09/10/24 02:15 PM: Patient Reviewed Link, pernell, support 09/15/2024 14:23:00 PM>, [facility] 09/15/24 02:17 PM: Patient Confirmed Appt Scheduled, pernell, support 09/20/2024 10:39:00 AM>, [facility] 09/20/24 09:55 AM: Patient opted out of SMS communication., pernell, support 10/20/2024 15:51:42 PM>, [facility] Summary, [facility] 09/07/24 01:13 PM: Patient Sent Specialist Recommendation , [facility] , [address] , [facility], [address] , , , [facility] 09/10/24 01:13 PM: [...] perception of literacy I read well in: Guamanian Albanian, 08/09/2024 ES Tobacco Control (Standard) Tobacco use: Nonsmoker Health Literacy How confident are yo u filling out medical forms by yourself? 1 Extremely 08/09/2024 ES How do you like To Learn : all of them, 08/09/2024 ES Language Spoken Language Spoken Albanian, Guamanian 025 ES // Guamanian is 1st language Problems Problem Type SNOMED Code ICD Code Onset Dates Problem Status W/U Status Risk Notes Problem Body mass index 30.00 to 34.99 (279049252669127 ) Body mass index (BMI) 33.0-33.9, adult (Z68.33) Active confirmed Problem Body mass index 30.00 to 34.99 (081703371692392 ) Body mass index (BMI) 34.0-34.9, adult (Z68.34) Active confirmed Problem Hypertension (38557500) Hypertension (I10) Active confirmed Problem Long QT syndrome (3794666) Long QT interval (I45.81) Active confirmed Problem Congestive heart disease (32364226) Congestive heart disease (I50.9) Active confirmed Problem Left axis deviation (01897584) Left axis deviation (R94.31) Active confirmed Problem Type II diabetes mellitus without complication (772705177) DM type 2, goal HbA1c < 7% (E11.9) Active confirmed Vital Signs Temperature 98.5 degrees Fahrenheit 09/03/2024 Respiratory Rate 16 /min 09/03/2024 Oximetry 98 % 09/03/2024 Blood pressure diastolic 85 mm Hg 09/03/2024 Height 57 in 09/03/2024 Blood pressure systolic 138 mm Hg 09/03/2024 Weight 156.4 lbs 09/03/2024 BMI 33.84 kg/m2 09/03/2024 Encounters Encounter Location Date Provider Diagnosis [facility] of [address] [address] 08/09/2024 Chiki Jarquin DM type 2, goal HbA1 c < 7% E11.9 [facility] of [address] [address] 08/10/2024 Chiki Jarquin [address] [address] 08/20/2024 Chiki Jarquin [address] [address] 2024 Chiki Jarquin [address] [address] 09/13/2024 Chiki Jarquin [facility] [address] 10/15/2024 Chiki Jarquin [address] [id number] [address] 10/21/2024 Chiki Jarquin [address] [address] 11/16/2024 Chiki Jarquin [address] [address] 11/18/2024 Chiki Jarquin [address] [address] 12/13/2024 Chiki Jarquin Hypertension I10 and DM type 2, goal HbA1c < 7% E11.[address] [address] 09/03/2024 Chiki Jarquin Chest pain R07.9 ; Congestive heart disease I50.9 ; Left axis deviation R94.31 ; Long QT interval I45.81 ; Hypertension I10 ; Body mass index (BMI) 33.0-33.9, adult Z68.33 and Dysuria R30.[address] [address] 08/09/2024 Chiki Jarquin Encounter for behavioral health [...] Treatment Pending Test Test Name Order Date Microalbumin,Coila Ur (w/creat) 6517 11/2024 Cologuard 10/22/2024 Insurance Providers Payer Name Payer Address Payer Phone Subscriber Number Group Number Insured Name Patient Relationship to Insured Coverage Start Date Coverage End Date [facility] - Medical [address] [place] [address] [id number] Mimi Vallejo Self - patient is the insured [facility] Medicare Adv PPO - [address] [place] [address] [id number] Mimi Vallejo Self - patient is the insured Medical (General) History Hospitalization History Reason Date(Month/Year) HTN
--- OUTSIDE RECORDS SUMMARY | 2025-03-01 17:14 | XMS_ITS | Clinical Summary ---
Author Organization [facility] Address [address] [place] [address] Care Team Providers Care Hydrogen Plant Operations Manager Name Role Phone Chiki Jarquin DO Primary Care Provider [phone] Pravin Davis MD Unavailable Allergies Active Allergy [...] 11/16/2024 Primary hypertension 11/16/2024 Mixed hyperlipidemia 11/16/2024 Family History Medical History Relation Name Comments [...] 50+ (1 of 1 - PCV) 08/24/2001 RSV Vaccine 50 years and old er and Patients (1 - Risk 50-74 years 1-dose series) 08/24/2001 Zoster (Shingles) Vaccine (1 of 2) 08/24/2001 DXA Bone Density (Females,Ag es 65 and older) 08/24/2016 Influenza Vaccine 12/03/2024 COVID-19 Vaccine ( - 2023-2 5 season) 2025 Hepatitis B Vaccines Aged Out No long er eligible based on patient's age to complete this topic Insurance [facility] MEDICARE Care Teams Hydrogen Plant Operations Manager Relationship Specialty Start Date End Date Chiki Jarquin DO [address] [place], [place] [phone] PCP - General Internal Medicine 09/10/24 Pravin Davis MD [address] [place] [address] Primary Mechanical And Auto Body Car Checker Cardiovascular Disease 11/18/24
--- OUTSIDE RECORDS SUMMARY | 2025-03-01 17:14 | XMS_ITS | Encounter Summary ---
Author Organization [facility] Address [address] [place] [address] Care Team Providers Care Screedman Name Role Phone Unavailable Primary Care Provider Unavailabl e Prior Encounters Date Type Department Care Team Description 01/11/2025 3:00 PM PDT Office Visit Dentists [address] [address] Dexter Quintero DDS 01/05/2025 10:30 AM PDT Office Visit Dentists [address] [address] Dexter Quintero DDS 12/21/2024 2:00 PM PDT Office Visit Dentists [address] [address] Dexter Quintero DDS 12/16/2024 1:15 PM PDT Office Visit Dentists [address] [address] Michelle Graves [facility] 12/15/2024 10:00 AM PDT Office Visit Dentists [address] [address] Dexter Quintero DDS 10/09/2022 11:30 AM PDT Office Visit [facility] [address] [facility] [place] [address] Ana Maria Pennington DMD Last Filed Vital [...] Upcoming Encounters Date Type Department Care Team ([facility] st Contact Info) Description 03/22/2025 10:30 AM PST Office Visit [facility] [place] [address] [facility] [place] [address] Michelle Graves, [facility] [address] [place] [address] Procedures Procedure Name Priority Date/Time Associated Diagnosis [...] - ADULT Routine 12/15/2024 10:00 AM PDT ASSOCIATE PROFESSOR OF VIOLIN FOUR BITEWING XRAYS Routine 10:00 AM PDT NEW PATIENT INTRAORAL - PERIAPICAL FIRST RADIOGRAPHIC IMAGE Routine 12/15/2024 10:00 AM PDT ASSOCIATE PROFESSOR OF VIOLIN CBCT Routine 12/15/2024 10:00 AM PDT ORAL [...] DENTOGNOSTICS Visit Diagnoses Not on file Insurance [facility] HMO
--- OUTSIDE RECORDS SUMMARY | 2025-03-01 17:14 | XMS_ITS | Clinical Summary ---
Author Organization [facility] Address [address] [place] [address] Phone Care Team Providers Care Tar Heater Operator Name Role Phone Chiki Jarquin DO Primary Care Provider [phone] Social History Tobacco Use Types Packs/Day Years [...] topic Insurance [employer] MEDICARE Care Teams Tar Heater Operator Relationship Specialty Start Date End Date Chiki Jarquin DO [address] [place] [address] PCP - General Internal Medicine 10/06/24
== END 2025-03-01 13:47 | disposition home or self-care (01) ==
LOC: HO.HMCFMS 13:23
PROVIDERS: PCP Student in an Organized Health Care Education/Training Program; Visit Provider Student in an Organized Health Care Education/Training Program
DX: I10 Essential (primary) hypertension (principal); E11.9 Type 2 diabetes mellitus without complications; M17.10 Unilateral primary osteoarthritis, unspecified knee; Z23 Encounter for immunization

== ENCOUNTER → 2025-03-01 13:22 | Outpatient (BNVA) | payer OTHER, SELFPAY | PROVIDERS: PCP Student in an Organized Health Care Education/Training Program; Visit Provider Student in an Organized Health Care Education/Training Program | DX: Z28.21 Immunization not carried out because of patient refusal (principal); I10 Essential (primary) hypertension; E11.9 Type 2 diabetes mellitus without complications; M17.10 Unilateral primary osteoarthritis, unspecified knee | CPT/HCPCS: 90471; 96127 ==

== ENCOUNTER 2025-03-02 10:18 | Outpatient (AMB) | payer MEDICARE, SELFPAY ==
[2025-03-02 11:17] VITALS: BMI 33.8
--- NOTE | 2025-03-02 11:17 | A.OFFVIS_ITS ---
VS Expanded 03/02/25 11:17 03/08/25 21:17 Height 4 ft 8.6 in 4 ft 8.6 in Weight 154 lb 1.65 oz 154 lb BMI 33.8 33.8 Intake Visit Reasons: Type 2 diabetes mellitus without complications Allergies empagliflozin (From Jardiance) Allergy (Mild, Verified 03/07/25 11:02) swollen lips gabapentin Allergy (Mild, Verified 03/07/25 11:02) swollen lips Nutrition Presentation Details: PT presents for MNT for T2DM Diet review, Pt reports having followed diet modifications int he past with good results, [place] and is taking her time to re adjust. Looking forward to making modifications BS Monitoring Most Recent Diabetes Results: Microalb/Creat Ratio, (<30) 67.2 ug/mg cr H 02/16/25 Cholesterol, (<200) 221 mg/dL H 02/02/25 HDL Cholesterol, (>40) 45 mg/dL 02/02/25 Triglycerides, (<150) 197 mg/dL H 02/02/25 Creatinine, (0.5-1.4) 0.64 mg/dL 02/02/25 BUN, (9-16) 9 mg/dL 02/02/25 Sodium, (135-145) 139 mmol/L 02/02/25 Potassium, (3.3-5.1) 3.9 mmol/L 02/02/25 Chloride, (96-108) 105 mmol/L 02/02/25 Carbon Dioxide, (22-29) 25 mmol/L 02/02/25 Calcium, (8.4-10.2) 9.9 mg/dL 02/02/25 AST, (5-31) 23 U/L 02/02/25 ALT, (0-31) 22 U/L 02/02/25 Total Protein, (6.5-8.0) 7.6 g/dL 02/02/25 Albumin, (3.5-5.0) 4.7 g/dL 02/02/25 JZS-Ujrjvkz-Qm.Jeor Equation Height: 4 ft 8.6 in Weight: 154 lb Resting Metabolic Rate: 1076.17 Calculated Activity Level: Sedentary Calories Needed to Maintain Weight: 1291.40 Diagnosis Nutrition problem #1: excessive energy intake As related to (etiology) #1: diagnosis As evidenced by (sign/symptom) #1: high BMI [facility] Medical History (Updated 03/07/25 @ 11:34 by Ai Dodd DPM) PVD (peripheral vascular disease) Diabetes mellitus type 2 with complications Chronic GERD without esophagitis Diabetic neuropathy GERD (gastroesophageal reflux disease) Hyperlipidemia Hypertension Diabetes mellitus type 2, controlled, without complications Family History Father No problems noted. Mother Stroke Social History Housing: House Alcohol intake: current Alcohol intake frequency: holidays/special occasions only Patient Tobacco Use Status: Never used Tobacco service: No Current occupational status: retired Cognitive needs: Yes (cane) Hearing needs: No Vision needs: Yes (rx glasses) Assessment & Plan Assessment & Plan (1) Diabetes mellitus type 2 with complications: Code(s): E11.8 - Type 2 diabetes mellitus with unspecified complications Category: Medical Plan: current wt: 70 kg (03/29 ) est kcal needs as per MSJ: 3000-4673 est protein needs as per 1 g/kg BW: 70 est fluid needs as per 30 ml/kg BW: 2100 Recommended fiber > 12 g /day and gradually increase up to 25-28 g /day or as tolerated Nutrition topics discussed : Reviewed (R), Pt verbalized understanding (V) , not applicable (N/A) R, : Healthy Plate Method Concept: R, : Carbohydrates: food sources of carbohydrates, relationship of carbohydrates to blood glucose, fatty liver GI health. Recommended total amount of carbohydrates per meals and snack. Differences between simple carbohydrates and complex carbohydrates R, : Lean protein foods including vegan , vegetarian sources of protein. Benefits of protein (including but not limited to healing, nutritional value , benefits in weight loss, glucose control R, : Fats : Source of fats, benefits of fats. Difference between saturated and unsaturated fats. Saturated fats and its contribution to inflammation R, : Fiber: food sources and role of fiber in the diet (including but not limited to its role as a prebiotic, benefits in constipation, role in IBS , role in glucose control and cholesterol level) R, : Hydration: role of hydration and prevention of dehydration or over hydration. Foods and water content. R, V, N/A: Vitamins and Minerals in foods and supplements R, V, N/A: Interpreting food labels, including serving size, macronutrients, vitamins, minerals, allergens, ingredient list , % daily value Patient Instructions: Work on reducing on sugar added (pastries, cookies, similar) Reduce total carb to 30 g at meal following healthy plate method - have 3 meals/day Coding Level of Care Code Nutr Indiv Intake (36712) Diagnoses Diabetes mellitus type 2 with complications E11.8 Time Spent (min) 30
--- OUTSIDE RECORDS SUMMARY | 2025-03-02 12:48 | XMS_ITS | Clinical Summary ---
Author Organization [facility] Address [address] [place] [address] Care Team Providers Care Manager Actuarial Name Role Phone Unavailable Primary Care Provider [...] 01/11/2025 3:00 PM PDT Office Visit Dentists [address] [address] Dexter Quintero DDS 01/05/2025 10:30 AM PDT Office Visit Dentists [place] [address] [place] [address] Dexter Quintero DDS 12/21/2024 2:00 PM PDT Office Visit Dentists [address] [address] Dexter Quintero DDS 12/16/2024 1:15 PM PDT Office Visit Dentists [place] [address] [place] [address] Michelle Graves RDH 12/15/2024 10:00 AM PDT Office Visit Dentists of [address] [phone] Dexter Quintero DDS from Last 3 Months [...] Upcoming Encounters Date Type Department Care Team ([facility] Contact Info) Description 03/22/2025 10:30 AM PST Office Visit Dentists of [address] [phone] Michelle Graves, [facility] [address] [facility] [address] [place] [address] Health Maintenance Due Date Last Done Comments [...] - ADULT Routine 12/15/2024 10:00 AM PDT AIRCRAFT ORDNANCE SYSTEMS MECHANIC FOUR BITEWING XRAYS Routine 10:00 AM PDT NEW PATIENT INTRAORAL - PERIAPICAL FIRST RADIOGRAPHIC IMAGE Routine 12/15/2024 10:00 AM PDT AIRCRAFT ORDNANCE SYSTEMS MECHANIC CBCT Routine 12/15/2024 10:00 AM PDT ORAL [...] Result DENTOGNOSTICS from Last 3 Months [facility]
--- OUTSIDE RECORDS SUMMARY | 2025-03-02 12:48 | XMS_ITS | Clinical Summary ---
Author Organization [facility] Address [address] [place] [address] Phone Care Team Providers Care C D Reactor Operator Name Role Phone Chiki Jarquin DO Primary Care Provider [phone] Social History Tobacco Use Types Packs/Day Years [...] topic Insurance [employer] MEDICARE Care Teams C D Reactor Operator Relationship Specialty Start Date End Date Chiki Jarquin DO [address] [place] [address] PCP - General Internal Medicine 10/06/24
--- OUTSIDE RECORDS SUMMARY | 2025-03-02 12:48 | XMS_ITS | Clinical Summary ---
Author Organization [facility] Address [address] [place] [address] Care Team Providers Care Shoe Packer Name Role Phone Chiki Jarquin DO Primary Care Provider [phone] Pravin Davis MD Unavailable Allergies Active Allergy [...] [facility] MEDICARE Care Teams Shoe Packer Relationship Specialty Start Date End Date Chiki Jarquin DO [address] [place], [place] [phone] PCP - General Internal Medicine 09/10/24 Pravin Davis MD [address] [place] [address] Primary Apron Cleaner Cardiovascular Disease 11/18/24
--- OUTSIDE RECORDS SUMMARY | 2025-03-02 12:48 | XMS_ITS | Encounter Summary ---
Author Organization [facility] Address [address] [place] [address] Care Team Providers Care Coal Sample Tester Name Role Phone JenniferZenia [email or web address] HAMILTON Primary Care Provider + Pravin Davis MD Unavailable Encounter Details Date Type Department Care Team (Late st Contact Info) Description 09/08/2024 Scanned Document [facility] Heart [facility] Vascular [address] [address] Primary Care, Scan Social History Tobacco Use [...] on filedocumented in this encounter Care Teams Coal Sample Tester Relationship Specialty Start Date End Date Chiki Jarquin DO [address] [place] [address] PCP - General Internal Medicine 09/10/24 Pravin Davis MD [address] [place] [address] Primary Management Assistant Cardiovascular Disease 11/18/24 documented as of this encounter
--- OUTSIDE RECORDS SUMMARY | 2025-03-02 12:48 | XMS_ITS | Encounter Summary ---
Author Organization [facility] Address [address] [place] [address] Care Team Providers Care Production Operations Engineer Name Role Phone Unavailable Primary Care Provider Unavailabl e Prior Encounters Date Type Department Care Team Description 01/11/2025 3:00 PM PDT Office Visit Dentists [address] [address] Dexter Quintero DDS 01/05/2025 10:30 AM PDT Office Visit Dentists [address] [address] Dexter Quintero DDS 12/21/2024 2:00 PM PDT Office Visit Dentists [address] [address] Dexter Quintero DDS 12/16/2024 1:15 PM PDT Office Visit Dentists [address] [address] Michelle Graves [facility] 12/15/2024 10:00 AM PDT Office Visit Dentists [address] [address] Dexter Quintero DDS 10/09/2022 11:30 AM PDT Office Visit [facility] [address] [facility] [place] [address] Ana Maria Pennington DMD Last Filed Vital [...] Upcoming Encounters Date Type Department Care Team ([facility] st Contact Info) Description 03/22/2025 10:30 AM PST Office Visit [facility] [place] [address] [facility] [place] [phone] Michelle Graves, [facility] [address] [place] [address] Procedures Procedure Name Priority Date/Time Associated Diagnosis [...] - ADULT Routine 12/15/2024 10:00 AM PDT ASSISTANT SPA MANAGER FOUR BITEWING XRAYS Routine 10:00 AM PDT NEW PATIENT INTRAORAL - PERIAPICAL FIRST RADIOGRAPHIC IMAGE Routine 12/15/2024 10:00 AM PDT ASSISTANT SPA MANAGER CBCT Routine 12/15/2024 10:00 AM PDT ORAL [...] DENTOGNOSTICS Visit Diagnoses Not on file Insurance [facility] HMO
[2025-03-08 21:17] VITALS: BMI 33.8
== END 2025-03-02 11:57 | disposition home or self-care (01) ==
LOC: HO.ENCR 10:19
PROVIDERS: PCP Student in an Organized Health Care Education/Training Program; Visit Provider Dietitian, Registered
DX: E11.8 Type 2 diabetes mellitus with unspecified complications (principal)

== ENCOUNTER → 2025-03-02 10:18 | Outpatient (BNVA) | payer MEDICARE, SELFPAY | PROVIDERS: PCP Student in an Organized Health Care Education/Training Program; Visit Provider Dietitian, Registered | DX: E11.8 Type 2 diabetes mellitus with unspecified complications (principal); E11.40 Type 2 diabetes mellitus with diabetic neuropathy, unspecified; Z71.3 Dietary counseling and surveillance | CPT/HCPCS: 97802 ==

== ENCOUNTER 2025-03-07 10:33 | Outpatient (AMB) | payer OTHER, SELFPAY ==
--- OUTSIDE RECORDS SUMMARY | 2023-10-20 04:15 | XMS_ITS ---
Author Organization [employer] Address [address] [place] [address] Care Team Providers Care Turret Punch Press Operator Name Role Phone Wilfrido SUNG, Niraj Primary Care Provider [phone] Edson Garces PA-C REASON FOR VISIT 3m fasting labs Encounters Encounter Location Date Provider Diagnosis [facility] [address] [place] [id number] 10/20/2023 Edson Garces Plan Of Treatment No Information Progress Notes * Mimi ALBRECHTDOB:1950 (74 yo F)Acc No.[id number]:10/20/2023 UNLOCKED PROGRESS NOTE Patient: Mimi Gleason Provider: Solange Garces PA-C :1950 A ge:73 Y S ex:Female Date:10/20/2023 Address:[facility] [place] [facility] [id number] Pcp:Niraj Anna MD Subjective: * Chief Complaints: * 3 m fasting labs Objective: Past Vitals:* 07/21/2023 BP:sittin/59mm Hg, RR:1 6/min, Pulse:sittin/min, Temp:oral:97.3F, Ht:56in, Wt:148.2lbs, BMI:33.22Index, Oxygen Sat:Room Air:98%, Pain Scale:01-10 * Electronic signature of Vlad Garces PA-C, PA-C on 03/07/2025 at 11:51 AM LIFE SKILLS COORDINATOR Sign off status: Pending * Provider: Solange Garces PA-C Date: 0 10/20/2023 Generated for Anjali madison/Lv/Isabelle on: 1 05/07/2024 11:51 AM LIFE SKILLS COORDINATOR
--- OUTSIDE RECORDS SUMMARY | 2023-11-13 03:27 | XMS_ITS ---
Author Organization [facility] Billing Info Address [address] [place], [place] [address] Care Team Providers Care Snack Foods Mixer Operator Name Role Phone Sinan Kenney Primary Care Provider SINAN Olivas Unavailable [phone] REASON FOR VISIT [employer] SIDNEY Encounters Encounter Location Date Provider Diagnosis [id number] [facility] [address] [address] [place], [place] [id number] 11/13/2023 SINAN KENNEY Plan Of Treatment No Information Progress Notes * Mimi ALBRECHTDOB:1950 (73 yo F)Acc No.[id number]:11/13/2023 Patient: Mimi BENTLEY :1950 A ge:73 Y S ex:Female Address:[address], [place], [address] * true * Date: Generated for Printi ng/Faxing/eTransmitting on: 05/07/2024 11:50 AM SUPPLY OFFICER
--- OUTSIDE RECORDS SUMMARY | 2023-11-17 04:10 | XMS_ITS ---
Author Organization [facility] Billing Info Address [address] [place], [place] [address] Care Team Providers Care Draw Off Worker Name Role Phone Sinan Kenney Primary Care Provider UnavailSINAN Vanegas Unavailable [phone] REASON FOR VISIT PA approved Medications Medication SIG (Take, Route, Frequency, Duration) Notes Start Date End Date Status Rybelsus 7 MG 1 tablet at least 30 minutes before first food, beverage or other oral medicine of the day Orally Once a day for 90 days Rybelsus 3mg started as sample; PA Approved; Rx #: [id number] 11/12/2023 Active Encounters Encounter Location Date Provider Diagnosis [id number] [facility] [address] [address] [place], [place] [address] 11/17/2023 SINAN KENNEY Type 2 diabetes mellitus [...] started as sample; PA Approved; Rx #: [id number] Progress Notes * Mimi ALBRECHTDOB:1950 (73 yo F)Acc No.[id number]:11/17/2023 Patient: Mimi BENTLEY :1950 A ge:73 Y S ex:Female Address:[address] [place] [address], [place], [address] * Refills Refill Rybelsus Tablet, 7 MG, Orally, 90, 1 tablet at least 30 minutes before first food, beverage or other oral medicine of the day, Once a day, 90 days, Refills=1 * true * Date: Generated for Anjali madison/Lv/Estivensmitting on: 05/07/2024 11:51 AM ELECTRONIC SCIENCE TEACHER
--- OUTSIDE RECORDS SUMMARY | 2023-11-19 06:06 | XMS_ITS ---
Author Organization [facility] Billing Info Address [address] [place], [place] [address] Care Team Providers Care Silk Screen Repairer Name Role Phone Sinan Kenney Primary Care Provider SINAN Olivas Unavailable [phone] REASON FOR VISIT Rybelsus and refill for [...] Active Encounters Encounter Location Date Provider Diagnosis [id number] [facility] [address] [address] [place], [place] [address] 11/19/2023 SINAN KENNEY Type 2 diabetes mellitus [...] started as sample; PA Approved; Rx #: [id number] Progress Notes * Mimi ALBRECHTDOB:1950 (73 yo F)Acc No.[id number]:11/19/2023 Patient: Mimi BENTLEY :1950 A ge:73 Y S ex:Female Address:[address] [place] [address], [place], [address] * Refills Refill Glucose Test Strips - [...] * Date: Generated for Anjali madison/Lv/eTransmitting on: 05/07/2024 11:49 AM THERMOSTATIC CONTROLS SUPERVISOR
--- OUTSIDE RECORDS SUMMARY | 2023-12-03 09:15 | XMS_ITS ---
Author Organization [facility] Billing Info Address [address] [place], [place] [address] Care Team Providers Care Curriculum And Assessment Coordinator Name Role Phone Sinan Ken[place] Primary Care Provider UnavailSINAN Vanegas Unavailable [phone] DOMINIC SHANKS Unavailable [phone] REASON FOR VISIT leg pain ..vfj 701225 Encounters Encounter Location Date Provider Diagnosis [id number] [place] [address] [facility] [address] IH [address] [place], [place] [address] 12/03/2023 DOMINIC SHANKS Plan Of Treatment No Information Progress Notes * Mimi ALBRECHTDOB:1950 (74 yo F)Acc No.[id number]:12/03/2023 PROGRESS NOTE Patient: Mimi BENTLEY Provider: MOSHE Pace :1950 A ge:73 Y S ex:Female Date:12/03/2023 C HN#:[id number] Address:[address], [place]-[id number] Pcp:Sinan Kenney Patient's Default Facility:[address] [place] [address] [facility] Subjective: * Chief Complaints: * 1 . Leg pain ..vfj 779517. * Medical History: Objective: * Vitals: Assessment: Plan: * Treatment: * Care Plan Details* * This progress note has not b een verified nor is it considered complete until locked and signed by the provider. Sign off status: Pending * Provider: MOSHE Pace Date: 0 12/03/2023 Generated for Anjali madison/Lv/Isabelle on: 05/07/2024 11:51 AM RADIOLOGICAL TECHNOLOGIST
--- OUTSIDE RECORDS SUMMARY | 2023-12-04 08:06 | XMS_ITS ---
Author Organization [facility] Billing Info Address [address] [place], [place] [address] Care Team Providers Care Performance Improvement Consultant Name Role Phone Sinan Ken[place] Primary Care Provider Unavailabl SINAN Godinez Unavailable [phone] REASON FOR VISIT elevated b/p Encounters Encounter Location Date Provider [facility] [address] [address] [place], [place] [address] 12/04/2023 SINAN KENNEY Plan Of Treatment No Information Progress Notes * Mimi ALBRECHTDOB:1950 (73 yo F)Acc No.[id number]:12/04/2023 Patient: Mimi BENTLEY :1950 A ge:73 Y S ex:Female Address:[address], [place], [address] * true * Date: Generated for Printi ng/Fajoyg/eTransmitting on: 05/07/2024 11:50 AM BELT LACER
--- OUTSIDE RECORDS SUMMARY | 2023-12-04 08:15 | XMS_ITS ---
Author Organization [facility] Billing Info Address [address] [place], [place] [address] Care Team Providers Care Technologies Division Chair Name Role Phone Unruly Kenney Primary Care Provider Unavailabl e UNRULY KENNEY Unavailable [phone] DOMINIC SHANKS Unavailable [phone] Allergies Allergen (clinical drug ingredient) Drug/Non Drug Allergy documented on EMR Reaction Allergy Type Onset Date Status empagliflozin Jardiance nausea/vomiting Drug Allergy Active trazodone Trazodone intolerance Drug Allergy Activ e Reason For Referral Reason eval and treat Diagnosis 1 Left lumbar radiculo chuy (M54.16) Referral Organization [id number] Referring Provider First Name DOMINIC Referring Provider Last Name DIMITRIS Referring Provider Speciality Nurse Prac titioner Referred Provider [facility] Referred Provider Specialty Physical The rapy General Notes KRISTI JACOBS 01:23:31 PM >eval and treat [facility] Clinical Notes KRISTI JACOBS 02:47:05 PM >left message for patient to call and schedule an appointment with specialist, KRISTI VICENTE 12/11/2023 10:27:43 AM >rerouted per patientJULES MELISSA 12/11/2023 10:29:43 AM >left message for patient to call and schedule an appointment with specialist Referral Priority Routine REASON FOR VISIT Lt glut / leg pain x 3/d w/ radiculapathy [id number] Medications Medication SIG (Take, Route, Frequency, Duration) [...] 12/04/2023 Encounters Encounter Location Date Provider Diagnosis [id number] [address] [address] [place], [place] [id number] 12/04/2023 DOMINIC SHANKS Left lumbar radiculopathy M54.16 [...] 12/04/2023, eval and treat, [facility] [place] Next Appt Details Follow Up: prn, Reason: Progress Notes * Mimi ALBRECHTDOB:1950 (73 yo F)Acc No.[id number]:12/04/2023 PROGRESS NOTE Patient: Mimi BENTLEY Provider: MOSHE Pace :1950 A ge:73 Y S ex:Female Date:12/04/2023 C #:[id number] Address:[address] [place] [address], [id number] Pcp:Unruly Kenney Patient's Default Facility:[address] [place] [address] [facility] Subjective: * Chief Complaints: * L t glut / leg pain x 3/d w/ radiculapathy [id number] * HPI: F irst Point of Contact [...] or a close contact traveled outside the [facility] and you are now ill? N o [...] pain. Pt has a pending trip to [place]. * Medical History: * Surgical History: N [...] ast Orders: L ab:Comp. 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 Increased pain in standing/walking position. Aggravated by rolling over in bed. No hx of similar problems. Pt with chronic mild bilateral low back pain. Pt has a pending trip to [place]. First Point of Contact Screening Do any [...]
--- OUTSIDE RECORDS SUMMARY | 2023-12-08 04:49 | XMS_ITS ---
Author Organization [facility]ician [facility] Billing Info Address [address] [place], [place] [address] Care Team Providers Care Installation And Repair Technician Name Role Phone Sinan Kenney Primary Care Provider SINAN Olivas Unavailable [phone] REASON FOR VISIT New Referral Encounters Encounter Location Date Provider [facility] [address] [address] [place], [place] [phone] 12/08/2023 SINAN KENNEY Plan Of Treatment No Information Progress Notes * Mimi ALBRECHTDOB:1950 (73 yo F)Acc No.[id number]:12/08/2023 Patient: Mimi BENTLEY :1950 A ge:73 Y S ex:Female Address:[address], [place], [address] * true * Date: Generated for Printi ng/Fajoyg/eTransmitting on: 05/07/2024 11:50 AM CHIEF SUBSTATION OPERATOR
--- OUTSIDE RECORDS SUMMARY | 2023-12-18 04:03 | XMS_ITS ---
Author Organization [facility] Billing Info Address [address] [place], [place] [address] Care Team Providers Care [place] Name Role Phone Unruly Kenney Primary Care Provider UNRULY Olivas [facility] [phone] REASON FOR VISIT Refill Medications Medication SIG (Take, Route, Frequency, Duration) Notes Start Date End Date Status Amlodipine Besylate 10 MG 1 tablet Orally Once a day Active Encounters Encounter Location Date Provider Diagnosis 048468[facility] [address] [address] [place], [place] [phone] 12/18/2023 UNRULY KENNEY Essential hypertensi on I10 [...] Notes * AMBROCIO, MimiDOB:1950 (73 yo F)Acc No.[id number]:12/18/2023 Patient: Mimi BENTLEY :1950 A ge:73 Y S ex:Female Address:[facility] [address], [place], [address] * Refills Refill Amlodipine Besylate Tablet, 10 MG, Orally, 1 tablet, Once a day Stop Telmisartan-HCTZ Tablet, 80-12.5 MG, Orally, 1 tablet, Once a day in AM for high blood pressure * true * Date: Generated for Anjali madison/Lv/Isabelle on: 05/07/2024 11:49 AM LINE HAUL DRIVER
--- OUTSIDE RECORDS SUMMARY | 2024-01-14 09:00 | XMS_ITS ---
Author Organization [facility] Billing Info Address [address] [place], [place] [address] Care Team Providers Care Enamel Shader Name Role Phone Sinan Kenney Primary Care Provider SINAN Olivas [facility] [phone] Allergies Allergen (clinical drug ingredient) Drug/Non Drug [...] smoker Encounters Encounter Location Date Provider Diagnosis [id number] [facility] [address] [address] [place], [place] [phone] 01/14/2024 SINAN KENNEY Assessments Encounter Date Diagnosis (ICD Code) Assessment Notes Treatment Notes Treatment Clinical Notes Section Notes 01/14/2024 Other A Healthy Lifestyle: Care Instructions material was published Plan Of Treatment Treatment Notes Assessment Notes Other A Healthy Lifestyle: Care Instructions material was published Progress Notes * Mimi ALBRECHTDOB:1950 (74 yo F)Acc No.[id number]:01/14/2024 PROGRESS NOTE Patient: Mimi BENTLEY Provider: Tamar KENNEY MD :1950 A ge:73 Y S ex:Female Date:01/14/2024 C HN#:[id number] Address:[facility] [address], [place] [id number] Pcp:Sinan Kenney Patient's Default Facility:[address] [place] [address] [facility] Subjective: * Chief Complaints: * [...] 0 01/14/2024 Generated for Anjali madison/Lv/Estivensmitting on: 05/07/2024 11:50 AM DRAFTER COMMERCIAL History and Physical Notes * HPI (History [...] now ill? : No OFFICE USE (If [employer] is not in place, provide patients age 2 years and older with a facemask to wear over their mouth and nose while in the practice.):: Patient answered no to all questions OR only answered yes to question 1 No further action needed : 01/14/2024
--- OUTSIDE RECORDS SUMMARY | 2024-02-11 02:26 | XMS_ITS ---
Author Organization [facility] Physician Servic [facility] Billing Info Address [address] [place], [place] [address] Care Team Providers Care Process Architect Name Role Phone Sinan Kenney Primary Care Provider UnavailSINAN Vanegas Unavailable [phone] REASON FOR VISIT reschedule Encounters Encounter Location Date Provider Diagnosis [id number] [facility] [address] [address] [place], [place] [phone] 02/11/2024 SINAN KENNEY Plan Of Treatment No Information Progress Notes * Mimi ALBRECHTDOB:1950 (73 yo F)Acc No.[id number]:02/11/2024 Patient: Mimi BENTLEY :1950 A ge:73 Y S ex:Female Address:[facility] [address], [place], [address] * true * Date: Generated for Printi ng/Fajoyg/eTransmitting on: 05/07/2024 11:50 AM 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
[2025-03-07 11:00] VITALS: BMI 34.5
--- NOTE | 2025-03-07 11:00 | A.OFFVIS_ITS ---
Vital Signs 03/07/25 11:00 Height 4 ft 8.6 in Weight 157 lb BMI 34.5 Intake Visit Reasons: Type II diabetes Intake Note: Mimi is a 74 year old female who presents today as a new patient for a diabetic foot exam. Pt reports her glucose is currently at 124 and her last reported a1c was 7.6%. She experiences numbness and tingling with burning in her feet due to her neuropathy. She denies any previous history of wounds or amputations to her feet. Patient has low back pain without any injuries and she is not taking gabapentin at this time Allergies empagliflozin (From [employer]) Allergy (Mild, Verified 03/07/25 11:02) swollen lips gabapentin Allergy (Mild, Verified 03/07/25 11:02) swollen lips Medication List - Last Reconciled 03/07/25 by Ai Dodd DPM atorvastatin (Lipitor) 20 mg PO DAILY blood sugar diagnostic (True Metrix Glucose Test Strip) As directed TID blood-glucose meter (Accu-Chek Guide Glucose Meter) As directed [diabetic shoes and inserts Please provide 1 pair of diabetic shoes and 3 pairs of inserts] diclofenac sodium 1% 4 grams topical QID lancets (FreeStyle Lancets) As directed losartan-hydrochlorothiazide 100-12.5 mg 1 tab PO DAILY metformin 1,000 mg PO BID HPI Comments Details: The patient is a 74-year-old female with a PMH as seen below presenting with peripheral neuropathy and associated symptoms. The neuropathy has been present for approximately three years, with symptoms including numbness, tingling, and cold extremities, worse at night. The patient reports a history of an allergic reaction to gabapentin, characterized by swelling, and has since discontinued its use. She reports using slippers and sandals indoors to prevent injuries, as advised for diabetic patients. Patient has a history of diabetes and states her blood glucose has been well controlled. She states she experiences intermittent cramping to the thighs and back of the calves. She denies any other pedal concerns. [facility] Medical History (Updated 03/07/25 @ 11:34 by Ai Dodd DPM) PVD (peripheral vascular disease) Diabetes mellitus type 2 with complications Chronic GERD without esophagitis Diabetic neuropathy GERD (gastroesophageal reflux disease) Hyperlipidemia Hypertension Diabetes mellitus type 2, controlled, without complications Family History Father No problems noted. Mother Stroke Social History Housing: House Alcohol intake: current Alcohol intake frequency: holidays/special occasions only Patient Tobacco Use Status: Never used Tobacco service: No Current occupational status: retired Cognitive needs: Yes (cane) Hearing needs: No Vision needs: Yes (rx glasses) Review of Systems Const Details: - Neurological: Reports numbness and tingling in the feet, denies numbness in the legs. - Vascular: Reports cold extremities, denies any pain in the ankles. All systems reviewed & are unremarkable except as noted in HPI and below Physical Exam Vital Signs: BMI result Body Mass Index 34.5 Extrem Other: B/L LE Focused Physical Exam: Derm: Skin supple and turgor WNL. No open lesions, abrasions, or wounds noted. Toenails x10 noted to be WNL. No ecchymosis or discoloration noted. No maceration noted. No clinical signs of infection. Vasc: DP mildly palpable. PT nonpalpable. CFT < 3 secs. Temp gradient warm to cold. Pedal hair absent. No varicosities noted. No edema noted. Neuro: Protective sensations grossly intact to light touch and monofilament testing, although patient reports numbness, tingling, and burning. MSK: Mild tenderness on palpation to the dorsum of the feet in the area of the midtarsal joints. ROM of the forefoot, hindfoot, and ankles WNL. No crepitus or fluctuance noted. Mild HAV noted to the left hallux. Nonantalgic gait unassisted noted. Office Procedures Diabetic Foot Exam G9226 - Diabetic Foot Exam Results Reviewed Results Reviewed: Laboratory Tests 02/02/25 10:23 Random Glucose 128 H Estimat Average Glucose 171 Hemoglobin A1c % 7.6 H Assessment & Plan Assessment & Plan (1) Diabetic neuropathy: Code(s): E11.40 - Type 2 diabetes mellitus with diabetic neuropathy, unspecified Category: Medical (2) Diabetes mellitus type 2 with complications: Code(s): E11.8 - Type 2 diabetes mellitus with unspecified complications Category: Medical (3) PVD (peripheral vascular disease): Code(s): I73.9 - Peripheral vascular disease, unspecified Category: Medical Plan Patient was informed and verbally consented to the use of an ambient scribe for clinic note documentation during this visit. Educated patient on diabetes and the effects on the lower extremities. I discussed with the patient the management of her peripheral neuropathy, including the potential use of Qutenza if symptoms worsen. Patient discontinued use of Gabapentin due to allergic reaction. We also talked about the importance of monitoring her symptoms and considering electrolyte supplementation for cramping. I advised her on the use of diabetic shoes and inserts to prevent foot injuries. We agreed on a follow-up in six months to reassess her condition. - Continue monitoring symptoms of peripheral neuropathy, particularly numbness and tingling, to assess progression. - Consider Qutenza for neuropathic pain management if symptoms worsen. - Continue diabetic management as per PCP. - Recommended electrolyte supplementation, such as Pedialyte, to address cramping potentially related to electrolyte imbalance. - Prescribed diabetic shoes and inserts to prevent foot injuries. - Patient is to wear supportive shoe gear and is to avoid barefoot walking. RTC in 6 months. Orders: Orders AMB Diabetic Foot Exam Today E11.40 - Type 2 diabetes mellitus with diabetic neuropathy, unspecified, E11.8 - Type 2 diabetes mellitus with unspecified complications Medications: New [diabetic shoes and inserts] Please provide 1 pair of diabetic shoes and 3 pairs of inserts 1 ea 0RF Diabetic neuropathy E11.40 - Type 2 diabetes mellitus with diabetic neuropathy, unspecified, E11.8 - Type 2 diabetes mellitus with unspecified complications Coding Level of Care Code New Pt Level 4 (16369) Diagnoses Diabetic neuropathy E11.40 Diabetes mellitus type 2 with complications E11.8 PVD (peripheral vascular disease) I73.9 CPT Codes Diabetic Foot Exam - CPT: G9226 - Diabetic Foot Exam ([id number]) Time Spent (min) 50
--- OUTSIDE RECORDS SUMMARY | 2025-03-07 12:50 | XMS_ITS | Patient Health Record ---
Author Organization [facility] Billing Info Address [address] [place] [address] Care Team Providers Care Forestry Aid Name Role Phone Sinan Kenney Primary Care Provider SINAN Olivas Unavailable [phone] Allergies Allergen (clinical drug ingredient) Drug/Non Drug [...] Problem Status W/U Status Risk Notes Problem 474030047 Overweight (E66.3) Active confirmed Problem 691245529 Mixed hyperlipid emia (E78.2) Active confirmed Problem 042862897 Dietary counseli ng and surveillance (Z71.3) Active confirmed Problem 63371329 Essential hypertension (I10) Active confirmed Problem 798189334 Chronic insomnia (F51.04) Active confirmed Problem 666333832 Gastroesophageal reflux disease without esophagitis (K21.9) Active confirmed Problem 747032826 BMI 28.0-28.9,ad ult (Z68.28) Active confirmed Problem 36650432 Lipoma of scalp (D17.0) Active confirmed Problem 213161867 Edema of both fe et (R60.0) Active confirmed Problem Diabetic peripheral neuropathy associated with type 2 diabetes mellitus (4450939195368 ) Type 2 diabetes mellitus with diabetic neuropathy, without long-term current use of insulin (E11.40) Active confirmed Problem 173332376 Osteopenia of multiple sites (M85.89) Active confirmed Problem 21580902 Type 2 diabetes mellitus with other specified complication, without long-term current use of insulin (E11.69) Active confirmed Plan Of Treatment Future Test Test Name Order Date Hemoglobin A1c ([id number]) 01/05/2024 Comp. Metabolic Panel (14) ([id number]) Insurance Providers Payer Name Payer Address Payer Phone Subscriber Number Group Number Insured Name Patient Relationship to Insured Coverage Start Date Coverage End Date [employer] MED ADVANTAGE CHOICE HMO [address] [address] [place], [place] [id number] GenevieveMimi Self - patient is the insured Medical (General) History Medical History History ICD Code HTN DM II DM Neuropathy HLD HTN Osteopenia GERD
--- OUTSIDE RECORDS SUMMARY | 2025-03-07 12:50 | XMS_ITS | Patient Health Record ---
Author Organization [facility] Address [address] [place] [address] Care Team Providers Care Salvage Mechanic Name Role Phone Niraj Anna MD Primary [...] W/U Status Risk Notes Problem Mixed hyperlipidemia (367037601) Mixed hyperlipidemia (E78.2) Active confirmed Problem Primary insomnia (5146455) Primary insomnia (F51.01) Active confirmed Problem Gastroesophageal reflux disease (739408210) GERD without esophagitis (K21.9) Active confirmed Problem Essential hypertension (73533971) Essential (primary) hypertension (I10) Active confirmed Problem Polyneuropathy due to type 2 diabetes mellitus (588737880) Type 2 diabetes mellitus with diabetic polyneuropathy, without long-term current use of insulin (E11.42) Active confirmed Problem Type 2 diabetes mellitus with other specified complication, unspecified whether long term care pharmacist insulin use (E11.69) Active confirmed Problem Screening procedure (13932806) Due for screening (Z13.9) Active confirmed Encounters Encounter Location Date Provider Diagnosis [facility] [address] [facility], [place] [phone] 03/09/2024 Niraj Anna [facility] [address] [facility], [place] [id number] 03/11/2024 Niraj Anna [facility] [address] [facility], [place] [id number] 03/11/2024 Niraj Anna [facility] [address] [facility], [place] [phone] 03/16/2024 Niraj Anna Plan Of Treatment Future [...] Insured Coverage Start Date Coverage End Date [id number] [place] [address] [address] [place], [place] [id number] [phone] Mimi Vallejo Self - patient is the insured Medical (General) History Medical History History ICD Code diabetes high cholesterol hypertension acid reflux insomnia neuropathy [place] 2020[place], repeat in 2025 Surgical History Surgery Date(Month/Year) C section 1986 Hospitalization History Reason Date(Month/Year) 3 child 1973,1983, 1986 hypertension 2020
--- OUTSIDE RECORDS SUMMARY | 2025-03-07 12:50 | XMS_ITS | Encounter Summary ---
Author Organization [facility] Address [address] [place] [address] Care Team Providers Care Document Specialist Name Role Phone JenniferZenia fletcheralberto HAMILTON Primary Care Provider + Pravin Davis MD Unavailable Encounter Details Date Type Department Care Team (Late st Contact Info) Description 09/08/2024 Scanned Document [facility] [address] [address] Primary Care, Scan Social History Tobacco Use [...] on filedocumented in this encounter Care Teams Document Specialist Relationship Specialty Start Date End Date Chiki Jarquin DO [address] [place] [address] PCP - General Internal Medicine 09/10/24 Pravin Davis MD [address] [place] [address] Primary Fisher Tr[employer] Net Cardiovascular Disease 11/18/24 documented as of this encounter
--- OUTSIDE RECORDS SUMMARY | 2025-03-07 12:50 | XMS_ITS | Clinical Summary ---
Author Organization [facility] Address [address] [place] [address] Care Team Providers Care Shade Cutter Name Role Phone Chiki Jarquin DO Primary Care Provider [phone] Pravin Davis MD Unavailable Allergies Active Allergy [...] patient's age to complete this topic Insurance [facility] MEDICARE Care Teams Shade Cutter Relationship Specialty Start Date End Date Chiki Jarquin DO [address] [place], [place] [phone] PCP - General Internal Medicine 09/10/24 Pravin Davis MD [address] [place] [address] Primary Toilet Products Molder Cardiovascular Disease 11/18/24
--- OUTSIDE RECORDS SUMMARY | 2025-03-07 12:51 | XMS_ITS | Encounter Summary ---
Author Organization [facility] Health Address [address] [place] [address] Care Team Providers Care Under Presser Name Role Phone Unavailable Primary Care Provider Unavailabl e Prior Encounters Date Type Department Care Team Description 01/11/2025 3:00 PM PDT Office Visit [facility] [address] [address] Dexter Quintero DDS 01/05/2025 10:30 AM PDT Office Visit [facility]ists [address] [address] Dexter Quintero DDS 12/21/2024 2:00 PM PDT Office Visit [facility]ists [address] [address] Dexter Quintero DDS 12/16/2024 1:15 PM PDT Office Visit [facility]ists [address] [address] Michelle Graves [facility] 12/15/2024 10:00 AM PDT Office Visit [facility]ists [address] [address] Dexter Quintero DDS 10/09/2022 11:30 AM PDT Office Visit [facility] [address] [facility] [address] [place] [address] Ana Maria Pennington DMD Last Filed Vital [...] Upcoming Encounters Date Type Department Care Team ([facility] st Contact Info) Description 03/22/2025 10:30 AM PST Office Visit [facility] [place] [facility] [address] [facility] [address] [place] [address] Michelle Graves, [facility] [address] [place] [address] Procedures Procedure Name Priority Date/Time Associated Diagnosis [...] - ADULT Routine 12/15/2024 10:00 AM PDT CERTIFIED JUVENILE PROBATION OFFICER FOUR BITEWING XRAYS Routine 10:00 AM PDT NEW PATIENT INTRAORAL - PERIAPICAL FIRST RADIOGRAPHIC IMAGE Routine 12/15/2024 10:00 AM PDT CERTIFIED JUVENILE PROBATION OFFICER CBCT Routine 12/15/2024 10:00 AM PDT ORAL [...] DENTOGNOSTICS Visit Diagnoses Not on file Insurance [facility] HMO
--- OUTSIDE RECORDS SUMMARY | 2025-03-07 12:51 | XMS_ITS | Clinical Summary ---
Author Organization [facility] Health Address [address] [place] [address] Care Team Providers Care Transformer Tester Name Role Phone Unavailable Primary Care Provider [...] 01/11/2025 3:00 PM PDT Office Visit Dentists [address] [address] Dexter Quintero DDS 01/05/2025 10:30 AM PDT Office Visit [facility] [address] [address] [place] [address] Dexter Quintero DDS 12/21/2024 2:00 PM PDT Office Visit [facility]ists [address] [address] Dexter Quintero DDS 12/16/2024 1:15 PM PDT Office Visit [facility] [address] [address] [place] [address] Michelle Graves RDH 12/15/2024 10:00 AM PDT Office Visit [facility] of [address] [phone] Dexter Quintero DDS from Last 3 Months [...] Upcoming Encounters Date Type Department Care Team ([facility] Contact Info) Description 03/22/2025 10:30 AM PST Office Visit [facility] of [address] [phone] Michelle Graves, [facility] [address] [facility] [address] [place] [address] Health Maintenance Due Date Last Done Comments [...] - ADULT Routine 12/15/2024 10:[address]DUCTOR FOUR BITEWING XRAYS Routine 10:00 AM PDT NEW PATIENT INTRAORAL - PERIAPICAL FIRST RADIOGRAPHIC IMAGE Routine 12/15/2024 10:[address]DUCTOR CBCT Routine 12/15/2024 10:00 AM PDT ORAL [...] Result DENTOGNOSTICS from Last 3 Months [facility]
--- OUTSIDE RECORDS SUMMARY | 2025-03-07 12:51 | XMS_ITS | Patient Health Record ---
Author Organization [employer] [facility] [employer] [facility] Address [address] [place] [address] Care Team Providers Care Infrastructure Consultant Name Role Phone Chiki Jarquin Primary Care Provider Sujata Santos Unavailable [phone] Allergies No Known Allergies Results Component Value Reference Range Flag Notes Comp Metabolic Panel w/eGFR 85245 Reviewed date:2024 01:53:00 PM Interpretation:glucose 125 Performing Lab:1, , [address] [place], [address] Catie Maier M.D. Notes/Report: Received Date: 0; [...] PM Interpretation: Normal Performing Lab:NL1, , [address] [place], [address] Catie Maier M.D. Notes/Report: Received Date: [id number] 0; 0; 0; 0; 0 FASTING:YES PATIENT [...] 01:53:00 PM Interpretation:7.6 Performing Lab:NL1, , [address] [place], [address] Catie Maier M.D. Notes/Report: Received Date: [id number] 0; 0; 0; 0; 0 FASTING:YES PATIENT [...] diabetes for children. Lipid Panel w/refl LDL 98426 Reviewed date:2024 01:53:00 PM Interpretation: Normal Performing Lab:NL1, , [address] [place], [address] Catie Maier M.D. Notes/Report: Received Date: [id number] 0; 0; 0; 0; 0 FASTING:YES PATIENT [...] LDL-C. Lewis SS et al. ARMAND. 2013;310(19): 9591-7621 (http://education.Network [employer]/faq/TVD118) CHOL/HDLC RATIO 3.1 <5.0 (calc) N NON HDL CHOLESTEROL 109 <130 mg/dL (calc) N For patients with diabetes plus 1 major ASCVD risk factor, treating to a non-HDL-C goal of <100 mg/dL (LDL-C of <70 mg/dL) is considered a therapeutic option. Urinalysis IH Reviewed date:09/03/2024 11:28:25 AM Interpretation:Normal Performing Lab: Notes/Report: Normal Exp. Date 02/01/2025 Lot No. [id number] Leuko Negative Nitrite Negative Urobilinogen 0.2 Protein Negative pH 6.0 Blood Negative Sp. Gr. 1.010 Ketone Negative Biliruben Negative Glucose 100 mg/dl Reason For Referral Reason chest pain Diagnosis 1 Chest pain (R07.9) Diagnosis 2 Long QT interval (I4 5.81) Diagnosis 3 Congestive heart dis ease (I50.9) Diagnosis 4 Left axis deviation (R94.31) Referral Organization [facility] Referring Provider First Name Chiki Referring Provider Last Name Britton Referring Provider Speciality Internal M edicine Referred Provider [facility] Referred Provider Specialty Cardiology General Notes [place] Referral Insurance Law Specialist olman, Roxann 09/07/2024 02:12:09 PM > faxed referral medical summary progress note labs noEKG [phone], pernell, support 09/07/2024 14:23:00 PM>, [facility]: Referral for , [facility] no auth required, pernell, support 09/07/2024 14:23:00 PM>, [facility]: Referral Recommendations Sent to Patient , [facility] , [address] , [facility], [address] , , , pernell, support 09/10/2024 14:26:00 PM>, [facility] 09/10/24 02:15 PM: Patient Reviewed Link, pernell, support 09/15/2024 14:23:00 PM>, [facility] 09/15/24 02:17 PM: Patient Confirmed Appt Scheduled, pernell, support 09/20/2024 10:39:00 AM>, [facility] 09/20/24 09:55 AM: Patient opted out of SMS communication., pernell, support 10/20/2024 15:51:42 PM>, [facility] Summary, [facility] 09/07/24 01:13 PM: Patient Sent Specialist Recommendation , [facility] , [address] , [facility], [address] , , , [facility] 09/10/24 01:13 PM: [...] perception of literacy I read well in: Lithuanian Turkmen, 08/09/2024 ES Tobacco Control (Standard) Tobacco use: Nonsmoker Health Literacy How confident are yo u filling out medical forms by yourself? 1 Extremely 08/09/2024 ES How do you like To Learn : all of them, 08/09/2024 ES Language Spoken Language Spoken Turkmen, Lithuanian 025 ES // Lithuanian is 1st language Problems Problem Type SNOMED Code ICD Code Onset Dates Problem Status W/U Status Risk Notes Problem Body mass index 30.00 to 34.99 (926586507894990 ) Body mass index (BMI) 33.0-33.9, adult (Z68.33) Active confirmed Problem Body mass index 30.00 to 34.99 (018710970634715 ) Body mass index (BMI) 34.0-34.9, adult (Z68.34) Active confirmed Problem Hypertension (02624058) Hypertension (I10) Active confirmed Problem Long QT syndrome (6456653) Long QT interval (I45.81) Active confirmed Problem Congestive heart disease (16985143) Congestive heart disease (I50.9) Active confirmed Problem Left axis deviation (96139031) Left axis deviation (R94.31) Active confirmed Problem Type II diabetes mellitus without complication (517890503) DM type 2, goal HbA1c < 7% (E11.9) Active confirmed Vital Signs Temperature 98.5 degrees Fahrenheit 09/03/2024 Respiratory Rate 16 /min 09/03/2024 Oximetry 98 % 09/03/2024 Blood pressure diastolic 85 mm Hg 09/03/2024 Height 57 in 09/03/2024 Blood pressure systolic 138 mm Hg 09/03/2024 Weight 156.4 lbs 09/03/2024 BMI 33.84 kg/m2 09/03/2024 Encounters Encounter Location Date Provider Diagnosis [facility] of [address] [address] 08/09/2024 Chiki Jarquin DM type 2, goal HbA1 c < 7% E11.9 [facility] of [address] [address] 08/10/2024 Chiki Jarquin [address] [address] 08/20/2024 Chiki Jarquin [address] [address] 2024 Chiki Jarquin [address] [address] 09/13/2024 Chiki Jarquin [place] [address] 10/15/2024 Chiki Jarquin [address] [id number] [address] 10/21/2024 Chiki Jarquin [address] [address] 11/16/2024 Chiki Jarquin [address] [address] 11/18/2024 Chiki Jarquin [address] [address] 12/13/2024 Chiki Jarquin Hypertension I10 and DM type 2, goal HbA1c < 7% E11.[address] [address] 09/03/2024 Chiki Jarquin Chest pain R07.9 ; Congestive heart disease I50.9 ; Left axis deviation R94.31 ; Long QT interval I45.81 ; Hypertension I10 ; Body mass index (BMI) 33.0-33.9, adult Z68.33 and Dysuria R30.[address] [address] 08/09/2024 Chiki Jarquin Encounter for behavioral health [...] Treatment Pending Test Test Name Order Date Microalbumin,[place] [facility] (w/creat) 6517 11/2024 Cologuard 10/22/2024 Insurance Providers Payer Name Payer Address Payer Phone Subscriber Number Group Number Insured Name Patient Relationship to Insured Coverage Start Date Coverage End Date [facility] - Medical [address] [place] [id number] Mimi Vallejo Self - patient is the insured [facility] Medicare Adv PPO - [address] [place] [address] [phone] [id number] Mimi Vallejo Self - patient is the insured Medical (General) History Hospitalization History Reason Date(Month/Year) HTN
--- OUTSIDE RECORDS SUMMARY | 2025-03-07 12:51 | XMS_ITS | Clinical Summary ---
Author Organization [facility] Address [address] [place] [address] Phone Care Team Providers Care Slot Floor Person Name Role Phone Chiki Jarquin DO Primary Care Provider [phone] Social History Tobacco Use Types Packs/Day Years [...] topic Insurance [employer] MEDICARE Care Teams Slot Floor Person Relationship Specialty Start Date End Date Chiki Jarquin DO [address] [place] [address] PCP - General Internal Medicine 10/06/24
== END 2025-03-07 11:26 | disposition home or self-care (01) ==
LOC: HO.HPODS 10:34
PROVIDERS: PCP Student in an Organized Health Care Education/Training Program; Visit Provider Student in an Organized Health Care Education/Training Program
DX: E11.40 Type 2 diabetes mellitus with diabetic neuropathy, unspecified (principal); E11.8 Type 2 diabetes mellitus with unspecified complications; I73.9 Peripheral vascular disease, unspecified
CPT/HCPCS: 99204; G9226

== ENCOUNTER → 2025-03-07 10:33 | Outpatient (BNVA) | payer OTHER, SELFPAY | PROVIDERS: PCP Student in an Organized Health Care Education/Training Program; Visit Provider Student in an Organized Health Care Education/Training Program | DX: E11.40 Type 2 diabetes mellitus with diabetic neuropathy, unspecified (principal); E11.8 Type 2 diabetes mellitus with unspecified complications; I73.9 Peripheral vascular disease, unspecified | CPT/HCPCS: 99202 ==

== ENCOUNTER 2025-03-10 10:26 | Outpatient (AMB) | payer OTHER, SELFPAY ==
--- OUTSIDE RECORDS SUMMARY | 2012-02-05 03:00 | XMS_ITS | Continuity of Care Document ---
Author Organization [facility] Address [address] [place] [address] Phone Care Team Providers Care Chief Ultrasound Technologist Name Role Phone Unavailable Unavailable Unavailable Allergies, Adverse Reactions, Alerts Substance Reaction Status Criticality No Known Allergies Active No Inform ation Medications Medication Instructions Dosage Effective Dates (start - stop) Status Comments Lisinopril 20 mg Tab take 1 tablet (20MG) by ORAL route every day 20 MG - No Longer Active Metformin 500 mg Tab take 1 tablet (500MG) by ORAL route 2 times every day with morning and evening meals 500 MG - No Longer Active Glipizide 5 mg Tab take 1 tablet (5MG) by ORAL route every day before meals 5 MG - No Longer Active Procedures Procedure Date COMPLETE CBC W/AUTO DIFF WBC BASIC METABOLIC PANEL LIPID PANEL GLYCATED HEMOGLOBIN TEST MICROALBUMIN, QUANTITATIVE SPECIMEN HANDLING OFFICE/OUTPATIENT VISIT, [facility] Advance Directives Directive Yes / No Effective Date File Name No Information Encounters Encounter Description Practice Location Reason(s) For Visit Diagnoses Date Provider Providers Copied on Encounter [facility], [address], [place], [id number], [place] tel:[phone] [facility] Labs only (chief complaint) No Information 2 No Information OFFICE/OUTPA TIENT VISIT, [facility], [address], [place], [id number], [place] tel:[phone] [facility] DM/HTN (chief complaint) Diabetes Mellitus Type 2, Uncomplicated Hypertension, BenignObesity 2-201 2 No Information Family History Family Member Type Diagnosis Age At Onset No Information Payers Payer name Insurance type Covered green party ID Authoriza tion(s) No Information Social History Type Description Quantity Date Captured Comments Sex Female Smoking Status No Information Chief Complaint And Reason For Visit From encounter dated '02/05/2012 08:00'. Labs only (chief complaint) Reason For Referral Reason For Referral No Information History Of Present Illness Encounter Date Complaint History Of Prese nt Illness No Information Functional Status Date Functional Assessmen t No Information Instructions Date Instruction Additional Infor mation Take medications as prescribed. Related to Diabetes Mellitus Type 2, Uncomplicated Check glucose daily as directed. Related to Diabetes Mellitus Type 2, Uncomplicated Assessments Type Assessment Date No Information Patient Care Teams Name Effective Dates (start - stop) Status Members No Information
--- OUTSIDE RECORDS SUMMARY | 2022-01-15 09:03 | XMS_ITS | Continuity of Care Document ---
Author Organization [facility] Address [address] [place] [address] Care Team Providers Care Finance Vice President Name Role Phone Rivas OD, Lavender Unavailable Unavailable Advance Directives Directive Yes / No Effective Date File Name No Information Encounters Encounter Description Practice Location Reason(s) For Visit Diagnoses Date Provider Providers Copied on Encounter [facility], [address], [place], [place], [id number], [place] [address] LMO routine exam (chief complaint) No Information Rivas Lavender. [address] [facility], [address], [place], [place], [address], [place]. tel:[phone] Family History Family Member Type Diagnosis Age At Onset No Information Payers Payer name Insurance type Covered libertarian ID Authoriza tion(s) No Information Social History Type Description Quantity Date Captured Comments Sex Female Smoking Status No Information Chief Complaint And Reason For Visit From encounter dated '01/15/2022 14:03'. routine exam (chief complaint). Description: The patient was seen on 02/09/2021 by Candy Evangelista OD for a routine eye exam. No diabetic retinopathy was noted on exam OU. Next DFE recommended by 02/2022 for diabetic monitoring. Reason For Referral Reason For Referral No Information History Of Present Illness Encounter Date Complaint History Of Prese nt Illness routine exam The patient was seen on 02/09/2021 by Candy Evangelista OD for a routine eye exam. No diabetic retinopathy was noted on exam OU. Next DFE recommended by 02/2022 for diabetic monitoring. Functional Status Date Functional Assessmen t No Information Instructions Date Instruction Additional Infor mation No Information Assessments Type Assessment Date No Information Patient Care Teams Name Effective Dates (start - stop) Status Members No Information
--- OUTSIDE RECORDS SUMMARY | 2023-10-20 04:15 | XMS_ITS ---
Author Organization [employer] Address [address] [place] [address] Care Team Providers Care Non Licensed Operator Name Role Phone Wilfrido SUNG, Niraj Primary Care Provider [phone] Edson Garces PA-C REASON FOR VISIT 3m fasting labs Encounters Encounter Location Date Provider Diagnosis [facility] [address] [place] [phone] 10/20/2023 Edson Garces Plan Of Treatment No Information Progress Notes * Mimi ALBRECHTDOB:1950 (74 yo F)Acc No.[id number]:10/20/2023 UNLOCKED PROGRESS NOTE Patient: Mimi Gelason Provider: Solange Garces PA-C :1950 A ge:73 Y S ex:Female Date:10/20/2023 Address:[facility] [place] [facility] [id number] Pcp:Niraj Anna MD Subjective: * Chief Complaints: * 3 m fasting labs Objective: Past Vitals:* 07/21/2023 BP:sittin/59mm Hg, RR:1 6/min, Pulse:sittin/min, Temp:oral:97.3F, Ht:56in, Wt:148.2lbs, BMI:33.22Index, Oxygen Sat:Room Air:98%, Pain Scale:01-10 * Electronic signature of Vlad Garces PA-C, PA-C on 03/10/2025 at 11:29 AM MOLD DESIGNER Sign off status: Pending * Provider: Solange Garces PA-C Date: 0 10/20/2023 Generated for Anjali madison/Lv/Isabelle on: 1 05/10/2024 11:29 AM MOLD DESIGNER
--- OUTSIDE RECORDS SUMMARY | 2023-11-13 03:27 | XMS_ITS ---
Author Organization [facility] Physician Servic es Billing Info Address [address] [place], [place] [address] Care Team Providers Care Armed Security Professional Name Role Phone Sinan Kenney Primary Care Provider SINAN Olivas Unavailable [phone] REASON FOR VISIT Terrancebelsus SIDNEY Encounters Encounter Location Date Provider Diagnosis [id number] [facility] [address] [address] [place], [place] [id number] 11/13/2023 SINAN KENNEY Plan Of Treatment No Information Progress Notes * Mimi ALBRECHTDOB:1950 (73 yo F)Acc No.[id number]:11/13/2023 Patient: Mimi BENTLEY :1950 A ge:73 Y S ex:Female Address:[address], [place], [address] * true * Date: Generated for Printi ng/Faxing/eTransmitting on: 05/10/2024 11:28 AM SPOT CLEANER
--- OUTSIDE RECORDS SUMMARY | 2023-11-17 04:10 | XMS_ITS ---
Author Organization [facility] Billing Info Address [address] [place], [place] [address] Care Team Providers Care Pharmaceutical Worker Name Role Phone Sinan Kenney Primary Care Provider UnavailSINAN Vanegas Unavailable [phone] REASON FOR VISIT PA approved Medications Medication SIG (Take, Route, Frequency, Duration) Notes Start Date End Date Status Rybelsus 7 MG 1 tablet at least 30 minutes before first food, beverage or other oral medicine of the day Orally Once a day for 90 days Rybelsus 3mg started as sample; PA Approved; Rx #: [id number] 11/12/2023 Active Encounters Encounter Location Date Provider Diagnosis [id number] [facility] [address] [address] [place], [place] [address] 11/17/2023 SINAN KENNEY Type 2 diabetes mellitus with other specified complication, without long-term current use of insulin E11.69 Assessments Encounter Date Diagnosis (ICD Code) Assessment Notes Treatment Notes Treatment Clinical Notes Section Notes 11/17/2023 Type 2 diabetes mellitus with other specified complication, without long-term current use of insulin (ICD-10 - E11.69) Plan Of Treatment Medication Medication Name Sig Start Date Stop Date Notes Rybelsus 7 MG 1 tablet at least 30 minutes before first food, beverage or other oral medicine of the day Orally Once a day for 90 days 11/12/2023 Rybelsus 3mg started as sample; PA Approved; Rx #: [id number] Progress Notes * Mimi ALBRECHTDOB:1950 (73 yo F)Acc No.[id number]:11/17/2023 Patient: Mimi BENTLEY :1950 A ge:73 Y S ex:Female Address:[address] [place] [address], [place], [address] * Refills Refill Rybelsus Tablet, 7 MG, Orally, 90, 1 tablet at least 30 minutes before first food, beverage or other oral medicine of the day, Once a day, 90 days, Refills=1 * true * Date: Generated for Anjali madison/Lv/Estivensmitting on: 05/10/2024 11:28 AM RAG WILLOW OPERATOR
--- OUTSIDE RECORDS SUMMARY | 2023-11-19 06:06 | XMS_ITS ---
Author Organization [facility] Billing Info Address [address] [place], [place] [address] Care Team Providers Care Deputy Fire Marshal Name Role Phone Sinan Kenney Primary Care Provider SINAN Olivas Unavailable [phone] REASON FOR VISIT Rybelsus and refill for [...] Active Encounters Encounter Location Date Provider Diagnosis [id number] [facility] [address] [address] [place], [place] [address] 11/19/2023 SINAN KENNEY Type 2 diabetes mellitus [...] started as sample; PA Approved; Rx #: [id number] Progress Notes * Mimi ALBRECHTDOB:1950 (73 yo F)Acc No.[id number]:11/19/2023 Patient: Mimi BENTLEY :1950 A ge:73 Y S ex:Female Address:[address] [place] [address], [place], [address] * Refills Refill Glucose Test Strips - [...] Codes: * true * Date: Generated for Anajli madison/Lv/eTransmitting on: 05/10/2024 11:26 AM INSTALL AND REPAIR TECHNICIAN
--- OUTSIDE RECORDS SUMMARY | 2023-12-03 09:15 | XMS_ITS ---
Author Organization [facility] Billing Info Address [address] [place], [place] [address] Care Team Providers Care Floor Framer Name Role Phone Sinan Ken[place] Primary Care Provider UnavailSINAN Vanegas Unavailable [phone] DOMINIC SHANKS Unavailable [phone] REASON FOR VISIT leg pain ..vfj 075096 Encounters Encounter Location Date Provider Diagnosis [id number] [place] [address] [facility] [address]396 IH [address] [place], [place] [address] 12/03/2023 DOMINIC SHANKS Plan Of Treatment No Information Progress Notes * Mimi ALBRECHTDOB:1950 (74 yo F)Acc No.[id number]:12/03/2023 PROGRESS NOTE Patient: Mimi BENTLEY Provider: MOSHE Pace :1950 A ge:73 Y S ex:Female Date:12/03/2023 C HN#:[id number] Address:[address], [id number] Pcp:Sinan Kenney Patient's Default Facility:[address] [place] [address] [facility] Subjective: * Chief Complaints: * 1 . Leg pain ..vfj 673974. * Medical History: Objective: * Vitals: Assessment: Plan: * Treatment: * Care Plan Details* * This progress note has not b een verified nor is it considered complete until locked and signed by the provider. Sign off status: Pending * Provider: MOSHE Pace Date: 0 12/03/2023 Generated for Anjali madison/Lv/Isabelle on: 05/10/2024 11:29 AM MACHINE FILLER
--- OUTSIDE RECORDS SUMMARY | 2023-12-04 08:06 | XMS_ITS ---
Author Organization [facility]ician Servic [facility] Billing Info Address [address] [place], [place] [address] Care Team Providers Care Finance Assistant Name Role Phone Sinan Ken[place] Primary Care Provider Unavailabl SINAN Godinez Unavailable [phone] REASON FOR VISIT elevated b/p Encounters Encounter Location Date Provider [id number] [address] [address] [place], [place] [address] 12/04/2023 SINAN KENNEY Plan Of Treatment No Information Progress Notes * Mimi ALBRECHTDOB:1950 (73 yo F)Acc No.[id number]:12/04/2023 Patient: Mimi BENTLEY :1950 A ge:73 Y S ex:Female Address:[address], [place], [address] * true * Date: Generated for Printi ng/Fajoyg/eTransmitting on: 05/10/2024 11:27 AM MANAGER INVESTIGATIONS
--- OUTSIDE RECORDS SUMMARY | 2023-12-04 08:15 | XMS_ITS ---
Author Organization [facility] Billing Info Address [address] [place], [place] [address] Care Team Providers Care License Registration Examiner Name Role Phone Unruly Kenney Primary Care Provider Unavailabl e UNRULY KENNEY Unavailable [phone] DOMINIC SHANKS Unavailable [phone] Allergies Allergen (clinical drug ingredient) Drug/Non Drug Allergy documented on EMR Reaction Allergy Type Onset Date Status empagliflozin Jardiance nausea/vomiting Drug Allergy Active trazodone Trazodone intolerance Drug Allergy Activ e Reason For Referral Reason eval and treat Diagnosis 1 Left lumbar radiculo chuy (M54.16) Referral Organization [id number] [facility] Referring Provider First Name DOMINIC Referring Provider Last Name DIMITRIS Referring Provider Speciality Nurse Prac titioner Referred Provider [facility] Referred Provider Specialty Physical The rapy General Notes KRISTI JACOBS 01:23:31 PM >eval and treat [place] [facility] Clinical Notes KRISTI JACOBS 02:47:05 PM >left message for patient to call and schedule an appointment with specialist, KRISTI VICENTE 12/11/2023 10:27:43 AM >rerouted per patientJULES MELISSA 12/11/2023 10:29:43 AM >left message for patient to call and schedule an appointment with specialist Referral Priority Routine REASON FOR VISIT Lt glut / leg pain x 3/d w/ radiculapathy [id number] Medications Medication SIG (Take, Route, Frequency, Duration) [...] 12/04/2023 Encounters Encounter Location Date Provider Diagnosis [id number] [address] [address] [place], [place] [id number] 12/04/2023 DOMINIC SHANKS Left lumbar radiculopathy M54.16 [...] 12/04/2023, eval and treat, [facility] [place] Next Appt Details Follow Up: prn, Reason: Progress Notes * Mimi ALBRECHTDOB:1950 (73 yo F)Acc No.[id number]:12/04/2023 PROGRESS NOTE Patient: Mimi BENTLEY Provider: MOSHE Pace :1950 A ge:73 Y S ex:Female Date:12/04/2023 C #:[id number] Address:[address] [place] [address], [id number] Pcp:Unruly Kenney Patient's Default Facility:[address] [place] [address] [facility] Subjective: * Chief Complaints: * L t glut / leg pain x 3/d w/ radiculapathy [id number] * HPI: F irst Point of Contact [...] a close contact traveled outside the [facility] and you are now ill? N [...] pain. Pt has a pending trip to [place]. * Medical History: * Surgical History: N [...] ast Orders: L ab:Comp. 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 Increased pain in standing/walking position. Aggravated by rolling over in bed. No hx of similar problems. Pt with chronic mild bilateral low back pain. Pt has a pending trip to [place]. First Point of Contact Screening Do any [...]
--- OUTSIDE RECORDS SUMMARY | 2023-12-08 04:49 | XMS_ITS ---
Author Organization [facility]ician Servic [facility] Billing Info Address [address] [place], [place] [address] Care Team Providers Care Dairy Management Specialist Name Role Phone Sinan Kenney Primary Care Provider SINAN Olivas Unavailable [phone] REASON FOR VISIT New Referral Encounters Encounter Location Date Provider [facility] [address] [address] [place], [place] [address] 12/08/2023 SINAN KENNEY Plan Of Treatment No Information Progress Notes * Mimi ALBRECHTDOB:1950 (73 yo F)Acc No.[id number]:12/08/2023 Patient: Mimi BENTLEY :1950 A ge:73 Y S ex:Female Address:[address], [place], [address] * true * Date: Generated for Printi ng/Fajoyg/eTransmitting on: 05/10/2024 11:27 AM HEALTH EDUCATION SPECIALIST
--- OUTSIDE RECORDS SUMMARY | 2023-12-18 04:03 | XMS_ITS ---
Author Organization [facility] Billing Info Address [address] [place], [place] [address] Care Team Providers Care Brewery Technician Name Role Phone Unruly Kenney Primary Care Provider UNRULY Olivas [facility] [phone] REASON FOR VISIT Refill Medications Medication SIG (Take, Route, Frequency, Duration) Notes Start Date End Date Status Amlodipine Besylate 10 MG 1 tablet Orally Once a day Active Encounters Encounter Location Date Provider Diagnosis [id number] [address] [address] [place], [place] [id number] 12/18/2023 UNRULY KENNEY Essential hypertensi on I10 Assessments Encounter Date Diagnosis (ICD Code) Assessment Notes Treatment Notes Treatment Clinical Notes Section Notes 12/18/2023 Essential hypertension (ICD-10 - I10) Plan Of Treatment Medication Medication Name Sig Start Date Stop Date Notes Amlodipine Besylate 10 MG 1 tablet Orally Once a day Telmisartan-HCTZ 80-12.5 MG 1 tablet Ora lly Once a day in AM for high blood pressure 11/12/2023 Progress Notes * AMBROCIO MimiDOB:1950 (73 yo F)Acc No.[id number]:12/18/2023 Patient: Mimi BENTLEY :1950 A ge:73 Y S ex:Female Address:[facility] [address], [place], [address] * Refills Refill Amlodipine Besylate Tablet, 10 MG, Orally, 1 tablet, Once a day Stop Telmisartan-HCTZ Tablet, 80-12.5 MG, Orally, 1 tablet, Once a day in AM for high blood pressure * true * Date: Generated for Anjali madison/Lv/Isabelle on: 05/10/2024 11:26 AM OCCASIONAL CAREGIVER
--- OUTSIDE RECORDS SUMMARY | 2024-01-14 09:00 | XMS_ITS ---
Author Organization [facility] Billing Info Address [address] [place], [place] [address] Care Team Providers Care It Project Manager Name Role Phone Sinan Kenney Primary Care Provider SINAN Olivas [facility] [phone] Allergies Allergen (clinical drug ingredient) Drug/Non Drug Allergy documented on EMR Reaction Allergy Type Onset Date Status empagliflozin Jardiance nausea/vomiting Drug Allergy Active trazodone Trazodone intolerance Drug Allergy Activ e REASON FOR VISIT 2 month follow up/LABS/DM Social History Tobacco Use: Social History Observation Description Date Details (start date - stop date) Never Smoker NA - NA Tobacco Status: Question Answer Notes Patient is a never smoker Encounters Encounter Location Date Provider Diagnosis [id number] [facility] [address] [address] [place], [place] [phone] 01/14/2024 SINAN KENNEY Assessments Encounter Date Diagnosis (ICD Code) Assessment Notes Treatment Notes Treatment Clinical Notes Section Notes 01/14/2024 Other A Healthy Lifestyle: Care Instructions material was published Plan Of Treatment Treatment Notes Assessment Notes Other A Healthy Lifestyle: Care Instructions material was published Progress Notes * Mimi ALBRECHTDOB:1950 (74 yo F)Acc No.[id number]:01/14/2024 PROGRESS NOTE Patient: Mimi BENTLEY Provider: Tamar KENNEY MD :1950 A ge:73 Y S ex:Female Date:01/14/2024 C HN#:[id number] Address:[facility] [address], [place] [id number]-[phone] Pcp:Sinan Kenney Patient's Default Facility:[address] [place] [address] MED ASSOC Subjective: * Chief Complaints: * 1 . 2 month follow up/LABS/DM. * HPI: F irst Point of Contact [...] [place] and you are now ill? N o O FFICE USE (If universal masking is not in place, provide patients age 2 years and older with a facemask to wear over their mouth and nose while in the practice.): P atient answered no to all questions OR only answered yes to question 1 N o further action needed 0 01/14/2024 * Medical History: H TN, DM II, DM Neuropathy, HLD, HTN, Osteopenia, GERD. * Family History: M other: . F ather: . * Social History: A lcohol Use Patient d oes not use alcohol T obacco Status Patient is a never smoker M arital Status: . L vin with: spouse. I llicit Drug Use Patient/Family reports: N o illicit drug use C affeine: coffee, per day. D rugs: none. * Allergies: J ardiance: nausea/vomiting - Allergy, Trazodone: intolerance - Side Effects. Objective: * Vitals: Assessment: Plan: * Treatment: * Preventive Medicine: Quality Measures: F all Risk Assessment: Date of Screening Completed: 0 01/14/2024 Increased Fall Risk Factors: N o fall [...] of last dexascan 0 05/05/2021 Osteopenia * Care Plan Details* * This progress note has not b een verified nor is it considered complete until locked and signed by the provider. Sign off status: Pending * Provider: Tamar KENNEY MD Date: 0 01/14/2024 Generated for Anjali madison/Lv/Estivensmitting on: 05/10/2024 11:27 AM CHINCHILLA FARMER History and Physical Notes * HPI (History of Present Illness) Category Sub-Category Detail Notes Category Not es First Point of Contact Screening Do any [...] now ill? : No OFFICE USE (If Collision Hub is not in place, provide patients age 2 years and older with a facemask to wear over their mouth and nose while in the practice.):: Patient answered no to all questions OR only answered yes to question 1 No further action needed : 01/14/2024
--- OUTSIDE RECORDS SUMMARY | 2024-02-11 02:26 | XMS_ITS ---
Author Organization [facility] Billing Info Address [address] [place], [place] [address] Care Team Providers Care Gum Machine Filler Name Role Phone Sinan Kenney Primary Care Provider UnavailSINAN Vanegas Unavailable [phone] REASON FOR VISIT reschedule Encounters Encounter Location Date Provider Diagnosis [id number] [facility] [address] [address] [place], [place] [phone] 02/11/2024 SINAN KENNEY Plan Of Treatment No Information Progress Notes * Mimi ALBRECHTDOB:1950 (73 yo F)Acc No.[id number]:02/11/2024 Patient: Mimi BENTLEY :1950 A ge:73 Y S ex:Female Address:[facility] [address], [place], [address] * true * Date: Generated for Printi ng/Fajoyg/eTransmitting on: 05/10/2024 11:27 AM DRY WALL NAILER
--- NOTE | 2025-03-10 10:33 | A.OFFPC_ITS ---
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 Accompanied by: Self / Same As Patient Allergies empagliflozin (From Jardiance) Allergy (Mild, Verified 03/10/25 10:38) swollen lips gabapentin Allergy (Mild, Verified 03/10/25 10:38) swollen lips Medication List - Last Reconciled 03/10/25 by Lee Becerra MD atorvastatin (Lipitor) 20 mg PO DAILY blood sugar diagnostic (True Metrix Glucose Test Strip) As directed TID blood-glucose meter (Accu-Chek Guide Glucose Meter) As directed [diabetic shoes and inserts Please provide 1 pair of diabetic shoes and 3 pairs of inserts] diclofenac sodium 1% 4 grams topical QID lancets (FreeStyle Lancets) As directed losartan 50 mg PO BID metformin 1,000 mg PO BID Tobacco use date assessed: 03/01/25 Fall risk assessment: No Falls in past year Last assessed Fall Risk: 03/10/25 Dental Screening Dental Screen Date: 03/01/25 HPI HPI Comments History of Present Illness Details History of Present Illness The patient is a 74-year-old female presenting for management of an adverse reaction to a new medication. Essential Hypertension: The patient is being treated for hypertension and reports experiencing adverse effects since starting a new medication, hydrochlorothiazide, approximately six days ago. Her medication regimen included amlodipine, hydrochlorothiazide, and losartan. She brought in her log which shows reasonable blood pressures she stopped taking the medication 4 days ago Type 2 Diabetes Mellitus: The patient is on metformin 1000 mg in the morning and 1000 mg in the afternoon for diabetes. Her A1c is monitored for her condition. Medications: - Metformin 1000 mg in the morning and 1 000 mg in the afternoon - Losartan, 50 mg Hydrochlorothiazide 12 .5 mg combo Past Medical History - Hypertension - Type 2 Diabetes Mellitus -chronic GERD Health Maintenance - The patient's A1c is being monitored f or diabetes management. - A follow-up visit is scheduled in thre e months. [facility] Medical History (Updated 03/07/25 @ 11:34 by Ai Dodd DPM) PVD (peripheral vascular disease) Diabetes mellitus type 2 with complications Chronic GERD without esophagitis Diabetic neuropathy GERD (gastroesophageal reflux disease) Hyperlipidemia Hypertension Diabetes mellitus type 2, controlled, without complications Family History Father No problems noted. Mother Stroke Social History (Updated 03/10/25 @ 10:39 by Blanco Munoz MA) Housing: House Alcohol intake: current Alcohol intake frequency: holidays/special occasions only Patient Tobacco Use Status: Never used Tobacco e-Cigarette/Vaping Use: Never Used Use of substances other than those prescribed or required for medical reasons: No service: No Current occupational status: retired Cognitive needs: Yes (cane) Hearing needs: No Vision needs: Yes (rx glasses) Questionnaire Thrive Questionnaire Date Thrive assessed: 02/02/25 I am a: Patient What is your living situation today?: I have a steady place to live Within the past 12 months, did the food you bought not last and you didn't have the money to get more?: I choose not to answer this question Within the past 12 months, did you worry whether your food would run out before you got money to buy more?: I choose not to answer this question Do you have trouble paying for medicines?: I choose not to answer this question Do you have trouble getting transportation to medical appointments?: I choose not to answer this question Do you have trouble paying your heating and electricity bill?: I choose not to answer this question Do you have trouble taking care of your child, family member or friend?: I choose not to answer this question Do you have trouble with day-to-day activities such as bathing, preparing meals, shopping, managing finances, etc.?: No Are you currently unemployed and looking for a job?: No Are you interested in more education?: No Please select the resources that you would like help with: None Currently or been in a relationship where the following occur: No concerns reported THRIVE Score: 0 J LUIS-7 AMB Questionnaire J LUIS-7 Date J LUIS - 7 assessed: 03/01/25 Source: Developed by Drs. Farnk Jacob, Laura Bahena, Pramod Gustafson and colleagues, with an educational reece from [employer]. Review of Systems Narrative Review of Systems - General: Reports feeling unwell for the past six days since starting a new medication. - General: Patient denies falls. 10-point ROS reviewed and negative except as noted in HPI Physical exam (Primary Care) Vital Signs: Last Vital Signs Temp 97.9 F 03/10/25 10:39 Pulse 96 03/10/25 10:39 Resp 18 03/10/25 10:39 BP 131/66 03/10/25 10:39 Pulse Ox 98 03/10/25 10:39 Oxygen Delivery Method Room Air 03/10/25 10:39 BMI result Body Mass Index 33.2 Tobacco/Smoking Status: Tobacco use Status Tobacco use date assessed 03/01/25 03/10/25 10:33 Patient Tobacco Use Status Never used Tobacco 03/10/25 10:39 e-Cigarette/Vaping Use Never Used 03/10/25 10:41 Thrive Assessment: Date of Thrive Assessment Date Thrive assessed 02/02/25 03/10/25 10:33 Currently or been in a relationship where the following occur: No concerns reported Narrative Physical Exam General: Well-appearing, in no acute distress. Vital signs: Within normal limits. HEENT: Normocephalic, atraumatic. PERRLA, EOMI. Conjunctiva clear, sclera anicteric. Oropharynx clear, mucous membranes moist. TMs intact bilaterally. Neck: Supple, no lymphadenopathy, no thyromegaly, no JVD or carotid bruits. Cardiovascular: RRR, normal S1/S2, no murmurs, rubs, or gallops. Peripheral pulses 2+ and symmetric. No edema. Respiratory: Lungs clear to auscultation bilaterally, no wheezes, rales, or rhonchi. Normal effort. Abdomen: Soft, non-tender, non-distended. Normoactive bowel sounds. No hepatosplenomegaly, no masses. MSK: Full range of motion, no joint swelling or deformity. Normal gait. Skin: Warm, dry, intact. No rashes, lesions, or pallor. Neuro: Alert and oriented x3. Cranial nerves II-XII intact. Strength 5/5 throughout. Sensation intact. Reflexes 2+ symmetric. Normal coordination and gait. Psych: Appropriate mood and affect. Normal judgment and insight. Coding Level of Care Code Est Pt Level 3 (38607) Diagnoses Hypertension I10 Hyperlipidemia E78.5 Diabetes mellitus type 2, controlled, without complications E11.9 Chronic GERD without esophagitis K21.9 Assessment & Plan Assessment & Plan (1) Hypertension: Code(s): I10 - Essential (primary) hypertension Category: Medical (2) Hyperlipidemia: Code(s): E78.5 - Hyperlipidemia, unspecified Category: Medical (3) Diabetes mellitus type 2, controlled, without complications: Code(s): E11.9 - Type 2 diabetes mellitus without complications Category: Medical (4) Chronic GERD without esophagitis: Code(s): K21.9 - Gastro-esophageal reflux disease without esophagitis Category: Medical Plan Consent Patient was informed and verbally consented to the use of an ambient scribe for clinic note documentation during this visit. Plan 1. Essential Hypertension -we will continue losartan 50 mg and add on 50 mg in the afternoon - Hydrochlorothiazide will be discontinued due to adverse effects. - The patient will start losartan 50 mg in the morning and 50 mg in the evening. 2. Type 2 Diabetes Mellitus - The patient will continue her current metformin regimen. - Follow up in three months to reassess. Discussion Notes I discussed with the patient that the hydrochlorothiazide was the likely cause of her not feeling well and that we would stop it. I also reviewed the plan adjust her regimen to losartan 50 mg twice daily for blood pressure management. I reassured the patient and scheduled a follow-up in three months to monitor her response to the new medication plan. Patient Instructions - Stop taking your hydrochlorothiazide medication. - You will now take losartan 50 mg in the morning and another 50 mg at night. - Please return for a follow-up appointment in three months. Medical Decision Making The patient is a 74-year-old female with hypertension and type 2 diabetes who presented with complaints of feeling unwell for six days, which started after beginning a new medication. The symptoms are attributed to an adverse reaction to hydrochlorothiazide. The decision was made to discontinue both hydrochlorothiazide and amlodipine to address the side effects and simplify the regimen. Her antihypertensive therapy will be changed to losartan 50 mg twice daily. Her diabetes management with metformin remains unchanged. A follow-up is planned in three months to evaluate her response to the new treatment plan. Total time spent caring for the patient today was 20 minutes. This includes time spent before the visit reviewing the chart, time spent documenting, and time spent reviewing laboratory results, diagnostic imaging, medications, performing a medically necessary evaluation, counseling on diagnoses, care coordination.. Medications: New losartan 50 mg PO BID 180 tabs 0RF Discontinued losartan-hydrochlorothiazide 100-12.5 mg Discontinued Reason: Doctor's Order 1 tab PO DAILY 30 tabs 0RF
[2025-03-10 10:39] VITALS: BP 131/66; PULSE 96; RESP 18; TEMP 36.6; O2SAT 98; BMI 33.2
--- OUTSIDE RECORDS SUMMARY | 2025-03-10 12:27 | XMS_ITS | Patient Health Record ---
Author Organization [facility] Billing Info Address [address] [place] [address] Care Team Providers Care Senior Adults Director Name Role Phone Sinan Kenney Primary Care Provider SINAN Olivas Unavailable [phone] Allergies Allergen (clinical drug ingredient) Drug/Non Drug [...] Problem Status W/U Status Risk Notes Problem 782293791 Overweight (E66.3) Active confirmed Problem 598465018 Mixed hyperlipid emia (E78.2) Active confirmed Problem 026036686 Dietary counseli ng and surveillance (Z71.3) Active confirmed Problem 64332981 Essential hypertension (I10) Active confirmed Problem 320323875 Chronic insomnia (F51.04) Active confirmed Problem 547809131 Gastroesophageal reflux disease without esophagitis (K21.9) Active confirmed Problem 012505056 BMI 28.0-28.9,ad ult (Z68.28) Active confirmed Problem 29863697 Lipoma of scalp (D17.0) Active confirmed Problem 104208672 Edema of both fe et (R60.0) Active confirmed Problem Diabetic peripheral neuropathy associated with type 2 diabetes mellitus (8029878335953 ) Type 2 diabetes mellitus with diabetic neuropathy, without long-term current use of insulin (E11.40) Active confirmed Problem 644130678 Osteopenia of multiple sites (M85.89) Active confirmed Problem 22493926 Type 2 diabetes mellitus with other specified complication, without long-term current use of insulin (E11.69) Active confirmed Plan Of Treatment Future Test Test Name Order Date Hemoglobin A1c ([id number]) 01/05/2024 Comp. Metabolic Panel (14) ([id number]) Insurance Providers Payer Name Payer Address Payer Phone Subscriber Number Group Number Insured Name Patient Relationship to Insured Coverage Start Date Coverage End Date [employer] MED ADVANTAGE CHOICE HMO [address] [address] [place], [place] [id number] GenevieveMimi Self - patient is the insured Medical (General) History Medical History History ICD Code HTN DM II DM Neuropathy HLD HTN Osteopenia GERD
--- OUTSIDE RECORDS SUMMARY | 2025-03-10 12:27 | XMS_ITS | Patient Health Record ---
Author Organization [facility] Address [address] [place] [address] Care Team Providers Care Custom Furrier Name Role Phone Niraj Anna MD Primary [...] W/U Status Risk Notes Problem Mixed hyperlipidemia (205416631) Mixed hyperlipidemia (E78.2) Active confirmed Problem Primary insomnia (9850290) Primary insomnia (F51.01) Active confirmed Problem Gastroesophageal reflux disease (604672153) GERD without esophagitis (K21.9) Active confirmed Problem Essential hypertension (66918205) Essential (primary) hypertension (I10) Active confirmed Problem Polyneuropathy due to type 2 diabetes mellitus (010387969) Type 2 diabetes mellitus with diabetic polyneuropathy, without long-term current use of insulin (E11.42) Active confirmed Problem Type 2 diabetes mellitus with other specified complication, unspecified whether terminal computer operator insulin use (E11.69) Active confirmed Problem Screening procedure (83105547) Due for screening (Z13.9) Active confirmed Encounters Encounter Location Date Provider Diagnosis [facility] [address] [facility] [place] [id number] 03/11/2024 Niraj Anna [facility] [address] [place], [place] [id number] 03/11/2024 Niraj Anna [facility] [address] [facility] [place] [id number] 03/16/2024 Niraj Anna Plan Of Treatment Future [...] Insured Coverage Start Date Coverage End Date [id number] WM [place] [address] [address] [place], [place] [id number] [phone] Mimi Vallejo Self - patient is the insured Medical (General) History Medical History History ICD Code diabetes high cholesterol hypertension acid reflux insomnia neuropathy [place] 2025 Surgical History Surgery Date(Month/Year) C section 1986 Hospitalization History Reason Date(Month/Year) 3 child 1973,1986 hypertension 2020
--- OUTSIDE RECORDS SUMMARY | 2025-03-10 12:28 | XMS_ITS | Encounter Summary ---
Author Organization [facility] Address [address] [place] [address] Care Team Providers Care Tractor Crane Operator Name Role Phone JenniferZenia fletcheralberto HAMILTON Primary Care Provider + Pravin Davis MD Unavailable Encounter Details Date Type Department Care Team (Late st Contact Info) Description 09/08/2024 Scanned Document [facility] [address] [address] Primary Care, Scan Social History Tobacco Use [...] on filedocumented in this encounter Care Teams Tractor Crane Operator Relationship Specialty Start Date End Date Chiki Jarquin DO [address] [place] [address] PCP - General Internal Medicine 09/10/24 Pravin Davis MD [address] [place] [address] Primary Striper Cardiovascular Disease 11/18/24 documented as of this encounter
--- OUTSIDE RECORDS SUMMARY | 2025-03-10 12:28 | XMS_ITS | Clinical Summary ---
Author Organization [facility] Address [address] [place] [address] Care Team Providers Care Development Intern Name Role Phone Chiki Jaqruin DO Primary Care Provider [phone] Pravin Davis MD Unavailable Allergies Active Allergy [...] patient's age to complete this topic Insurance [facility] MEDICARE Care Teams Development Intern Relationship Specialty Start Date End Date Chiki Jarquin DO [address] [place], [place] [phone] PCP - General Internal Medicine 09/10/24 Pravin Davis MD [address] [place] [address] Primary Propeller Layout Worker Cardiovascular Disease 11/18/24
--- OUTSIDE RECORDS SUMMARY | 2025-03-10 12:29 | XMS_ITS | Patient Health Record ---
Author Organization [facility] Address [address] [place] [address] Care Team Providers Care Railroad Car Repair Supervisor Name Role Phone Chiki Jarquin Primary Care Provider Sujata Santos Unavailable [phone] Allergies No Known Allergies Results Component Value Reference Range Flag Notes Comp Metabolic Panel w/eGFR 27290 Reviewed date:2024 01:53:00 PM Interpretation:glucose 125 Performing Lab:1, , [address] [place], [address] Catie Maier M.D. Notes/Report: Received Date: 0; [...] PM Interpretation: Normal Performing Lab:NL1, , [address] [place], [address] Catie Maier M.D. Notes/Report: Received Date: [id number] 0; 0; 0; 0; 0 FASTING:YES PATIENT [...] 01:53:00 PM Interpretation:7.6 Performing Lab:NL1, , [address] [place], [address] Catie Maier M.D. Notes/Report: Received Date: [id number] 0; 0; 0; 0; 0 FASTING:YES PATIENT [...] diabetes for children. Lipid Panel w/refl LDL 28233 Reviewed date:2024 01:53:00 PM Interpretation: Normal Performing Lab:NL1, , [address] [place], [address] Catie Maier M.D. Notes/Report: Received Date: [id number] 0; 0; 0; 0; 0 FASTING:YES PATIENT [...] LDL-C. Lewis SS et al. ARMAND. 2013;310(19): 7269-0988 (http://education.[employer]/faq/FZA109) CHOL/HDLC RATIO 3.1 <5.0 (calc) N NON HDL CHOLESTEROL 109 <130 mg/dL (calc) N For patients with diabetes plus 1 major ASCVD risk factor, treating to a non-HDL-C goal of <100 mg/dL (LDL-C of <70 mg/dL) is considered a therapeutic option. Urinalysis IH Reviewed date:09/03/2024 11:28:25 AM Interpretation:Normal Performing Lab: Notes/Report: Normal Exp. Date 02/01/2025 Lot No. [id number] Leuko Negative Nitrite Negative Urobilinogen 0.2 Protein Negative pH 6.0 Blood Negative Sp. Gr. 1.010 Ketone Negative Biliruben Negative Glucose 100 mg/dl Reason For Referral Reason chest pain Diagnosis 1 Chest pain (R07.9) Diagnosis 2 Long QT interval (I4 5.81) Diagnosis 3 Congestive heart dis ease (I50.9) Diagnosis 4 Left axis deviation (R94.31) Referral Organization [facility] Referring Provider First Name Chiki Referring Provider Last Name Britton Referring Provider Speciality Internal M edicine Referred Provider [facility] Referred Provider Specialty Cardiology General Notes [place] Referral Field Marketing Manager olman, Roxann 09/07/2024 02:12:09 PM > faxed referral medical summary progress note labs noEKG [phone], pernell, support 09/07/2024 14:23:00 PM>, [facility]: Referral for , [facility] no auth required, pernell, support 09/07/2024 14:23:00 PM>, [facility]: Referral Recommendations Sent to Patient , [facility] , [address] , [facility], [address] , , , pernell, support 09/10/2024 14:26:00 PM>, [facility] 09/10/24 02:15 PM: Patient Reviewed Link, pernell, support 09/15/2024 14:23:00 PM>, [facility] 09/15/24 02:17 PM: Patient Confirmed Appt Scheduled, pernell, support 09/20/2024 10:39:00 AM>, [facility] 09/20/24 09:55 AM: Patient opted out of SMS communication., pernell, support 10/20/2024 15:51:42 PM>, [facility] Summary, [facility] 09/07/24 01:13 PM: Patient Sent Specialist Recommendation , [facility] , [address] , [facility], [id number] , , , [facility] 09/10/24 01:13 PM: [...] perception of literacy I read well in: Central African Bulgarian, 08/09/2024 ES Tobacco Control (Standard) Tobacco use: Nonsmoker Health Literacy How confident are yo u filling out medical forms by yourself? 1 Extremely 08/09/2024 ES How do you like To Learn : all of them, 08/09/2024 ES Language Spoken Language Spoken Bulgarian, Central African 025 ES // Central African is 1st language Problems Problem Type SNOMED Code ICD Code Onset Dates Problem Status W/U Status Risk Notes Problem Body mass index 30.00 to 34.99 (702646989839171 ) Body mass index (BMI) 33.0-33.9, adult (Z68.33) Active confirmed Problem Body mass index 30.00 to 34.99 (078734831015650 ) Body mass index (BMI) 34.0-34.9, adult (Z68.34) Active confirmed Problem Hypertension (30580068) Hypertension (I10) Active confirmed Problem Long QT syndrome (0142071) Long QT interval (I45.81) Active confirmed Problem Congestive heart disease (37982926) Congestive heart disease (I50.9) Active confirmed Problem Left axis deviation (13865778) Left axis deviation (R94.31) Active confirmed Problem Type II diabetes mellitus without complication (033593637) DM type 2, goal HbA1c < 7% (E11.9) Active confirmed Vital Signs Temperature 98.5 degrees Fahrenheit 09/03/2024 Respiratory Rate 16 /min 09/03/2024 Oximetry 98 % 09/03/2024 Blood pressure diastolic 85 mm Hg 09/03/2024 Height 57 in 09/03/2024 Blood pressure systolic 138 mm Hg 09/03/2024 Weight 156.4 lbs 09/03/2024 BMI 33.84 kg/m2 09/03/2024 Encounters Encounter Location Date Provider Diagnosis [facility] of [address] [address] 08/09/2024 Chiki Jarquin DM type 2, goal HbA1 c < 7% E11.9 [facility] of [address] [address] 08/10/2024 Chiki Jarquin [address] [address] 08/20/2024 Chiki Jarquin [address] [address] 2024 Chiki Jarquin [address] [address] 09/13/2024 Chiki Jarquin [facility] [place] [address] 10/15/2024 Chiki Jarquin [address] [id number] [address] 10/21/2024 Chiki Jarquin [address] [address] 11/16/2024 Chiki Jarquin [address] [address] 11/18/2024 Chiki Jarquin [address] [address] 12/13/2024 Chiki Jarquin Hypertension I10 and DM type 2, goal HbA1c < 7% E11.[address] [address] 09/03/2024 Chiki Jarquin Chest pain R07.9 ; Congestive heart disease I50.9 ; Left axis deviation R94.31 ; Long QT interval I45.81 ; Hypertension I10 ; Body mass index (BMI) 33.0-33.9, adult Z68.33 and Dysuria R30.[address] [address] 08/09/2024 Chiki Jarquin Encounter for behavioral health [...] Treatment Pending Test Test Name Order Date Microalbumin,[facility] (w/creat) 6517 11/2024 Cologuard 10/22/2024 Insurance Providers Payer Name Payer Address Payer Phone Subscriber Number Group Number Insured Name Patient Relationship to Insured Coverage Start Date Coverage End Date [facility] - Medical [address] [place] [address] [phone] [id number] Mimi Vallejo Self - patient is the insured [facility] Medicare Adv PPO - [address] [place] [id number] Mimi Vallejo Self - patient is the insured Medical (General) History Hospitalization History Reason Date(Month/Year) HTN
--- OUTSIDE RECORDS SUMMARY | 2025-03-10 12:29 | XMS_ITS | Encounter Summary ---
Author Organization [facility] Address [address] [place] [address] Care Team Providers Care Mash Processing Operator Name Role Phone Unavailable Primary Care Provider Unavailabl e Prior Encounters Date Type Department Care Team Description 01/11/2025 3:00 PM PDT Office Visit [facility]ists [address] [address] Dexter Quintero DDS 01/05/2025 10:30 AM PDT Office Visit Dentists [address] [address] Dexter Quintero DDS 12/21/2024 2:00 PM PDT Office Visit Dentists [address] [address] Dexter Quintero DDS 12/16/2024 1:15 PM PDT Office Visit Dentists [address] [address] Michelle Graves [facility] 12/15/2024 10:00 AM PDT Office Visit Dentists [address] [address] Dexter Quintero DDS 10/09/2022 11:30 AM PDT Office Visit [facility] [address] [facility] [address] [place] [address] Ana Maria Pennington DMD Last Filed Vital [...] Upcoming Encounters Date Type Department Care Team ([facility] st Contact Info) Description 03/22/2025 10:30 AM PST Office Visit [facility] [address] [facility] [place] [phone] Michelle Graves, [facility] [address] [place] [address] Procedures Procedure Name Priority Date/Time Associated Diagnosis [...] - ADULT Routine 12/15/2024 10:00 AM PDT CORPORATE LICENSED BROKER FOUR BITEWING XRAYS Routine 10:00 AM PDT NEW PATIENT INTRAORAL - PERIAPICAL FIRST RADIOGRAPHIC IMAGE Routine 12/15/2024 10:00 AM PDT CORPORATE LICENSED BROKER CBCT Routine 12/15/2024 10:00 AM PDT ORAL [...] DENTOGNOSTICS Visit Diagnoses Not on file Insurance [facility] HMO
--- OUTSIDE RECORDS SUMMARY | 2025-03-10 12:29 | XMS_ITS | Clinical Summary ---
Author Organization [facility] Address [address] [place] [address] Care Team Providers Care Cerner Analyst Name Role Phone Unavailable Primary Care Provider [...] 3:00 PM PDT Office Visit Dentists [address] [address] Dexter Quintero DDS 01/05/2025 10:30 AM PDT Office Visit Dentists [address] [address] [place] [address] Dexter Quintero DDS 12/21/2024 2:00 PM PDT Office Visit Dentists [address] [address] Dexter Quintero DDS 12/16/2024 1:15 PM PDT Office Visit Dentists [address] [address] [place] [address] Michelle Graves RDH 12/15/2024 10:00 AM PDT Office Visit Dentists of [address] [phone] Dexter Quintero DDS from Last 3 Months [...] Upcoming Encounters Date Type Department Care Team ([facility] Contact Info) Description 03/22/2025 10:30 AM PST Office Visit Dentists of [address] [phone] Michelle Graves, [facility] [address] [facility] [place] [address] [place] [address] Health Maintenance Due Date Last Done Comments [...] - ADULT Routine 12/15/2024 10:00 AM PDT BUSINESS INFORMATION MANAGER FOUR BITEWING XRAYS Routine 10:00 AM PDT NEW PATIENT INTRAORAL - PERIAPICAL FIRST RADIOGRAPHIC IMAGE Routine 12/15/2024 10:00 AM PDT BUSINESS INFORMATION MANAGER CBCT Routine 12/15/2024 10:00 AM PDT [...] Result DENTOGNOSTICS from Last 3 Months Insurance [facility]
--- OUTSIDE RECORDS SUMMARY | 2025-03-10 12:29 | XMS_ITS | Clinical Summary ---
Author Organization [facility] Address [address] [place] [address] Phone Care Team Providers Care Stave Cutting Supervisor Name Role Phone Chiki Jarquin DO Primary Care Provider [phone] Social History Tobacco Use Types Packs/Day Years [...] complete this topic Insurance [place] [address] Care Teams Stave Cutting Supervisor Relationship Specialty Start Date End Date Chiki Jarquin DO [address] [place] [address] PCP - General Internal Medicine 10/06/24
== END 2025-03-10 10:56 | disposition home or self-care (01) ==
LOC: HO.HMCFMS 10:27
PROVIDERS: PCP Student in an Organized Health Care Education/Training Program; Visit Provider Student in an Organized Health Care Education/Training Program
DX: I10 Essential (primary) hypertension (principal); E78.5 Hyperlipidemia, unspecified; E11.9 Type 2 diabetes mellitus without complications; K21.9 Gastro-esophageal reflux disease without esophagitis

== ENCOUNTER → 2025-03-10 10:26 | Outpatient (BNVA) | payer OTHER, SELFPAY | PROVIDERS: PCP Student in an Organized Health Care Education/Training Program; Visit Provider Student in an Organized Health Care Education/Training Program | DX: I10 Essential (primary) hypertension (principal); E11.9 Type 2 diabetes mellitus without complications; K21.9 Gastro-esophageal reflux disease without esophagitis; E78.5 Hyperlipidemia, unspecified | CPT/HCPCS: 99212 ==

== ENCOUNTER 2025-03-23 10:49 | Outpatient (AMB) | payer OTHER, SELFPAY ==
--- OUTSIDE RECORDS SUMMARY | 2023-10-20 04:15 | XMS_ITS ---
Author Organization [employer] Address [address] [place] [address] Care Team Providers Care Mail Inserter Name Role Phone Wilfrido SUNG, Niraj Primary Care Provider Edson Garces PA-C REASON FOR VISIT 3m fasting labs Encounters Encounter Location Date Provider Diagnosis [facility] [address] [place] [id number] 10/20/2023 Edson Garces Plan Of Treatment No Information Progress Notes * Mimi ALBRECHTDOB:1950 (74 yo F)Acc No.[id number]:10/20/2023 UNLOCKED PROGRESS NOTE Patient: Mimi Gleason Provider: Solange Garces PA-C :1950 A ge:73 Y S ex:Female Date:10/20/2023 Address:[facility] [place] [facility] [id number] Pcp:Niraj Anna MD Subjective: * Chief Complaints: * 3 m fasting labs Objective: Past Vitals:* 07/21/2023 BP:sittin/59mm Hg, RR:1 6/min, Pulse:sittin/min, Temp:oral:97.3F, Ht:56in, Wt:148.2lbs, BMI:33.22Index, Oxygen Sat:Room Air:98%, Pain Scale:01-10 * Electronic signature of Vlad Garces PA-C, PA-C on 03/23/2025 at 08:21 PM LICENSED HOME INSPECTOR Sign off status: Pending * Provider: Solange Garces PA-C Date: 0 10/20/2023 Generated for Anjali madison/Lv/Isabelle on: 1 05/23/2024 08:21 PM LICENSED HOME INSPECTOR
--- OUTSIDE RECORDS SUMMARY | 2023-11-13 03:27 | XMS_ITS ---
Author Organization [facility] Physician Servic es Billing Info Address [address] [place], [place] [address] Care Team Providers Care Sybase Developer Name Role Phone Sinan Kenney Primary Care Provider SINAN Olivas Unavailable [phone] REASON FOR VISIT Terrancebelsus SIDNEY Encounters Encounter Location Date Provider Diagnosis [id number] [facility] [address] [address] [place], [place] [id number] 11/13/2023 SINAN KENNEY Plan Of Treatment No Information Progress Notes * Mimi ALBRECHTDOB:1950 (73 yo F)Acc No.[id number]:11/13/2023 Patient: Mimi BENTLEY :1950 A ge:73 Y S ex:Female Address:[address], [place], [address] * true * Date: Generated for Printi ng/Faxing/eTransmitting on: 05/23/2024 08:19 PM BOARD ATTENDANT
--- OUTSIDE RECORDS SUMMARY | 2023-11-17 04:10 | XMS_ITS ---
Author Organization [facility] Billing Info Address [address] [place], [place] [address] Care Team Providers Care Group Contract Analyst Name Role Phone Sinan Kenney Primary Care Provider UnavailSINAN Vanegas Unavailable [phone] REASON FOR VISIT PA approved Medications Medication SIG (Take, Route, Frequency, Duration) Notes Start Date End Date Status Rybelsus 7 MG 1 tablet at least 30 minutes before first food, beverage or other oral medicine of the day Orally Once a day for 90 days Rybelsus 3mg started as sample; PA Approved; Rx #: [id number] 11/12/2023 Active Encounters Encounter Location Date Provider Diagnosis [id number] [facility] [address] [address] [place], [place] [address] 11/17/2023 SINAN KENNEY Type 2 diabetes mellitus [...] started as sample; PA Approved; Rx #: [id number] Progress Notes * Mimi ALBRECHTDOB:1950 (73 yo F)Acc No.[id number]:11/17/2023 Patient: Mimi BENTLEY :1950 A ge:73 Y S ex:Female Address:[address] [place] [address], [place], [address] * Refills Refill Rybelsus Tablet, 7 MG, Orally, 90, 1 tablet at least 30 minutes before first food, beverage or other oral medicine of the day, Once a day, 90 days, Refills=1 * true * Date: Generated for Anjali madison/Lv/Estivensmitting on: 05/23/2024 08:20 PM HOT BALLER
--- OUTSIDE RECORDS SUMMARY | 2023-11-19 06:06 | XMS_ITS ---
Author Organization [facility] Billing Info Address [address] [place], [place] [address] Care Team Providers Care Barratte Operator Name Role Phone Sinan Kenney Primary Care Provider SINAN Olivas Unavailable [phone] REASON FOR VISIT Rybelsus and refill for glucose strips Medications Medication SIG (Take, Route, Frequency, Duration) Notes Start Date End Date Status Glucose Test Strips - Patient Choice of Test Strips -- check blood glucose as directed capillary as directed for 100 days 10/02/2023 Active GlipiZIDE ER 2.5 MG 1 tablet with breakf ast Orally Once a day for 90 days 11/20/2023 Active Encounters Encounter Location Date Provider Diagnosis [id number] [facility] [address]3795 IH [address] [place], [place] [id number] 11/19/2023 SINAN KENNEY Type 2 diabetes mellitus with other specified complication, without long-term current use of insulin E11.69 Assessments Encounter Date Diagnosis (ICD Code) Assessment Notes Treatment Notes Treatment Clinical Notes Section Notes 11/19/2023 Type 2 diabetes mellitus with other specified complication, without long-term current use of insulin (ICD-10 - E11.69) Plan Of Treatment Medication Medication Name Sig Start Date Stop Date Notes Glucose Test Strips - Patient Choice of Test Strips -- check blood glucose as directed capillary as directed for 100 days 10/02/2023 GlipiZIDE ER 2.5 MG 1 tablet with breakfast Orally Once a day for 90 days 11/20/2023 Rybelsus 7 MG 1 tablet at least 30 minutes before first food, beverage or other oral medicine of the day Orally Once a day 11/12/2023 Rybelsus 3mg started as sample; PA Approved; Rx #: [id number] Progress Notes * Mimi ALBRECHTDOB:1950 (73 yo F)Acc No.[id number]:11/19/2023 Patient: Mimi BENTLEY :1950 A ge:73 Y S ex:Female Address:[address] [place] [address], [place], [address] * Refills Refill Glucose Test Strips - Patient Choice of Test Strips test strips, --, capillary, 100, check blood glucose as directed, as directed, 100 days, Refills=3 Stop Rybelsus Tablet, 7 MG, Orally, 1 tablet at least 30 minutes before first food, beverage or other oral medicine of the day, Once a day Start GlipiZIDE ER Tablet Extended Release 24 Hour, 2.5 MG, Orally, 90 Tablet, 1 tablet with breakfast, Once a day, 90 days, Refills=1 Subjective: * Chief Complaints: * R ybelsus and refill for glucose strips * Medical History: * Surgical History: * Hospitalization/Major Diagno stic Procedure: * Medications: Objective: * Vitals: * Physical Examination: Assessment: * Assessment: 1. T ype 2 diabetes mellitus with other specified complication, without long-term current use of insulin - E11.69 Plan: * Treatment: 2. O thers Refill Glucose Test Strips - Patient Choice of Test Strips test strips, --, check blood glucose as directed, capillary, as directed, 100 days, 100, Refills 3. * Procedure Codes: * true * Date: Generated for Anjali madison/Lv/eTransmitting on: 05/23/2024 08:19 PM CAR WHACKER
--- OUTSIDE RECORDS SUMMARY | 2023-12-03 09:15 | XMS_ITS ---
Author Organization [facility] Billing Info Address [address] [place] [address] Care Team Providers Care Functional Support Analyst Name Role Phone Sinan Kenney Primary Care Provider UnavailSINAN Vanegas Unavailable [phone] DOMINIC SHANKS Unavailable [phone] REASON FOR VISIT leg pain ..vfj [id number] Encounters Encounter Location Date Provider Diagnosis [id number] [place] [address] [facility] 65683 IH [address] [place], [place] [address] 12/03/2023 DOMINIC SHANKS Plan Of Treatment No Information Progress Notes * Mimi ALBRECHTDOB:1950 (74 yo F)Acc No.[id number]:12/03/2023 PROGRESS NOTE Patient: Mimi BENTLEY Provider: MOSHE Pace :1950 A ge:73 Y S ex:Female Date:12/03/2023 C HN#:[id number] Address:[address], [place]-[id number] Pcp:Sinan eKnney Patient's Default Facility:[address] [place] [address] [facility] Subjective: * Chief Complaints: * 1 . Leg pain ..vfj 631473. * Medical History: Objective: * Vitals: Assessment: Plan: * Treatment: * Care Plan Details* * This progress note has not b een verified nor is it considered complete until locked and signed by the provider. Sign off status: Pending * Provider: Maday Shanks, MOSHE Date: 0 12/03/2023 Generated for Anjali madison/Lv/Isabelle on: 05/23/2024 08:21 PM SECURITY ASSURANCE ANALYST
--- OUTSIDE RECORDS SUMMARY | 2023-12-04 08:06 | XMS_ITS ---
Author Organization [facility] Physician Servic es Billing Info Address [address] [place], [place] [address] Care Team Providers Care Home Service Director Name Role Phone Sinan Ken[place] Primary Care Provider Unavailabl SINAN Godinez Unavailable [phone] REASON FOR VISIT elevated b/p Encounters Encounter Location Date Provider Diagnosis [id number] [address] [address] [place], [place] [address] 12/04/2023 SINAN KENNEY Plan Of Treatment No Information Progress Notes * Mimi ALBRECHTDOB:1950 (73 yo F)Acc No.[id number]:12/04/2023 Patient: Mimi BENTLEY :1950 A ge:73 Y S ex:Female Address:[address], [place], [address] * true * Date: Generated for Printi ng/Faxing/eTransmitting on: 05/23/2024 08:20 PM VEIN PUMPER
--- OUTSIDE RECORDS SUMMARY | 2023-12-04 08:15 | XMS_ITS ---
Author Organization [facility] Billing Info Address [address] [place], [place] [address] Care Team Providers Care Electrotherapist Name Role Phone Unruly Kenney Primary Care Provider Unavailabl e UNRULY KENNEY Unavailable [phone] DOMINIC HSANKS Unavailable [phone] Allergies Allergen (clinical drug ingredient) Drug/Non Drug Allergy documented on EMR Reaction Allergy Type Onset Date Status empagliflozin Jardiance nausea/vomiting Drug Allergy Active trazodone Trazodone intolerance Drug Allergy Activ e Reason For Referral Reason eval and treat Diagnosis 1 Left lumbar radiculo chuy (M54.16) Referral Organization [id number] [facility] Referring Provider First Name DOMINIC Referring Provider Last Name DIMITRIS Referring Provider Speciality Nurse Prac titioner Referred Provider [facility] Referred Provider Specialty Physical The rapy General Notes KRISTI JACOBS 01:23:31 PM >eval and treat [facility] Clinical Notes KRISTI JACOBS 02:47:05 PM >left message for patient to call and schedule an appointment with specialist, KRISTI VICENTE 12/11/2023 10:27:43 AM >rerouted per patientJULES MELISSA 12/11/2023 10:29:43 AM >left message for patient to call and schedule an appointment with specialist Referral Priority Routine REASON FOR VISIT Lt glut / leg pain x 3/d w/ radiculapathy [id number] Medications Medication SIG (Take, Route, Frequency, Duration) Notes Start Date End Date Status Ashwagandha 500 MG as directed Orally Active Atorvastatin Calcium 20 MG 1 tablet Orally Once a day for 90 days Active Beet Root 500 MG as directed Orally Active GlipiZIDE ER 2.5 MG 1 tablet with breakf ast Orally Once a day for 90 days 11/20/2023 Active Glucose Test Strips - Patient Choice of Test Strips -- check blood glucose as directed capillary as directed for 100 days 10/02/2023 Active Metformin HCl 500 MG 1 tablet with a janessa l Orally Once a day for 90 days Active Omeprazole 10 MG 1 capsule 30 minutes before morning meal Orally Once a day for 90 days Active Telmisartan-HCTZ 80-12.5 MG 1 tablet Orally Once a day in AM for high blood pressure for 90 days 11/12/2023 Active Ibuprofen 600 MG 1 tablet with food o r milk Orally Three times a day for 14 days 12/04/2023 Active Gabapentin 300 MG 1 capsule Orally harsh ry 8 hrs prn nerve pain for 30 days 12/04/2023 Active Losartan Potassium 50 MG 1 tablet Orally Once a day for 90 days Not-Taking Handicap Placard for Mobility Impairment -- 10/02/2023 Activ e Social History Tobacco Use: Social History Observation Description Date Details (start date - stop date) Never Smoker NA - NA Tobacco Status: Question Answer Notes Patient is a never smoker Vital Signs Height 61 in 12/04/2023 Weight 152.8 lbs 12/04/2023 BMI 28.87 kg/m2 12/04/2023 Blood pressure systolic 138 mm Hg 12/04/19 24 Blood pressure diastolic 80 mm Hg 024 Heart Rate 96 /min 12/04/2023 Oximetry 97 12/04/2023 Encounters Encounter Location Date Provider Diagnosis [id number] [facility] [address] [address] [place], [place] [id number] 12/04/2023 DOMINIC SHANKS Left lumbar radiculopathy M54.16 Assessments Encounter Date Diagnosis (ICD Code) Assessment Notes Treatment Notes Treatment Clinical Notes Section Notes 12/04/2023 Left lumbar radiculopathy (ICD-10 - M54.16) 12/04/2023 Other A Healthy Lifestyle: Care Instructions material was published Plan Of Treatment Medication Medication Name Sig Start Date Stop Date Notes Ibuprofen 600 MG 1 tablet with food o r milk Orally Three times a day for 14 days 12/04/2023 Gabapentin 300 MG 1 capsule Orally harsh ry 8 hrs prn nerve pain for 30 days 12/04/2023 Treatment Notes Assessment Notes Other A Healthy Lifestyle: Care Instructions material was published Referrals Referral Date Details 12/04/2023 12/04/2023, eval and treat, [facility] [place] Next Appt Details Follow Up: prn, Reason: Progress Notes * Mimi ALBRECHTDOB:1950 (73 yo F)Acc No.[id number]:12/04/2023 PROGRESS NOTE Patient: Mimi BENTLEY Provider: MOSHE Pace :1950 A ge:73 Y S ex:Female Date:12/04/2023 C #:[id number] Address:[address] [place] [address], [facility] Pcp:Unruly Kenney Patient's Default Facility:[address] [place] [address] [facility] Subjective: * Chief Complaints: * L t glut / leg pain x 3/d w/ radiculapathy [id number] * HPI: F irst Point of Contact Screening: Do any of the following apply to you? N ew rash or open sores N o F ever and/or chills in the past 7 days N o C ough N o M uscle or body aches (other than from an injury) N o S ore throat N o I n the past 3 weeks, have you or a close contact traveled outside the [facility] and you are now ill? N o O FFICE USE (If universal masking is not in place, provide patients age 2 years and older with a facemask to wear over their mouth and nose while in the practice.): P atient answered no to all questions OR only answered yes to question 1 N o further action needed 0 12/04/2023 P atient History: Onset 3 days ago, pt with pain to posterior L buttock extending down leg. Increased pain in standing/walking position. Aggravated by rolling over in bed. No hx of similar problems. Pt with chronic mild bilateral low back pain. Pt has a pending trip to [place]. * Medical History: * Surgical History: N o Surgical History documented. * Hospitalization/Major Diagno stic Procedure: N o Hospitalization History. * Family History: M other: . F ather: . * Social History: A lcohol Use Patient d oes not use alcohol T obacco Status Patient is a never smoker M arital Status: . L vin with: spouse. I llicit Drug Use Patient/Family reports: N o illicit drug use C affeine: coffee, per day. D rugs: none. * Medications: T akingAshwagandha 500 MG Capsule as directed Orally Atorvastatin Calcium 20 MG Tablet 1 tablet Orally Once a day Beet Root 500 MG Capsule as directed Orally GlipiZIDE ER 2.5 MG Tablet Extended Release 24 Hour 1 tablet with breakfast Orally Once a day Glucose Test Strips - Patient Choice of Test Strips -- test strips check blood glucose as directed capillary as directed Handicap Placard for Mobility Impairment -- -- Metformin HCl 500 MG Tablet 1 tablet with a meal Orally Once a day Omeprazole 10 MG Capsule Delayed Release 1 capsule 30 minutes before morning meal Orally Once a day Telmisartan-HCTZ 80-12.5 MG Tablet 1 tablet Orally Once a day in AM for high blood pressure Taking Ashwagandha 500 MG Capsule as directed Orally Taking Atorvastatin Calcium 20 MG Tablet 1 tablet Orally Once a day Taking Beet Root 500 MG Capsule as directed Orally Taking GlipiZIDE ER 2.5 MG Tablet Extended Release 24 Hour 1 tablet with breakfast Orally Once a day Taking Glucose Test Strips - Patient Choice of Test Strips -- test strips check blood glucose as directed capillary as directed Taking Handicap Placard for Mobility Impairment -- -- Taking Metformin HCl 500 MG Tablet 1 tablet with a meal Orally Once a day Taking Omeprazole 10 MG Capsule Delayed Release 1 capsule 30 minutes before morning meal Orally Once a day Taking Telmisartan- HCTZ 80-12.5 MG Tablet 1 tablet Orally Once a day in AM for high blood pressure Not-TakingLosartan Potassium 50 MG Tablet 1 tablet Orally Once a day Medication List reviewed and reconciled with the patientNot-Taking Losartan Potassium 50 MG Tablet 1 tablet Orally Once a day Medication List reviewed and reconciled with the patient * Allergies: J ardiance: nausea/vomiting - AllergyTrazodone: intolerance - Side Effectsno[Allergies Verified] Objective: * Vitals: H t: 61 in, Ht-cm: 154.94 cm, Wt: 152.8 lbs, Wt-k.31 kg, BMI:28.87, Weight Change: -2.2 lbs, Body Surface Area: 1.73, BP:138/80, HR:96, Oxygen sat %:97. * P ast Orders: L ab:Comp. Metabolic Panel (14) ([id number]) (Order Date - 10/02/2023) (Collection Date & Time - 10/07/2023 08:32 AM) Value Reference Range Calcium 9.9 8.7-10.3 - mg/dL Glucose 123 H 70-99 - mg/dL BUN 12 8-27 - mg/dL Protein, Total 6.7 6.0-8.5 - g/dL Albumin 4.3 3.8-4.8 - g/dL Bilirubin, Total 0.4 0.0-1.2 - mg/dL Alkaline Phosphatase 66 44-121 - IU/L AST (SGOT) 8 0-40 - IU/L Potassium 4.5 3.5-5.2 - mmol/L Sodium 139 134-144 - mmol/L Chloride 102 96-106 - mmol/L Creatinine 0.60 0.57-1.00 - mg/dL ALT (SGPT) 9 0-32 - IU/L Carbon Dioxide, Total 25 20-29 - mmol/L BUN/Creatinine Ratio 20 12-28 - Globulin, Total 2.4 1.5-4.5 - g/dL A/G Ratio 1.8 1.2-2.2 - eGFR 95 >59 - mL/min/1.73 * Examination: G ENERAL EXAMINATION: Constitutional: n o apparent distress. Lungs: c lear, breath sounds, nonlabored. Heart: r egular rate and rhythm. Musculoskeletal: n ontender to L- spine. Psych: a ffect normal. Assessment: * Assessment: 1. L eft lumbar radiculopathy - M54.16 (Primary) Plan: * Treatment: 2. O thers Notes: A Healthy Lifestyle: Care Instructions material was published * Procedure Codes: * Preventive Medicine: Quality Measures: F all Risk Assessment: Date of Screening Completed: 0 12/04/2023 Increased Fall Risk Factors: N o fall risk factors History Falls in Past Year: N o falls in the past year B reast cancer screening: Patient's S creening mammography results documented and reviewed Mammography Performed 0 08/03/2022 Normal per report, f/u in 2 years C olorectal Cancer Screening: Patient's C olorectal cancer screening results documented and reviewed Colonoscopy 0 05/05/2021 F/u 5 years H igh Blood Pressure screening and follow up: Intervention Order Y es Follow Up for BP reading with PCP/Alternative Provider F ollow-up 4-6 months (finding) Lifestyle Recommendation L ifestyle education regarding hypertension (procedure) Weight Reduction Recommended W eight control education (procedure) Dietary Recommendations N utrition education (procedure) Physical Activity Recommendation E xercises education, guidance, and counseling (procedure) A sthma Pharmacologic Treatment: Patient h as documented reasons for not prescribing inhaled corticosteroids (patient declined or other reasons) W eight Assessment Above Normal BMI Follow-Up L ifestyle education regarding diet D epression PHQ-9 Intervention Performed E valuation of psychiatric state of patient (procedure) Follow-Up Plan P atient follow-up to return when and if necessary (procedure) Female Adult Health Promotion: O steoporosis Screening date of last dexascan 0 05/05/2021 Osteopenia * Follow Up: p rn * Care Plan Details* * Sign off status: Completed true * Provider: MOSHE Pace Date: 0 12/04/2023 Generated for Anjali madison/Lv/Isabelle on: 05/23/2024 08:19 PM DATA SYSTEMS MANAGER History and Physical Notes * HPI (History of Present Illness) Category Sub-Category Detail Notes Category Not es Patient History Onset 3 days ago, pt with pain to posterior L buttock extending down leg. Increased pain in standing/walking position. Aggravated by rolling over in bed. No hx of similar problems. Pt with chronic mild bilateral low back pain. Pt has a pending trip to [place]. First Point of Contact Screening Do any of the following apply to you? New rash or open sores: No Fever and/or chills in the past 7 days: No Cough: No Muscle or body aches (other than from an injury): No Sore throat: No In the past 3 weeks, have yo u or a close contact traveled outside the [place] and you are now ill? : No OFFICE USE (If universal mas jordana is not in place, provide patients age 2 years and older with a facemask to wear over their mouth and nose while in the practice.):: Patient answered no to all questions OR only answered yes to question 1 No further action needed : 12/04/2023 Examination Category Sub-Category Detail Notes Category Not es GENERAL EXAMINATION Constitutional: no apparent distre ss Lungs: clear, breath sounds , nonlabored Heart: regular rate and rhy thm Musculoskeletal: nontender to L- spin e Psych: affect normal Consultation Request Notes Referral Date Referring Provider Referred Provider Not es 12/04/2023 DOMINIC SHANKS, [facility] [place] and treat
--- OUTSIDE RECORDS SUMMARY | 2023-12-08 04:49 | XMS_ITS ---
Author Organization [facility] Billing Info Address [address] [place], [place] [address] Care Team Providers Care Postal Carrier Name Role Phone Sinan Kenney Primary Care Provider SINAN Olivas Unavailable [phone] REASON FOR VISIT New Referral Encounters Encounter Location Date Provider [facility] [address] [address] [place], [place] [address] 12/08/2023 SINAN KENNEY Plan Of Treatment No Information Progress Notes * Mimi ALBRECHTDOB:1950 (73 yo F)Acc No.[id number]:12/08/2023 Patient: Mimi BENTLEY :1950 A ge:73 Y S ex:Female Address:[address], [place], [address] * true * Date: Generated for Printi ng/Faxing/eTransmitting on: 05/23/2024 08:20 PM NETWORK SUPPORT ADMINISTRATOR
--- OUTSIDE RECORDS SUMMARY | 2023-12-18 04:03 | XMS_ITS ---
Author Organization [facility] Billing Info Address [address] [place], [place] [address] Care Team Providers Care Die Cast Die Maker Name Role Phone Unruly Kenney Primary Care Provider UNRULY Olivas [facility] [phone] REASON FOR VISIT Refill Medications Medication SIG (Take, Route, Frequency, Duration) Notes Start Date End Date Status Amlodipine Besylate 10 MG 1 tablet Orally Once a day Active Encounters Encounter Location Date Provider Diagnosis [id number] [address] [address] [place], [place] [address] 12/18/2023 UNRULY KENNEY Essential hypertensi on I10 [...] high blood pressure 11/12/2023 Progress Notes * AMBROCIO, MimiDOB:1950 (73 yo F)Acc No.[id number]:12/18/2023 Patient: Mimi BENTLEY :1950 A ge:73 Y S ex:Female Address:[facility] [address], [place], [address] * Refills Refill Amlodipine Besylate Tablet, 10 MG, Orally, 1 tablet, Once a day Stop Telmisartan-HCTZ Tablet, 80-12.5 MG, Orally, 1 tablet, Once a day in AM for high blood pressure * true * Date: Generated for Anjali madison/Lv/Isabelle on: 05/23/2024 08:19 PM BELL NECK HAMMERER
--- OUTSIDE RECORDS SUMMARY | 2024-01-14 09:00 | XMS_ITS ---
Author Organization [facility] Billing Info Address [address] [place], [place] [address] Care Team Providers Care Process Tank Tender Name Role Phone Sinan Kenney Primary Care Provider SINAN Olivas [facility] [phone] Allergies Allergen (clinical drug ingredient) Drug/Non Drug [...] smoker Encounters Encounter Location Date Provider Diagnosis [id number] [facility] [address] [address] [place], [place] [id number] 01/14/2024 SINAN KENNEY Assessments Encounter Date Diagnosis (ICD Code) Assessment Notes Treatment Notes Treatment Clinical Notes Section Notes 01/14/2024 Other A Healthy Lifestyle: Care Instructions material was published Plan Of Treatment Treatment Notes Assessment Notes Other A Healthy Lifestyle: Care Instructions material was published Progress Notes * Mimi ALBRECHTDOB:1950 (74 yo F)Acc No.[id number]:01/14/2024 PROGRESS NOTE Patient: Mimi BENTLEY Provider: Tamar KENNEY MD :1950 A ge:73 Y S ex:Female Date:01/14/2024 C HN#:[id number] Address:[facility] [address], [id number] Pcp:Sinan Kenney Patient's Default Facility:[address] [place] [address] [facility] Subjective: * Chief Complaints: * [...] 0 01/14/2024 Generated for Anjali madison/Lv/Estivensmitting on: 05/23/2024 08:21 PM HEATING PLANT SUPERINTENDENT History and Physical Notes * HPI (History [...] now ill? : No OFFICE USE (If Vuzit is not in place, provide patients age 2 years and older with a facemask to wear over their mouth and nose while in the practice.):: Patient answered no to all questions OR only answered yes to question 1 No further action needed : 01/14/2024
--- OUTSIDE RECORDS SUMMARY | 2024-02-11 02:26 | XMS_ITS ---
Author Organization [facility] Billing Info Address [address] [place], [place] [address] Care Team Providers Care Calciminer Name Role Phone Sinan Kenney Primary Care Provider UnavailSINAN Vanegas Unavailable [phone] REASON FOR VISIT reschedule Encounters Encounter Location Date Provider Diagnosis [id number] [address] [address] [place], [place] [phone] 02/11/2024 SINAN KENNEY Plan Of Treatment No Information Progress Notes * Mimi ALBRECHTDOB:1950 (73 yo F)Acc No.[id number]:02/11/2024 Patient: Mimi BENTLEY :1950 A ge:73 Y S ex:Female Address:[facility] [address], [place], [address] * true * Date: Generated for Printi ng/Fajoyg/eTransmitting on: 05/23/2024 08:20 PM 3RD MATE
--- NOTE | 2025-03-23 11:06 | A.OFFPC_ITS ---
Vital Signs 03/23/25 11:07 Height 4 ft 8.6 in Weight 153 lb BMI 33.6 BP 136/76 Blood Pressure Location Rt brachial Position Sitting Pulse 88 Pulse Source Pulse Oximeter Temp 98.2 F Temp Source Oral Pulse Oximetry (%) 96 Oxygen Delivery Method Room Air Intake Visit Reasons: 2 wk f/u Intake Note: doing better on medication Assistant Therapy Aide Required: No Accompanied by: Self / Same As Patient Allergies empagliflozin (From Jardiance) Allergy (Mild, Verified 03/23/25 11:07) swollen lips gabapentin Allergy (Mild, Verified 03/23/25 11:07) swollen lips Tobacco use date assessed: 03/23/25 Fall risk assessment: No Falls in past year Last assessed Fall Risk: 03/23/25 Dental Screening Dental Screen Date: 03/23/25 Did you have a dental visit in the last 12 months?: Yes HPI HPI Comments History of Present Illness Details History of Present Illness The patient is a 74-year-old female presenting for follow-up for medication management. Neuropathic Pain: The patient has a history of neuropathic pain and has previously tried gabapentin and pregabalin without success or due to an allergic reaction. Diabetes: The patient has a history of diabetes, for which she has her next follow-up in three months. hypertension comes in with bp log which have been scanned in bps wnl currently on losartan 50mg bid Social History: - The patient plans to travel from [facility] and will return in July. Past Medical History - Diabetes - Neuropathic pain Health Maintenance - Will check liver function at the next follow-up visit. [facility] Medical History PVD (peripheral vascular disease) Diabetes mellitus type 2 with complications Chronic GERD without esophagitis Diabetic neuropathy GERD (gastroesophageal reflux disease) Hyperlipidemia Hypertension Diabetes mellitus type 2, controlled, without complications Family History Father No problems noted. Mother Stroke Social History Housing: House Alcohol intake: current Alcohol intake frequency: holidays/special occasions only Patient Tobacco Use Status: Never used Tobacco e-Cigarette/Vaping Use: Never Used service: No Current occupational status: retired Cognitive needs: Yes (cane) Hearing needs: No Vision needs: Yes (rx glasses) Questionnaire PHQ-9 Over the last 2 weeks, how often have you been bothered by any of the following problems? 1. Little interest or pleasure in doing things: not at all 2. Feeling down, depressed, or hopeless: not at all 3. Trouble falling or staying asleep, or sleeping too much: several days 4. Feeling tired or having little energy: not at all 5. Poor appetite or overeating: not at all 6. Feeling bad about yourself - or that you are a failure or have let yourself or your family down: not at all 7. Trouble concentrating on things, such as reading the newspaper or watching television: not at all 8. Moving or speaking so slowly that other people could have noticed. Or the opposite - being so fidgety or restless that you have been moving around a lot more than usual: not at all 9. Thoughts that you would be better off or of hurting yourself in some way: not at all Total score: 1 Source: Developed by Drs. Frank Jacob, Laura Bahena, Pramod Gustafson and colleagues, with an educational reece from [employer]. Thrive Questionnaire Date Thrive assessed: 03/23/25 I am a: Patient What is your living situation today?: I have a steady place to live Within the past 12 months, did the food you bought not last and you didn't have the money to get more?: I choose not to answer this question Within the past 12 months, did you worry whether your food would run out before you got money to buy more?: I choose not to answer this question Do you have trouble paying for medicines?: I choose not to answer this question Do you have trouble getting transportation to medical appointments?: I choose not to answer this question Do you have trouble paying your heating and electricity bill?: I choose not to answer this question Do you have trouble taking care of your child, family member or friend?: I choose not to answer this question Do you have trouble with day-to-day activities such as bathing, preparing meals, shopping, managing finances, etc.?: No Are you currently unemployed and looking for a job?: No Are you interested in more education?: No Please select the resources that you would like help with: None Currently or been in a relationship where the following occur: No concerns reported THRIVE Score: 0 J LUIS-7 AMB Questionnaire J LUIS-7 Date J LUIS - 7 assessed: 03/23/25 Source: Developed by Drs. Frank Jacob, Laura Bahena, Pramod Gustafson and colleagues, with an educational reece from [employer]. Review of Systems Narrative Review of Systems 10-point ROS reviewed and negative except as noted in HPI Physical exam (Primary Care) Vital Signs: Last Vital Signs Temp 98.2 F 03/23/25 11:07 Pulse 88 03/23/25 11:07 BP 136/76 03/23/25 11:07 Pulse Ox 96 03/23/25 11:07 Oxygen Delivery Method Room Air 03/23/25 11:07 BMI result Body Mass Index 33.6 Tobacco/Smoking Status: Tobacco use Status Tobacco use date assessed 03/23/25 03/23/25 11:10 Patient Tobacco Use Status Never used Tobacco 03/23/25 11:10 e-Cigarette/Vaping Use Never Used 03/23/25 11:10 PHQ-9: PHQ-9 Score PHQ-9: Total score 1 03/23/25 11:36 Thrive Assessment: Date of Thrive Assessment Date Thrive assessed 03/23/25 03/23/25 11:10 Currently or been in a relationship where the following occur: No concerns reported Narrative Physical Exam General: Well-appearing, in no acute distress. Vital signs: Within normal limits. HEENT: Normocephalic, atraumatic. PERRLA, EOMI. Conjunctiva clear, sclera anicteric. Oropharynx clear, mucous membranes moist. TMs intact bilaterally. Neck: Supple, no lymphadenopathy, no thyromegaly, no JVD or carotid bruits. Cardiovascular: RRR, normal S1/S2, no murmurs, rubs, or gallops. Peripheral pulses 2+ and symmetric. No edema. Respiratory: Lungs clear to auscultation bilaterally, no wheezes, rales, or rhonchi. Normal effort. Abdomen: Soft, non-tender, non-distended. Normoactive bowel sounds. No hepatosplenomegaly, no masses. MSK: Full range of motion, no joint swelling or deformity. Normal gait. Skin: Warm, dry, intact. No rashes, lesions, or pallor. Neuro: Alert and oriented x3. Cranial nerves II-XII intact. Strength 5/5 throughout. Sensation intact. Reflexes 2+ symmetric. Normal coordination and gait. Psych: Appropriate mood and affect. Normal judgment and insight. Office Procedures Flu Questionnaire Does the patient have a severe egg allergy?: No Does the patient have severe life threatening allergies?: No Does the patient have a fever or illness today?: No Has the patient ever had Guillain-Issaquah Syndrome?: No Has the patient ever had any past reaction to a flu shot?: No Immunizations Fluarix [id number] (PF) 45 mcg (15 mcg x 3)/0.5 mL IM syringe Performing Provider: Lee Becerra MD Performing Location: [facility] Documented (not given) by: Alize Gonzalez CMA on 03/23/25 11:26 Reason Not Given: Patient Refused Coding Level of Care Code Est Pt Level 3 (96614) Diagnoses Hypertension I10 Hyperlipidemia E78.5 Diabetes mellitus type 2 with complications E11.8 Diabetic neuropathy E11.40 Assessment & Plan Assessment & Plan (1) Hypertension: Code(s): I10 - Essential (primary) hypertension Category: Medical (2) Hyperlipidemia: Code(s): E78.5 - Hyperlipidemia, unspecified Category: Medical (3) Diabetes mellitus type 2 with complications: Code(s): E11.8 - Type 2 diabetes mellitus with unspecified complications Category: Medical (4) Diabetic neuropathy: Code(s): E11.40 - Type 2 diabetes mellitus with diabetic neuropathy, unspecified Category: Medical Plan Consent Patient was informed and verbally consented to the use of an ambient scribe for clinic note documentation during this visit. Plan 1. Neuropathic Pain - As gabapentin and pregabalin were not effective, a trial of duloxetine will be initiated for neuropathic pain. - Other alternatives considered include Duloxetine, amitriptyline and nortriptyline. - pt refused at this time she wants to try otc supplements first 2. Diabetes - Current management will be continued as lab results are stable. - Follow-up is scheduled in three months she will be leaving to [place] on Apr 09July 2025 - we agreed to have labs drawn for a visit in the beginning of April before she leaves Discussion Notes I discussed initiating a trial of duloxetine for the patient's neuropathic pain, as previous treatments with gabapentin and pregabalin were unsuccessful. I also mentioned that amitriptyline and nortriptyline are other potential options. She does not want to start medication at this time she wants to trial otc supplementation. Her diabetes management will remain unchanged. Follow-up will occur in July upon her return from travel. Patient Instructions - agreed to trial her otc supplementation with lab monitoring - You can try the natural supplement you asked about. - Follow up for a visit when you return in July. - We will check your labs on next appt before you leave Medical Decision Making The patient is a 74-year-old female with neuropathic pain that has been refractory to trials of both gabapentin and pregabalin. Given the lack of efficacy or intolerance to previous agents, Alternative options such as Duloxetine , amitriptyline or nortriptyline were also considered.she does not want to trial any medication at this time due to side effects she wants to trial supplements which we agreed on with lab monitoring The patient's diabetes appears to be well-controlled on her current regimen, and no changes are warranted at this time. Total Time Statement 20 min Total time spent caring for the patient today includes pre-visit chart review, documentation, review of laboratory and diagnostic imaging results, medication reconciliation, medically necessary evaluation, counseling on diagnoses, care coordination, ordering appropriate tests and medications, review of tests performed by other providers, reporting test results to the patient, and communication with other healthcare providers. Orders: Orders Influenza [id number] Immunization Today Z23 - Encounter for immunization Hemoglobin A1c 03/28/25 E11.8 - Type 2 diabetes mellitus with unspecified complications Comprehensive Met. Panel 03/28/25 E11.8 - Type 2 diabetes mellitus with unspecified complications
[2025-03-23 11:07] VITALS: BP 136/76; PULSE 88; TEMP 36.8; O2SAT 96; BMI 33.6
--- OUTSIDE RECORDS SUMMARY | 2025-03-23 21:19 | XMS_ITS | Clinical Summary ---
Author Organization [facility] Address [address] [place] [address] Care Team Providers Care Accounts Payable Supervisor Name Role Phone Chiki Jarquin DO Primary Care Provider [phone] Pravin Davis MD Unavailable Allergies Active Allergy [...] patient's age to complete this topic Insurance [facility] Care Teams Accounts Payable Supervisor Relationship Specialty Start Date End Date Chiki Jarquin DO [address] [place], [place] [id number] PCP - General Internal Medicine 09/10/24 Pravin Davis MD [address] [place] [address] Primary Primer Press Operator Cardiovascular Disease 11/18/24
--- OUTSIDE RECORDS SUMMARY | 2025-03-23 21:19 | XMS_ITS | Encounter Summary ---
Author Organization [facility] Address [address] [place] [address] Care Team Providers Care Finished Metal Repairer Name Role Phone JenniferZenia fletcheralberto HAMILTON Primary Care Provider + Pravin Davis MD Unavailable Encounter Details Date Type Department Care Team (Late st Contact Info) Description 09/08/2024 Scanned Document [facility] V[facility] [address] [address] Primary Care, Scan Social History Tobacco Use [...] on filedocumented in this encounter Care Teams Finished Metal Repairer Relationship Specialty Start Date End Date Chiki Jarquin DO [address] [place] [address] PCP - General Internal Medicine 09/10/24 Pravin Davis MD [address] [place] [address] Primary Doors Prefitter Cardiovascular Disease 11/18/24 documented as of this encounter
--- OUTSIDE RECORDS SUMMARY | 2025-03-23 21:20 | XMS_ITS | Clinical Summary ---
Author Organization [facility] Address [address] [place] [address] Phone Care Team Providers Care Book Trimmer Name Role Phone Chiki Jarquin DO Primary Care Provider [phone] Social History Tobacco Use Types Packs/Day Years [...] Health Screening 08/13/2024 COVID-19 Vaccine ( - 2024-2 6 season) 2025 Influenza Vaccine (#1) 2025 RSV [...] complete this topic Insurance [place] [address] Care Teams Book Trimmer Relationship Specialty Start Date End Date Chiki Jarquin DO [address] [place] [address] PCP - General Internal Medicine 10/06/24
--- OUTSIDE RECORDS SUMMARY | 2025-03-23 21:20 | XMS_ITS | Patient Health Record ---
Author Organization [facility] Address [address] [place] [address] Care Team Providers Care Litigation Services Manager Name Role Phone Niraj Anna MD Primary Care Provider [phone] Allergies Allergen (clinical drug ingredient) Drug/Non Drug [...] Pt uses ambulatory a ssisted device(s): No Travel outside of the [place]: In the last six months: none Patient/Family Concerns: Concerns regard ing abuse and/or neglect No Domestic Violence: none Seatbelt Use: Uses seatbelt everytime? Yes [...] W/U Status Risk Notes Problem Mixed hyperlipidemia (395511890) Mixed hyperlipidemia (E78.2) Active confirmed Problem Primary insomnia (6073791) Primary insomnia (F51.01) Active confirmed Problem Gastroesophageal reflux disease (109994766) GERD without esophagitis (K21.9) Active confirmed Problem Essential hypertension (37777789) Essential (primary) hypertension (I10) Active confirmed Problem Polyneuropathy due to type 2 diabetes mellitus (895947799) Type 2 diabetes mellitus with diabetic polyneuropathy, without long-term current use of insulin (E11.42) Active confirmed Problem Type 2 diabetes mellitus with other specified complication, unspecified whether residential insulin use (E11.69) Active confirmed Problem Screening procedure () Due for screening (Z13.9) Active confirmed Plan Of Treatment Future Test Test Name Order Date Hemoglobin A1C 10/17/2023 Complete Blood Count With Differential W ith Reflex to Smear Review (CBC) 10/17/2023 Lipid Panel Without Ratio 10/17/2023 Comprehensive Metabolic Panel 14 (CMP) 0 10/17/2023 Insurance Providers Payer Name Payer Address Payer Phone Subscriber Number Group Number Insured Name Patient Relationship to Insured Coverage Start Date Coverage End Date [id number] [facility] [address] [address] [place], [place] [id number] [phone] Mimi Vallejo Self - patient is the insured Medical (General) History Medical History History ICD Code diabetes high cholesterol hypertension acid reflux insomnia neuropathy mammogram: 2022 in [place] Colonoscopy: 2020: in [place], repeat in 2025 Surgical History Surgery Date(Month/Year) C section 1986 Hospitalization History Reason Date(Month/Year) 3 child 1973,1983, 1986 hypertension 2020
--- OUTSIDE RECORDS SUMMARY | 2025-03-23 21:20 | XMS_ITS | Patient Health Record ---
Author Organization [facility] Address [address] [place] [address] Care Team Providers Care Hand Printed Circuit Board Assembler Name Role Phone Sinan Kenney Primary Care Provider SINAN Olivas Unavailable [phone] Allergies Allergen (clinical drug ingredient) Drug/Non Drug [...] Problem Status W/U Status Risk Notes Problem 827301019 Overweight (E66.3) Active confirmed Problem 945924252 Mixed hyperlipid emia (E78.2) Active confirmed Problem 283225066 Dietary counseli ng and surveillance (Z71.3) Active confirmed Problem 91523454 Essential hypertension (I10) Active confirmed Problem 687549994 Chronic insomnia (F51.04) Active confirmed Problem 885540566 Gastroesophageal reflux disease without esophagitis (K21.9) Active confirmed Problem 862566903 BMI 28.0-28.9,ad ult (Z68.28) Active confirmed Problem 67911116 Lipoma of scalp (D17.0) Active confirmed Problem 320960380 Edema of both fe et (R60.0) Active confirmed Problem Diabetic peripheral neuropathy associated with type 2 diabetes mellitus (7068412646546 ) Type 2 diabetes mellitus with diabetic neuropathy, without long-term current use of insulin (E11.40) Active confirmed Problem 999224142 Osteopenia of multiple sites (M85.89) Active confirmed Problem 64024156 Type 2 diabetes mellitus with other specified complication, without long-term current use of insulin (E11.69) Active confirmed Plan Of Treatment Future Test Test Name Order Date Hemoglobin A1c ([id number]) 01/05/2024 Comp. Metabolic Panel (14) ([id number]) Insurance Providers Payer Name Payer Address Payer Phone Subscriber Number Group Number Insured Name Patient Relationship to Insured Coverage Start Date Coverage End Date [facility] MEDICARE [id number] [address] [address] [place], [place] [id number] Mimi Vallejo Self - patient is the insured Medical (General) History Medical History History ICD Code HTN DM II DM Neuropathy HLD HTN Osteopenia GERD
== END 2025-03-23 11:35 | disposition home or self-care (01) ==
LOC: HO.HMCFMS 10:49
PROVIDERS: PCP Student in an Organized Health Care Education/Training Program; Visit Provider Student in an Organized Health Care Education/Training Program
DX: I10 Essential (primary) hypertension (principal); E78.5 Hyperlipidemia, unspecified; E11.8 Type 2 diabetes mellitus with unspecified complications; E11.40 Type 2 diabetes mellitus with diabetic neuropathy, unspecified; Z23 Encounter for immunization

== ENCOUNTER → 2025-03-23 10:49 | Outpatient (BNVA) | payer OTHER, SELFPAY | PROVIDERS: PCP Student in an Organized Health Care Education/Training Program; Visit Provider Student in an Organized Health Care Education/Training Program | DX: I10 Essential (primary) hypertension (principal); E78.5 Hyperlipidemia, unspecified; E11.40 Type 2 diabetes mellitus with diabetic neuropathy, unspecified; Z13.31 Encounter for screening for depression; Z13.39 Encounter for screening examination for other mental health and behavioral disorders | CPT/HCPCS: 90471; 96127; 99212 ==

== ENCOUNTER 2025-03-28 08:54 | Outpatient (REF) | payer OTHER, SELFPAY ==
--- OUTSIDE RECORDS SUMMARY | 2025-03-28 09:33 | XMS_ITS | Clinical Summary ---
Author Organization [facility] Address [address] [place] [address] Care Team Providers Care Nuclear Equipment Operator Name Role Phone Chiki Jarquin DO Primary Care Provider [phone] Pravin Davis MD Unavailable Allergies Active Allergy [...] patient's age to complete this topic Insurance [facility] MEDICARE Care Teams Nuclear Equipment Operator Relationship Specialty Start Date End Date Chiki Jarquin DO [address] [place], [place] [phone] PCP - General Internal Medicine 09/10/24 Pravin Davis MD [address] [place] [address] Primary Area Development Consultant Cardiovascular Disease 11/18/24
--- OUTSIDE RECORDS SUMMARY | 2025-03-28 09:33 | XMS_ITS | Encounter Summary ---
Author Organization [facility] Address [address] [place] [address] Care Team Providers Care Printing Gray Cloth Tender Name Role Phone Unavailable Primary Care Provider Unavailabl e Prior Encounters Date Type Department Care Team Description 01/11/2025 3:00 PM PDT Office Visit Dentists [address] [address] Dexter Quintero DDS 01/05/2025 10:30 AM PDT Office Visit Dentists [address] [address] Dexter Quintero DDS 12/21/2024 2:00 PM PDT Office Visit Dentists [address] [address] Dexter Quintero DDS 12/16/2024 1:15 PM PDT Office Visit Dentists [address] [address] Michelle Graves [facility] 12/15/2024 10:00 AM PDT Office Visit Dentists [address] [address] Dexter Quintero DDS 10/09/2022 11:30 AM PDT Office Visit [facility] [address] [facility] [place] [address] Ana Maria Pennington DMD Last Filed Vital Signs Vital Sign Reading Time Taken Comments Blood Pressure 148/96 10/09/2022 11:37 AM PDT Pulse 81 10/09/2022 11:37 AM PDT Temperature - - Respiratory Rate - - Oxygen Saturation - - Inhaled Oxygen Concentration - - Weight - - Height - - Body Mass Index - - Plan of Treatment Not on file Procedures Procedure Name Priority Date/Time Associated Diagnosis [...] - ADULT Routine 12/15/2024 10:00 AM PDT LEAD FIRE PROTECTION ENGINEER FOUR BITEWING XRAYS Routine 10:00 AM PDT NEW PATIENT INTRAORAL - PERIAPICAL FIRST RADIOGRAPHIC IMAGE Routine 12/15/2024 10:00 AM PDT LEAD FIRE PROTECTION ENGINEER CBCT Routine 12/15/2024 10:00 AM PDT ORAL [...] DENTOGNOSTICS Visit Diagnoses Not on file [facility]
--- OUTSIDE RECORDS SUMMARY | 2025-03-28 09:33 | XMS_ITS | Encounter Summary ---
Author Organization [facility] Address [address] [place] [address] Care Team Providers Care Diabetes Trainer Name Role Phone JenniferZenia fletcheralberto HAMILTON Primary Care Provider + Pravin Davis MD Unavailable Encounter Details Date Type Department Care Team (Late st Contact Info) Description 09/08/2024 Scanned Document [facility] Heart & Vascular [address] [address] Primary Care, Scan Social History Tobacco Use [...] on filedocumented in this encounter Care Teams Diabetes Trainer Relationship Specialty Start Date End Date Chiki Jarquin DO [address] [place] [address] PCP - General Internal Medicine 09/10/24 Pravin Davis MD [address] [place] [address] Primary Minor League Baseball Player Cardiovascular Disease 11/18/24 documented as of this encounter
--- OUTSIDE RECORDS SUMMARY | 2025-03-28 09:33 | XMS_ITS | Clinical Summary ---
Author Organization [facility] Address [address] [place] [address] Care Team Providers Care Instrument And Controls Technician Name Role Phone Unavailable Primary Care Provider [...] 01/11/2025 3:00 PM PDT Office Visit Dentists [address] [address] Dexter Quintero DDS 01/05/2025 10:30 AM PDT Office Visit Dentists [address] [address] Dexter Quintero DDS from Last 3 Months [...] Mass Index - - Plan of Treatment Health Maintenance Due Date [...] CEMENT BRIDGE Routine 01/05/2025 10:30 AM PDT UR PERIODONTAL SCALING AND ROOT PLANING - FOUR OR MORE TEETH PER QUADRANT Routine 12/16/2024 1:15 PM PDT FIELD RESEARCH ASSISTANT CBCT Routine 12/15/2024 10:00 AM PDT NEW PATIENT ORALFITNESSCHECK INITIAL SCREEN Routine 12/15/2024 10:00 AM PDT NEW PATIENT SPECIAL EXAM - ADULT Routine 12/15/2024 10:00 AM PDT PANORAMIC RADIOGRAPHIC IMAGE Routine 10/09/2022 11:30 AM PDT INTRAORAL - COMPREHENSIVE SERIES OF RADIOGRAPHIC IMAGES Routine 10/09/2022 11:30 AM PDT from Last 3 Months or Most Recently Relevant to Health Maintenance [facility]
--- OUTSIDE RECORDS SUMMARY | 2025-03-28 09:33 | XMS_ITS | Clinical Summary ---
Author Organization [facility] Address [address] [place] [address] Phone Care Team Providers Care Supervisory Training Specialist Name Role Phone Chiki Jarquin DO Primary Care Provider [phone] Social History Tobacco Use Types Packs/Day Years [...] topic Insurance [employer] MEDICARE Care Teams Supervisory Training Specialist Relationship Specialty Start Date End Date Chiki Jarquin DO [address] [place] [id number] PCP - General Internal Medicine 10/06/24
[2025-03-28 15:47] LABS: Alanine Aminotransferase 14 U/L (0-31); Albumin Level 4.7 g/dL (3.5-5.0); Alkaline Phosphatase 57 U/L (39-117); Anion Gap 14 (12-20); Aspartate Amino Transferase 21 U/L (5-31); Blood Urea Nitrogen 8 mg/dL (9-16); Calcium 10.1 mg/dL (8.4-10.2); Carbon Dioxide 25 mmol/L (22-29); Chloride 107 mmol/L (96-108); Estimated Glomerular Filt Rate > 60; Potassium 4.3 mmol/L (3.3-5.1); Sodium 142 mmol/L (135-145); Total Protein 7.5 g/dL (6.5-8.0)
== END 2025-03-28 08:55 | disposition home or self-care (01) ==
LOC: HO.HKASLDS 08:54
PROVIDERS: PCP Student in an Organized Health Care Education/Training Program; Visit Provider Student in an Organized Health Care Education/Training Program
DX: E11.8 Type 2 diabetes mellitus with unspecified complications (principal)
CPT/HCPCS: 36415; 80053; 83036

== ENCOUNTER 2025-04-07 14:35 | Outpatient (AMB) | payer OTHER, SELFPAY ==
--- OUTSIDE RECORDS SUMMARY | 2023-10-20 04:15 | XMS_ITS ---
Author Organization [employer] Address [address] [place] [address] Care Team Providers Care Project Surveyor Name Role Phone Wilfrido SUNG, Niraj Primary Care Provider [phone] Edson Garces PA-C [phone] REASON FOR VISIT 3m fasting labs Encounters Encounter Location Date Provider Diagnosis [facility] [address] [place] [id number] 10/20/2023 Edson Garces Plan Of Treatment No Information Progress Notes * Mimi ALBRECHTDOB:1950 (74 yo F)Acc No.[id number]:10/20/2023 UNLOCKED PROGRESS NOTE Patient: Mimi Gleason Provider: Solange Garces PA-C :1950 A ge:73 Y S ex:Female Date:10/20/2023 Address:[facility] [place] [facility] [id number] Pcp:Niraj Anna MD Subjective: * Chief Complaints: * 3 m fasting labs Objective: Past Vitals:* 07/21/2023 BP:sittin/59mm Hg, RR:1 6/min, Pulse:sittin/min, Temp:oral:97.3F, Ht:56in, Wt:148.2lbs, BMI:33.22Index, Oxygen Sat:Room Air:98%, Pain Scale:01-10 * Electronic signature of Vlad Garces PA-C, PA-C on 04/07/2025 at 07:38 PM GED INSTRUCTOR Sign off status: Pending * Provider: Solange Garces PA-C Date: 0 10/20/2023 Generated for Anjali madison/Lv/Isabelle on: 1 06/08/2024 07:38 PM GED INSTRUCTOR
--- OUTSIDE RECORDS SUMMARY | 2023-11-19 06:06 | XMS_ITS ---
Author Organization [facility] Billing Info Address [address] [place], [place] [address] Care Team Providers Care Regulatory Assistant Name Role Phone Sinan Kenney Primary Care Provider SINAN Olivas Unavailable [phone] REASON FOR VISIT Rybelsus and refill for [...] Active Encounters Encounter Location Date Provider Diagnosis [id number] [facility] [address]489 I[address] [place], [place] [address] 11/19/2023 SINAN KENNEY Type 2 diabetes mellitus [...] started as sample; PA Approved; Rx #: [id number] Progress Notes * Mimi ALBRECHTDOB:1950 (73 yo F)Acc No.[id number]:11/19/2023 Patient: Mimi BENTLEY :1950 A ge:73 Y S ex:Female Address:[address] [place] [address], [place], [address] * Refills Refill Glucose Test Strips - [...] * Date: Generated for Anjali madison/Lv/eTransmitting on: 06/08/2024 07:25 PM AUCTIONEER ART
--- OUTSIDE RECORDS SUMMARY | 2023-12-03 09:15 | XMS_ITS ---
Author Organization [facility] Billing Info Address [address] [place], [place] [address] Care Team Providers Care Assistant Principal Name Role Phone Sinan Kenney Primary Care Provider UnavailSINAN Vanegas Unavailable [phone] DOMINIC SHANKS Unavailable [phone] REASON FOR VISIT leg pain ..vfj 064276 Encounters Encounter Location Date Provider Diagnosis [id number] [place] [address] [facility] [address] IH [address] [place], [place] [address] 12/03/2023 DOMINIC SHANKS Plan Of Treatment No Information Progress Notes * Mimi ALBRECHTDOB:1950 (74 yo F)Acc No.[id number]:12/03/2023 PROGRESS NOTE Patient: Mimi BENTLEY Provider: MOSHE Pace :1950 A ge:73 Y S ex:Female Date:12/03/2023 C HN#:[id number] Address:[address], [id number] Pcp:Sinan Kenney Patient's Default Facility:[address] [place] [address] [facility] Subjective: * Chief Complaints: * 1 . Leg pain ..vfj 001277. * Medical History: Objective: * Vitals: Assessment: Plan: * Treatment: * Care Plan Details* * This progress note has not b een verified nor is it considered complete until locked and signed by the provider. Sign off status: Pending * Provider: Maday Shanks, MOSHE Date: 0 12/03/2023 Generated for Anjali madison/Lv/Isabelle on: 06/08/2024 07:38 PM MAITRE D
--- OUTSIDE RECORDS SUMMARY | 2023-12-04 08:06 | XMS_ITS ---
Author Organization [facility] Physician Servic es Billing Info Address [address] [place], [place] [address] Care Team Providers Care Freelance Recruiter Name Role Phone Sinan Ken[place] Primary Care Provider Unavailabl SINAN Godinez Unavailable [phone] REASON FOR VISIT elevated b/p Encounters Encounter Location Date Provider Diagnosis [id number] [address]1358 [address] [place], [place] [address] 12/04/2023 SINAN KENNEY Plan Of Treatment No Information Progress Notes * Mimi ALBRECHTDOB:1950 (73 yo F)Acc No.[id number]:12/04/2023 Patient: Mimi BENTLEY :1950 A ge:73 Y S ex:Female Address:[address], [place], [address] * true * Date: Generated for Printi ng/Faxing/eTransmitting on: 06/08/2024 07:37 PM OBGYN NURSE
--- OUTSIDE RECORDS SUMMARY | 2023-12-04 08:15 | XMS_ITS ---
Author Organization [facility] Billing Info Address [address] [place], [place] [address] Care Team Providers Care Loftsman Name Role Phone Unruly Kenney Primary Care Provider Unavailabl e UNRULY KENNEY Unavailable [phone] DOMINIC SHANKS Unavailable [phone] Allergies Allergen (clinical drug ingredient) Drug/Non Drug Allergy documented on EMR Reaction Allergy Type Onset Date Status empagliflozin Jardiance nausea/vomiting Drug Allergy Active trazodone Trazodone intolerance Drug Allergy Activ e Reason For Referral Reason eval and treat Diagnosis 1 Left lumbar radiculo chuy (M54.16) Referral Organization [id number] [facility] Referring Provider First Name DOMINIC Referring Provider Last Name DIMITRIS Referring Provider Speciality Nurse Prac titioner Referred Provider [facility] Referred Provider Specialty Physical The rapy General Notes KRISTI JACOBS 01:23:31 PM >eval and treat [facility] Clinical Notes KRISTI JACOBS 02:47:05 PM >left message for patient to call and schedule an appointment with specialist, KRISTI VICENTE 12/11/2023 10:27:43 AM >rerouted per patientJULES MELISSA 12/11/2023 10:29:43 AM >left message for patient to call and schedule an appointment with specialist Referral Priority Routine REASON FOR VISIT Lt glut / leg pain x 3/d w/ radiculapathy [id number] Medications Medication SIG (Take, Route, Frequency, Duration) [...] 12/04/2023 Encounters Encounter Location Date Provider Diagnosis [id number] [address] [address] [place], [place] [id number] 12/04/2023 DOMINIC SHANKS Left lumbar radiculopathy M54.16 [...] 12/04/2023, eval and treat, [facility] [place] Next Appt Details Follow Up: prn, Reason: Progress Notes * Mimi ALBRECHTDOB:1950 (73 yo F)Acc No.[id number]:12/04/2023 PROGRESS NOTE Patient: Mimi BENTLEY Provider: MOSHE Pace :1950 A ge:73 Y S ex:Female Date:12/04/2023 C #:[id number] Address:[address] [place] [address], [id number] Pcp:Unruly Kenney Patient's Default Facility:[address] [place] [address] [facility] Subjective: * Chief Complaints: * L t glut / leg pain x 3/d w/ radiculapathy [id number] * HPI: F irst Point of Contact [...] or a close contact traveled outside the [facility] and you are now ill? N o [...] pain. Pt has a pending trip to [place]. * Medical History: * Surgical History: N [...] ast Orders: L ab:Comp. 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 Increased pain in standing/walking position. Aggravated by rolling over in bed. No hx of similar problems. Pt with chronic mild bilateral low back pain. Pt has a pending trip to [place]. First Point of Contact Screening Do any [...]
--- OUTSIDE RECORDS SUMMARY | 2023-12-08 04:49 | XMS_ITS ---
Author Organization [facility] Billing Info Address [address] [place], [place] [address] Care Team Providers Care Department Administrator Name Role Phone Sinan Kenney Primary Care Provider SINAN Olivas Unavailable [phone] REASON FOR VISIT New Referral Encounters Encounter Location Date Provider Diagnosis [id number] [address] [address] [place], [place] [address] 12/08/2023 SINAN KENNEY Plan Of Treatment No Information Progress Notes * Mimi ALBRECHTDOB:1950 (73 yo F)Acc No.[id number]:12/08/2023 Patient: Mimi BENTLEY :1950 A ge:73 Y S ex:Female Address:[address], [place], [address] * true * Date: Generated for Printi ng/Faxing/eTransmitting on: 06/08/2024 07:37 PM AWNING HANGER HELPER
--- OUTSIDE RECORDS SUMMARY | 2023-12-18 04:03 | XMS_ITS ---
Author Organization [facility] Billing Info Address [address] [place], [place] [address] Care Team Providers Care Crop Or Livestock Tenant Farmer Name Role Phone Unruly Kenney Primary Care Provider UNRULY Olivas [facility] [phone] REASON FOR VISIT Refill Medications Medication SIG (Take, Route, Frequency, Duration) Notes Start Date End Date Status Amlodipine Besylate 10 MG 1 tablet Orally Once a day Active Encounters Encounter Location Date Provider Diagnosis 065384[facility] [address] [address] [place], [place] [address] 12/18/2023 UNRULY KENNEY Essential hypertensi on I10 [...] Notes * AMBROCIO MimiDOB:1950 (73 yo F)Acc No.[id number]:12/18/2023 Patient: Mimi BENTLEY :1950 A ge:73 Y S ex:Female Address:[facility] [address], [place], [address] * Refills Refill Amlodipine Besylate Tablet, 10 MG, Orally, 1 tablet, Once a day Stop Telmisartan-HCTZ Tablet, 80-12.5 MG, Orally, 1 tablet, Once a day in AM for high blood pressure * true * Date: Generated for Anjali madison/Lv/Isabelle on: 06/08/2024 07:29 PM WIRE DRAWING SETTER
--- OUTSIDE RECORDS SUMMARY | 2024-01-14 09:00 | XMS_ITS ---
Author Organization [facility] Billing Info Address [address] [place], [place] [address] Care Team Providers Care Linux Kernel Developer Name Role Phone Sinan Kenney Primary Care Provider SINAN Olivas [facility] [phone] Allergies Allergen (clinical drug ingredient) Drug/Non Drug [...] smoker Encounters Encounter Location Date Provider Diagnosis [id number] [facility] [address] [address] [place], [place] [phone] 01/14/2024 SINAN KENNEY Assessments Encounter Date Diagnosis (ICD Code) Assessment Notes Treatment Notes Treatment Clinical Notes Section Notes 01/14/2024 Other A Healthy Lifestyle: Care Instructions material was published Plan Of Treatment Treatment Notes Assessment Notes Other A Healthy Lifestyle: Care Instructions material was published Progress Notes * Mimi ALBRECHTDOB:1950 (74 yo F)Acc No.[id number]:01/14/2024 PROGRESS NOTE Patient: Mimi BENTLEY Provider: Tamar KENNEY MD :1950 A ge:73 Y S ex:Female Date:01/14/2024 C HN#:[id number] Address:[facility] [address], [place] [phone] Pcp:Sinan Kenney Patient's Default Facility:[address] [place] [address] [facility] Subjective: * Chief Complaints: * [...] 0 01/14/2024 Generated for Anjali madison/Lv/Estivensmitting on: 1 06/08/2024 07:37 PM AIR TRAFFIC CONTROL OPERATOR History and Physical Notes * HPI (History [...] now ill? : No OFFICE USE (If EndPlay is not in place, provide patients age 2 years and older with a facemask to wear over their mouth and nose while in the practice.):: Patient answered no to all questions OR only answered yes to question 1 No further action needed : 01/14/2024
--- OUTSIDE RECORDS SUMMARY | 2025-04-05 04:37 | XMS_ITS ---
Author Organization [facility] Physician [facility] es Billing Info Address [address] [place], [place] [id number] Care Team Providers Care Compliance Manager Name Role Phone Unruly Kenney Primary Care Provider UnavailUNRULY Vanegas Unavailable [phone] REASON FOR VISIT not been seen Encounters Encounter Location Date Provider Diagnosis [id number] [address] [place], [place] [id number] 04/05/2025 UNRULY KENNEY Plan Of Treatment No Information Progress Notes * AMBROCIO MimiDOB:1950 (74 yo F)Acc No.[id number]:04/05/2025 Patient: Mimi BENTLEY :1950 A ge:74 Y S ex:Female Address:[facility] [address], [place], [address] * * Date:
--- NOTE | 2025-04-07 14:38 | A.OFFPC_ITS ---
Vital Signs 04/07/25 14:43 Height 4 ft 8.6 in Weight 152 lb BMI 33.4 BP 148/65 H Blood Pressure Location Rt brachial Position Sitting Respiration 18 Pulse 80 Pulse Source Pulse Oximeter Temp 98 F Temp Source Oral Pulse Oximetry (%) 99 Oxygen Delivery Method Room Air Intake Visit Reasons: 2 week follow up/ DM Intake Note: Patient present for DM follow up, patient is still missing omeprazole and lancets Chief Technician Required: No Chief Technician Name: Doctor speaks sammarinese Accompanied by: Self / Same As Patient Allergies empagliflozin (From [facility]) Allergy (Mild, Verified 04/07/25 14:41) swollen lips gabapentin Allergy (Mild, Verified 04/07/25 14:41) swollen lips Tobacco use date assessed: 03/23/25 Fall risk assessment: No Falls in past year Last assessed Fall Risk: 04/07/25 Dental Screening Dental Screen Date: 03/23/25 HPI HPI Comments History of Present Illness Details History of Present Illness The patient is a 74 year old female presenting for a follow-up visit for management of diabetes and review of laboratory results. Diabetes Mellitus: The patient's hemoglobin A1c was 7.6% on February 02 and has since improved to 7.2% on repeat testing two months later. She has been developing symptoms of hand numbness, which have been attributed to diabetic neuropathy. White Coat Hypertension: The patient's blood pressure was noted to be elevated during the office visit. She reports that her blood pressure readings are normal at home, suggesting a white coat effect. Diabetic Neuropathy: The patient reports experiencing numbness in her hands and questioned if it was due to poor circulation. Social History: - The patient is planning a trip for [employer] [place] two months. Diagnostic Results: - Labs: - Hemoglobin A1c was 7.6% on February 02 . - Hemoglobin A1c was 7.2% on repeat test ing approximately two months later. Past Medical History - Diabetes Mellitus Health Maintenance - The patient was educated on the import ance of aggressive glycemic control to prevent long-term complications of diabetes. - Recommendations for diabetic foot care were provided, including daily self-examination of feet, wearing appropriate socks and shoes, and undergoing an annual podiatry evaluation to prevent complications such as ulcers and infections. [facility] Medical History PVD (peripheral vascular disease) Diabetes mellitus type 2 with complications Chronic GERD without esophagitis Diabetic neuropathy GERD (gastroesophageal reflux disease) Hyperlipidemia Hypertension Diabetes mellitus type 2, controlled, without complications Family History Father No problems noted. Mother Stroke Social History (Updated 04/07/25 @ 14:42 by Blanco Munoz CMA) Housing: House Alcohol intake: current Alcohol intake frequency: holidays/special occasions only Patient Tobacco Use Status: Never used Tobacco e-Cigarette/Vaping Use: Never Used service: No Current occupational status: retired Cognitive needs: Yes (cane) Hearing needs: No Vision needs: Yes (rx glasses) Questionnaire Thrive Questionnaire Date Thrive assessed: 02/02/25 I am a: Patient What is your living situation today?: I have a steady place to live Within the past 12 months, did the food you bought not last and you didn't have the money to get more?: I choose not to answer this question Within the past 12 months, did you worry whether your food would run out before you got money to buy more?: I choose not to answer this question Do you have trouble paying for medicines?: I choose not to answer this question Do you have trouble getting transportation to medical appointments?: I choose not to answer this question Do you have trouble paying your heating and electricity bill?: I choose not to answer this question Do you have trouble taking care of your child, family member or friend?: I choose not to answer this question Do you have trouble with day-to-day activities such as bathing, preparing meals, shopping, managing finances, etc.?: No Are you currently unemployed and looking for a job?: No Are you interested in more education?: No Please select the resources that you would like help with: None Currently or been in a relationship where the following occur: No concerns reported THRIVE Score: 0 J LUIS-7 AMB Questionnaire J LUIS-7 Date J LUIS - 7 assessed: 03/23/25 Source: Developed by Drs. Frank Jacob, Laura Bahena, Pramod Gustafson and colleagues, with an educational reece from [employer] Review of Systems Narrative Review of Systems - Neurological: Reports numbness in her hands. - Cardiovascular: She reports that her blood pressure is elevated in the office but normal at home. - Skin: Reports bruising after blood draws. - Constitutional: Denies other complaints and generally feels well. 10-point ROS reviewed and negative except as noted in HPI Physical exam (Primary Care) Vital Signs: Last Vital Signs Temp 98 F 04/07/25 14:43 Pulse 80 04/07/25 14:43 Resp 18 04/07/25 14:43 BP 148/65 H 04/07/25 14:43 Pulse Ox 99 04/07/25 14:43 Oxygen Delivery Method Room Air 04/07/25 14:43 BMI result Body Mass Index 33.4 Tobacco/Smoking Status: Tobacco use Status Tobacco use date assessed 03/23/25 04/07/25 14:39 Patient Tobacco Use Status Never used Tobacco 04/07/25 14:42 e-Cigarette/Vaping Use Never Used 04/07/25 14:42 Thrive Assessment: Date of Thrive Assessment Date Thrive assessed 02/02/25 04/07/25 14:39 Currently or been in a relationship where the following occur: No concerns reported Narrative Physical Exam General: Well-appearing, in no acute distress. Vital signs: Blood pressure noted to be high during the visit, but patient reports normal readings at home. HEENT: Normocephalic, atraumatic. PERRLA, EOMI. Conjunctiva clear, sclera anicteric. Oropharynx clear, mucous membranes moist. TMs intact bilaterally. Neck: Supple, no lymphadenopathy, no thyromegaly, no JVD or carotid bruits. Cardiovascular: RRR, normal S1/S2, no murmurs, rubs, or gallops. Peripheral pulses 2+ and symmetric. No edema. Respiratory: Lungs clear to auscultation bilaterally, no wheezes, rales, or rhonchi. Normal effort. Abdomen: Soft, non-tender, non-distended. Normoactive bowel sounds. No hepatosplenomegaly, no masses. MSK: Full range of motion, no joint swelling or deformity. Normal gait.uses cane Skin: Warm, dry, intact. No rashes, lesions, or pallor. Patient reports occasional hand numbness, possibly related to diabetes. Neuro: Alert and oriented x3. Cranial nerves II-XII intact. Strength 5/5 throughout. Sensation intact. Reflexes 2+ symmetric. Normal coordination and gait. Psych: Appropriate mood and affect. Normal judgment and insight. Coding Level of Care Code Est Pt Level 3 (89230) Diagnoses Hypertension I10 Diabetes mellitus type 2, controlled, without complications E11.9 Chronic GERD without esophagitis K21.9 Diabetic neuropathy E11.40 Assessment & Plan Assessment & Plan (1) Hypertension: Code(s): I10 - Essential (primary) hypertension Category: Medical (2) Diabetes mellitus type 2, controlled, without complications: Code(s): E11.9 - Type 2 diabetes mellitus without complications Category: Medical (3) Chronic GERD without esophagitis: Code(s): K21.9 - Gastro-esophageal reflux disease without esophagitis Category: Medical (4) Diabetic neuropathy: Code(s): E11.40 - Type 2 diabetes mellitus with diabetic neuropathy, unspecified Category: Medical Plan Consent Patient was informed and verbally consented to the use of an ambient scribe for clinic note documentation during this visit. Plan 1. Diabetes Mellitus - The patient's hemoglobin A1c has shown improvement, decreasing from 7.6% to 7.2% over two months. - Continue with the current management plan. - The treatment goal is to achieve a hemoglobin A1c of approximately 6.9%. - Patient was educated on the need for aggressive glycemic control to prevent complications. 2. Diabetic Neuropathy - The patient's reported hand numbness was attributed to diabetic neuropathy rather than poor circulation. - Educated the patient on how uncontrolled hyperglycemia can cause nerve damage, leading to symptoms of numbness in the hands and feet. - Advised on preventative foot care, including daily inspections, appropriate footwear, and annual podiatry visits to mitigate risks of unrecognized injuries, infections, and potential amputations. 3. White Coat Hypertension - Acknowledged the patient's elevated in-office blood pressure reading. - Reassured the patient that because her home blood pressure readings are normal, the high reading in the clinic is likely due to a white coat effect and is not a current concern. Discussion Notes I reviewed the patient's hemoglobin A1c results, which have improved from 7.6% to 7.2% over the last two months. We will continue her current management with a goal of achieving an A1c around 6.9%. I addressed her concern regarding hand numbness, explaining that it is likely a manifestation of diabetic neuropathy rather than a circulatory issue. I educated her on the importance of aggressive diabetes control to prevent progression of neuropathy and other complications, s uch as foot ulcers that can result from decreased sensation. I advised her on preventative foot care, including daily self-exams and annual podiatry visits. I also reassured her that the elevated blood pressure in the office is likely white coat hypertension, given her normal home readings, and that the visible bluish veins on her skin are a normal finding. Patient Instructions - Continue with your current diabetes management as your blood sugar levels are improving. - The numbness in your hands is likely due to your diabetes affecting the nerves; controlling your blood sugar will help with this. - Check your feet every day for cuts, sores, or any changes. - Be sure to see a foot doctor (installer helper) every year. - Your blood pressure being high at the doctor's office is likely due to ner vousness and is not a cause for concern since it is normal at home. - The blue-green appearance of veins under your skin is normal. - We will re-evaluate your progress after your trip in about two months. Medical Decision Making The patient is a 74-year-old female presenting for review of her diabetes management. Her recent labs show an improvement in her hemoglobin A1c from 7.6% to 7.2%, indicating a positive response to the current therapeutic regimen. The decision is to continue the current plan, as it is effective, with a goal of further reducing her A1c to an optimal level around 6.9%. Her new symptom of hand numbness is most consistent with diabetic neuropathy, given her history, rather than a primary circulatory problem. I provided education on this complication and the critical importance of aggressive glycemic control and preventative foot care to mitigate long-term risks, including ulceration and amputation. The patient's elevated in-office blood pressure is interpreted as white coat hypertension, supported by her report of normal home readings, and requires no immediate change in management. Total Time Statement 20 min Total time spent caring for the patient today includes pre-visit chart review, documentation, review of laboratory and diagnostic imaging results, medication reconciliation, medically necessary evaluation, counseling on diagnoses, care coordination, ordering appropriate tests and medications, review of tests performed by other providers, reporting test results to the patient, and communication with other healthcare providers.
[2025-04-07 14:43] VITALS: BP 148/65; PULSE 80; RESP 18; TEMP 36.6; O2SAT 99; BMI 33.4
--- OUTSIDE RECORDS SUMMARY | 2025-04-07 20:28 | XMS_ITS | Clinical Summary ---
Author Organization [facility] Health Address [address] [place] [address] Care Team Providers Care Release Engineer Name Role Phone Unavailable Primary Care [...] 01/11/2025 3:00 PM PDT Office Visit Dentists of [address] [phone] Dexter Quintero DDS from Last 3 Months [...] OFFICE VISIT Routine 01/11/2025 3:00 PM PDT UR PERIODONTAL SCALING AND ROOT PLANING - FOUR OR MORE TEETH PER QUADRANT Routine 12/16/2024 1:15 PM PDT TOPOGRAPHICAL ENGINEER CBCT Routine 12/15/2024 10:00 AM PDT NEW PATIENT ORALFITNESSCHECK INITIAL SCREEN Routine 12/15/2024 10:00 AM PDT NEW PATIENT SPECIAL EXAM - ADULT Routine 12/15/2024 10:00 AM PDT PANORAMIC RADIOGRAPHIC IMAGE Routine 10/09/2022 11:30 AM PDT INTRAORAL - COMPREHENSIVE SERIES OF RADIOGRAPHIC IMAGES Routine 10/09/2022 11:30 AM PDT from Last 3 Months or Most Recently Relevant to Health Maintenance [facility]
--- OUTSIDE RECORDS SUMMARY | 2025-04-07 20:28 | XMS_ITS | Patient Health Record ---
Author Organization [employer] Address [address] [place] [address] Care Team Providers Care Book Jacket Cover Machine Operator Name Role Phone Niraj Anna MD Primary [...] W/U Status Risk Notes Problem Mixed hyperlipidemia (753299560) Mixed hyperlipidemia (E78.2) Active confirmed Problem Primary insomnia (7484744) Primary insomnia (F51.01) Active confirmed Problem Gastroesophageal reflux disease (581387421) GERD without esophagitis (K21.9) Active confirmed Problem Essential hypertension (36355079) Essential (primary) hypertension (I10) Active confirmed Problem Polyneuropathy due to type 2 diabetes mellitus (942495468) Type 2 diabetes mellitus with diabetic polyneuropathy, without long-term current use of insulin (E11.42) Active confirmed Problem Type 2 diabetes mellitus with other specified complication, unspecified whether house wirer insulin use (E11.69) Active confirmed Problem Screening [...] Insured Coverage Start Date Coverage End Date [id number] [facility] [address] [address] [place], [place] [id number] [phone] Mimi Vallejo Self - patient is the insured Medical (General) History Medical History History ICD Code diabetes high cholesterol hypertension acid reflux insomnia neuropathy mamm[place]: [place]22 [place]oscopy: 2020[place], repeat in 2025 Surgical History Surgery Date(Month/Year) C section 1986 Hospitalization History Reason Date(Month/Year) 3 child 1973,1983, 1986 hypertension 2020
--- OUTSIDE RECORDS SUMMARY | 2025-04-07 20:28 | XMS_ITS | Clinical Summary ---
Author Organization [facility] Address [address] [place] [address] Care Team Providers Care Still Cleaner Tube Name Role Phone Chiki Jarquin DO Primary Care Provider [phone] Pravin Davis MD Unavailable Allergies Active Allergy [...] patient's age to complete this topic Insurance [facility] MEDICARE Care Teams Still Cleaner Tube Relationship Specialty Start Date End Date Chiki Jarquin DO [address] [place], [place] [phone] PCP - General Internal Medicine 09/10/24 Pravin Davis MD [address] [place] [address] Primary Grinder And Honer Operator Automatic Cardiovascular Disease 11/18/24
--- OUTSIDE RECORDS SUMMARY | 2025-04-07 20:29 | XMS_ITS | Encounter Summary ---
Author Organization [facility] Health Address [address] [place] [address] Care Team Providers Care Fire Prevention Chief Name Role Phone Unavailable Primary Care Provider Unavailabl e Prior Encounters Date Type Department Care Team Description 01/11/2025 3:00 PM PDT Office Visit Dentists [address] [phone] Dexter Quintero DDS 01/05/2025 10:30 AM PDT Office Visit Dentists [address] [phone] Dexter Quintero DDS 12/21/2024 2:00 PM PDT Office Visit Dentists [address] [address] Dexter Quintero DDS 12/16/2024 1:15 PM PDT Office Visit Dentists [address] [phone] [facility] 12/15/2024 10:00 AM PDT Office Visit Dentists [address] [address] Dexter Quintero DDS 10/09/2022 11:30 AM PDT Office Visit [facility] [address] [facility] [place] [address] Ana Maria Pennington DMD Last Filed Vital [...] - ADULT Routine 12/15/2024 10:00 AM PDT SACK CLEANER FOUR BITEWING XRAYS Routine 10:00 AM PDT NEW PATIENT INTRAORAL - PERIAPICAL FIRST RADIOGRAPHIC IMAGE Routine 12/15/2024 10:00 AM PDT SACK CLEANER CBCT Routine 12/15/2024 10:00 AM PDT ORAL [...] DENTOGNOSTICS Visit Diagnoses Not on file Insurance [facility]
--- OUTSIDE RECORDS SUMMARY | 2025-04-07 20:30 | XMS_ITS | Clinical Summary ---
Author Organization [facility] Address [address] [place] [address] Phone Care Team Providers Care Opthalmic Tech Name Role Phone Chiki Jarquin DO Primary Care Provider [phone] Social History Tobacco Use Types Packs/Day Years [...] topic Insurance [employer] MED[employer] Care Teams Opthalmic Tech Relationship Specialty Start Date End Date Chiki Jarquin DO [address] [place] [id number] PCP - General Internal Medicine 10/06/24
--- OUTSIDE RECORDS SUMMARY | 2025-04-07 20:39 | XMS_ITS | Patient Health Record ---
Author Organization [facility] [employer] [facility] Address [address] [place] [address] Care Team Providers Care Split Leather Department Supervisor Name Role Phone Chiki Jarquin Primary Care Provider Sujata Santos Unavailable [phone] Allergies No Known Allergies Results Component Value Reference Range Flag Notes Comp Metabolic Panel w/eGFR 86149 Reviewed date:2024 01:53:00 PM Interpretation:glucose 125 Performing Lab:1, , [address] [place], [address] Catie Maier M.D. Notes/Report: Received Date: 0; [...] PM Interpretation: Normal Performing Lab:NL1, , [address] [place], [address] Catie Maier M.D. Notes/Report: Received Date: [id number] 0; 0; 0; 0; 0 FASTING:YES PATIENT [...] 01:53:00 PM Interpretation:7.6 Performing Lab:NL1, , [address] [place], [address] Catie Maier M.D. Notes/Report: Received Date: [id number] 0; 0; 0; 0; 0 FASTING:YES PATIENT [...] diabetes for children. Lipid Panel w/refl LDL 64543 Reviewed date:2024 01:53:00 PM Interpretation: Normal Performing Lab:NL1, , [address] [place], [address] Catie Maier M.D. Notes/Report: Received Date: [id number] 0; 0; 0; 0; 0 FASTING:YES PATIENT [...] LDL-C. Lewis SS et al. ARMAND. 2013;310(19): 3355-4541 (http://education.StylePuzzle/faq/UPE901) CHOL/HDLC RATIO 3.1 <5.0 (calc) N NON HDL CHOLESTEROL 109 <130 mg/dL (calc) N For patients with diabetes plus 1 major ASCVD risk factor, treating to a non-HDL-C goal of <100 mg/dL (LDL-C of <70 mg/dL) is considered a therapeutic option. Urinalysis IH Reviewed date:09/03/2024 11:28:25 AM Interpretation:Normal Performing Lab: Notes/Report: Normal Exp. Date 02/01/2025 Lot No. [id number] Leuko Negative Nitrite Negative Urobilinogen 0.2 Protein Negative pH 6.0 Blood Negative Sp. Gr. 1.010 Ketone Negative Biliruben Negative Glucose 100 mg/dl Reason For Referral Reason chest pain Diagnosis 1 Chest pain (R07.9) Diagnosis 2 Long QT interval (I4 5.81) Diagnosis 3 Congestive heart dis ease (I50.9) Diagnosis 4 Left axis deviation (R94.31) Referral Organization [facility] Referring Provider First Name Chiki Referring Provider Last Name Britton Referring Provider Speciality Internal M edicine Referred Provider [facility] Referred Provider Specialty Cardiology General Notes [place] Referral Crossing Supervisor olman, Roxann 09/07/2024 02:12:09 PM > faxed referral medical summary progress note labs noEKG [phone], pernell, support 09/07/2024 14:23:00 PM>, [facility]: Referral for , [facility] no auth required, pernell, support 09/07/2024 14:23:00 PM>, [facility]: Referral Recommendations Sent to Patient , [facility] , [address] , [facility], [id number] , , , pernell, support 09/10/2024 14:26:00 PM>, [facility] 09/10/24 02:15 PM: Patient Reviewed Link, pernell, support 09/15/2024 14:23:00 PM>, [facility] 09/15/24 02:17 PM: Patient Confirmed Appt Scheduled, pernell, support 09/20/2024 10:39:00 AM>, [facility] 09/20/24 09:55 AM: Patient opted out of SMS communication., pernell, support 10/20/2024 15:51:42 PM>, [facility] Summary, [facility] 09/07/24 01:13 PM: Patient Sent Specialist Recommendation , [facility] , [address] , [facility], [id number] , , , [facility] 09/10/24 01:13 PM: [...] perception of literacy I read well in: Prydeinig Afghan, 08/09/2024 ES Tobacco Control (Standard) Tobacco use: Nonsmoker Health Literacy How confident are yo u filling out medical forms by yourself? 1 Extremely 08/09/2024 ES How do you like To Learn : all of them, 08/09/2024 ES Language Spoken Language Spoken Afghan, Prydeinig 025 ES // Prydeinig is 1st language Problems Problem Type SNOMED Code ICD Code Onset Dates Problem Status W/U Status Risk Notes Problem Body mass index 30.00 to 34.99 (518515206258853 ) Body mass index (BMI) 33.0-33.9, adult (Z68.33) Active confirmed Problem Body mass index 30.00 to 34.99 (988223725075423 ) Body mass index (BMI) 34.0-34.9, adult (Z68.34) Active confirmed Problem Hypertension (04066199) Hypertension (I10) Active confirmed Problem Long QT syndrome (3175734) Long QT interval (I45.81) Active confirmed Problem Congestive heart disease (28224095) Congestive heart disease (I50.9) Active confirmed Problem Left axis deviation (68495387) Left axis deviation (R94.31) Active confirmed Problem Type II diabetes mellitus without complication (823155497) DM type 2, goal HbA1c < 7% (E11.9) Active confirmed Vital Signs Temperature 98.5 degrees Fahrenheit 09/03/2024 Respiratory Rate 16 /min 09/03/2024 Oximetry 98 % 09/03/2024 Blood pressure diastolic 85 mm Hg 09/03/2024 Height 57 in 09/03/2024 Blood pressure systolic 138 mm Hg 09/03/2024 Weight 156.4 lbs 09/03/2024 BMI 33.84 kg/m2 09/03/2024 Encounters Encounter Location Date Provider Diagnosis [facility] of [address] [address] 08/09/2024 Chiki Jarquin DM type 2, goal HbA1 c < 7% E11.9 [facility] of [address] [address] 08/10/2024 Chiki Jarquin [address] [address] 08/20/2024 Chiki Jarquin [address] [address] 2024 Chiki Jarquin [address] [address] 09/13/2024 Chiki Jarquin [facility] [place] [address] 10/15/2024 Chiki Jarquin [address] [id number] [address] 10/21/2024 Chiki Jarquin [address] [address] 11/16/2024 Chiki Jarquin [address] [address] 11/18/2024 Chiki Jarquin [address] [address] 12/13/2024 Chiki Jarquin Hypertension I10 and DM type 2, goal HbA1c < 7% E11.[address] [address] 09/03/2024 Chiki Jarquin Chest pain R07.9 ; Congestive heart disease I50.9 ; Left axis deviation R94.31 ; Long QT interval I45.81 ; Hypertension I10 ; Body mass index (BMI) 33.0-33.9, adult Z68.33 and Dysuria R30.[address] [address] 08/09/2024 Chiki Jarquin Encounter for behavioral health [...] Treatment Pending Test Test Name Order Date Microalbumin,[facility] (w/creat) 6517 11/2024 Cologuard 10/22/2024 Insurance Providers Payer Name Payer Address Payer Phone Subscriber Number Group Number Insured Name Patient Relationship to Insured Coverage Start Date Coverage End Date [facility] - Medical [address] [place] [address] [id number] Mimi Vallejo Self - patient is the insured [facility] Medicare Adv PPO - [address] [place] [address] [id number] Mimi Vallejo Self - patient is the insured Medical (General) History Hospitalization History Reason Date(Month/Year) HTN
== END 2025-04-07 14:56 | disposition home or self-care (01) ==
LOC: HO.HMCFMS 14:36
PROVIDERS: PCP Student in an Organized Health Care Education/Training Program; Visit Provider Student in an Organized Health Care Education/Training Program
DX: I10 Essential (primary) hypertension (principal); K21.9 Gastro-esophageal reflux disease without esophagitis; E11.40 Type 2 diabetes mellitus with diabetic neuropathy, unspecified

== ENCOUNTER → 2025-04-07 14:35 | Outpatient (BNVA) | payer OTHER, SELFPAY | PROVIDERS: PCP Student in an Organized Health Care Education/Training Program; Visit Provider Student in an Organized Health Care Education/Training Program | DX: I10 Essential (primary) hypertension (principal); E11.9 Type 2 diabetes mellitus without complications; K21.9 Gastro-esophageal reflux disease without esophagitis; E11.40 Type 2 diabetes mellitus with diabetic neuropathy, unspecified | CPT/HCPCS: 99212 ==